=== PATIENT | female | born 1980 | race Caucasian/White ===

== ENCOUNTER 2016-12-02 13:29 | Emergency (ER) | payer OTHER ==
[2016-12-02 13:33] VITALS: BP 126/63; PULSE 96; TEMP 97.6; BMI 33.9
--- NOTE | 2016-12-02 13:58 | PDOC ---
History of Present Illness - General Chief Complaint: Injury Stated Complaint: FEVER, EYE PAIN, FOOT PAIN Time Seen by Provider: 12/02/16 13:47 History Source: Patient Exam Limitations: No Limitations - History of Present Illness Initial Comments: CHIEF COMPLAINT: 36 y/o afebrile, morbidly obese female with PMH seizures (on Topamax, sees Umberto) and migraines c/o left ankle pain and fever. HISTORY OF PRESENT ILLNESS: The patient states that 5 days ago she had a very slight seizure. Her mother states it always takes her a while to get back to "normal" after a seizure. For the past few days she's had a fever and yesterday she tripped, twisting her left ankle but hitting the left side of her head on a dresser when she fell. She is unsure of LOC. She states she is mainly here for her ankle but is concerned she has a cough and fever and wants to make sure she doesn't have pneumonia. She denies changes in vision/hearing, SNEED, neck pain, bleeding from ears/eyes, n/v/d, SOB, abd pain. She has been taking tylenol and motrin for fever with last motrin dose a few hours before coming to the ER. Vital signs on arrival are within normal limits. REVIEW OF SYSTEMS: GENERAL/CONSTITUTIONAL: +fever. No weakness. No weight change. HEAD, EYES, EARS, NOSE AND THROAT: No change in vision. No ear pain or discharge. No sore throat. CARDIOVASCULAR: No chest pain or shortness of breath. RESPIRATORY: +cough. No wheezing or hemoptysis. GASTROINTESTINAL: No abd pain, nausea, vomiting, diarrhea. GENITOURINARY: No dysuria, frequency, or change in urination. MUSCULOSKELETAL: +left ankle pain and swelling. No neck or back pain. SKIN: No rash or easy bruising. NEUROLOGIC: +seizure a few days ago. ?LOC. No headache, vertigo, or loss of sensation. PHYSICAL EXAM: GENERAL: The patient is awake, alert, and fully oriented, in no acute distress. She is ambulatory but with pain. No cough throughout exam. HEAD: Normal with no signs of trauma. No hematomas or areas of ecchymosis. No battles signs. ENT: Pupils equal, round and reactive to light, extraocular movements intact, sclera anicteric, conjunctiva clear. Neck supple. No hemotympanum b/l. No raccoon eyes. LUNGS: Clear to auscultation bilaterally. Normal excursion. No respiratory distress or use of accessory muscles. CV: RRR, S1/S2, no MRG. Cap refill < 2 sec. ABDOMEN: Soft, non-distended, non-tender even to deep palpation, no hepatomegaly or splenomegaly, no masses. EXTREMITIES: Minimal edema to left ankle over lateral malleolus. Full ROM of left ankle but with pain. TTP of medial and lateral malleolus. No erythema, obvious deformities or warmth. NEUROLOGICAL: Normal speech, normal gait. CN II-XII grossly intact. No slurred speech. No facial drooping. PSYCH: Normal mood, normal affect. SKIN: Warm, dry, normal turgor, no rashes or lesions noted. Past History - Past Medical History Allergies/Adverse Reactions: Allergies Allergy/AdvReac Type Severity Reaction Status Date / Time Penicillins Allergy Rash Verified 12/02/16 13:33 Sulfa (Sulfonamide Allergy Verified 12/02/16 13:33 Antibiotics) Home Medications: Ambulatory Orders Alprazolam [Xanax] 1 mg PO BID 01/05/16 Naproxen [EC-Naprosyn] 375 mg PO BID #30 tablet.ec 01/05/16 Azithromycin [Zithromax 250mg Tablets -] 250 mg PO UTDICT #6 tab 12/02/16 Anemia: No Asthma: No Cancer: No Cardiac Disorders: Yes (MVP) Diabetes: No GI Disorders: Yes (GERD) Disorders: No HTN: No Psychiatric Problems: Yes (ANXIETY, INSOMNIA) Suicide Attempt (Hx): No Seizures: Yes - Immunization History Immunization Up to Date: Yes - Psycho/Social/Smoking Cessation Hx Anxiety: Yes Suicidal Ideation: No Smoking Status: No Smoking History: Never smoked Have you smoked in the past 12 months: No Number of Cigarettes Smoked Daily: 0 Hx Alcohol Use: No Drug/Substance Use Hx: No Substance Use Type: None Hx Substance Use Treatment: Yes *Physical Exam - Vital Signs Last Vital Signs Temp Pulse Resp BP Pulse Ox 97.6 F 96 H 18 126/63 100 12/02/16 13:30 12/02/16 13:30 12/02/16 13:30 12/02/16 13:30 05/07/17 13:30 Medical Decision Making - Medical Decision Making A/P: 36 y/o female with left ankle injury and cough with fever. Plan is as follows: 1. hcg 2. CXR 3. Left ankle/foot xray Suggested head CT but the patient states she has seizures quite often and doesn' t have a head CT every time. She did say she is following up with Dr. Shipman this week and therefore refusing head CT. CXR IMPRESSION: Right middle lobe infiltrate Left foot xray IMPRESSION: No acute pathology. The patient now decided she would like a head CT Will give PO azithro for PNA Head CT IMPRESSION: Normal CT of the head Will d/c to home with rx for zpack for pneumonia. Suggested she continue taking motrin/tylenol for fever and drink plenty of fluids. Suggested she also drink plenty of fluids, get lots of rest, take her seizure meds as prescribed and f/u wtih Dr. Shipman this week. Pt instructed to return to the ER with any worsening or concerning symptoms. The patient verbalizes understanding of all instructions, has no further questions and is awaiting discharge. *DC/Admit/Observation/Transfer Diagnosis at time of Disposition: Community acquired pneumonia Sprain of ankle Qualifiers: Encounter type: initial encounter Involved ligament of ankle: unspecified ligament Laterality: left Qualified Code(s): S93.402A - Sprain of unspecified ligament of left ankle, initial encounter - Discharge Dispostion Disposition: HOME Condition at time of disposition: Good - Prescriptions Prescriptions: Azithromycin [Zithromax 250mg Tablets -] 250 mg PO UTDICT #6 tab - Referrals Referrals: Luis Guzmán MD [Primary Care Provider] - - Patient Instructions Printed Discharge Instructions: DI for Pneumonia -- Adult, DI for Ankle Sprain , How To Perform RICE (Rest, Ice, Compress, Elevate) Additional Instructions: Discharge Instructions: -Take antibiotics as prescribed; a prescription was sent to your pharmacy -Take your seizure meds as prescribed -Take Tylenol or motrin for fever and drink plenty of fluids -Follow RICE instructions for your ankle -Follow up with Dr. Shipman this week -Return to the ER with any worsening or concerning symptoms.
[2016-12-02] MEDS ORDERED: AZITHROMYCIN 250 MG TABLET PO ONE (15:27)
[2016-12-02] MEDS ORDERED: AZITHROMYCIN 250 MG TABLET ONE (15:30)
== END 2016-12-02 16:15 | disposition home or self-care (01) ==
LOC: JERFT 13:29
DX: J18.9 Pneumonia, unspecified organism (principal); F41.9 Anxiety disorder, unspecified; K21.9 Gastro-esophageal reflux disease without esophagitis; G47.00 Insomnia, unspecified
CPT/HCPCS: 70450-TC; 71020-TC; 73610-TC-LT; 73630-TC-LT; 84703; 99281-25

== ENCOUNTER 2017-12-13 14:03 | Inpatient (IN) | payer OTHER ==
[2017-12-13 15:21] VITALS: BMI 40.6
--- NOTE | 2017-12-13 19:52 | HP ---
CIWA Score - CIWA Score Nausea/Vomitin Muscle Tremors: 3 Anxiety: 6 Agitation: 3 Paroxysmal Sweats: 2 Orientation: 0-Oriented Tacttile Disturbances: 3-Moderate Itch/Numb/Burn Auditory Disturbances: 2-Mild Harshness/Frighten Visual Disturbances: 2-Mild Sensitivity Headache: 2-Mild CIWA-Ar Total Score: 26 Admission ROS BHS - HPI Chief Complaint: DEPENDENT ON PRESCRIBED XANAX ON 50 MGS. OF MMTP FROM [facility] - LAST DOSE TODAY Allergies/Adverse Reactions: Allergies Allergy/AdvReac Type Severity Reaction Status Date / Time Penicillins Allergy Rash Verified 12/13/17 19:07 Sulfa (Sulfonamide Allergy Verified 12/13/17 19:07 Antibiotics) History of Present Illness: THE PT. IS REQUESTING ADMISSION TO THE DETOX UNIT FOR DETOX OF XANAX Exam Limitations: No Limitations - Ebola screening Have you traveled outside of the country in the last 21 days: No (N) Have you had contact with anyone from an Ebola affected area: No Have you been sick,other than usual withdrawal symptoms: No Do you have a fever: No - Review of Systems Constitutional: See HPI EENT: reports: See HPI, Tearing, Nose Congestion Respiratory: reports: See HPI Cardiac: reports: See HPI GI: reports: See HPI, Nausea, Abdominal cramping : reports: See HPI Musculoskeletal: reports: See HPI, Muscle Pain, Muscle Weakness Integumentary: reports: See HPI, Sweating Neuro: reports: See HPI, Headache, Seizure, Tremors Endocrine: reports: See HPI Hematology: reports: See HPI Psychiatric: reports: Judgement Intact, Orientated x3, Anxious, Depressed Patient History - Patient Medical History Hx Anemia: No Hx Asthma: No Hx Chronic Obstructive Pulmonary Disease (COPD): No Hx Cancer: No Hx Cardiac Disorders: Yes (MVP) Hx Hypertension: No Hx Seizures: Yes (LAST SEIZURE WAS IN 2014) Hx Diabetes: No Hx Gastrointestinal Disorders: Yes (GERD) Hx Genitourinary Disorders: No Hx Sexually Transmitted Disorders: No Hx Renal Disease (ESRD): No Hx Thyroid Disease: Yes (HYPOTHYROIDISM) Hx Human Immunodeficiency Virus (HIV): No Hx Hepatitis C: No Hx Depression: Yes Hx Suicide Attempt: No Hx Schizophrenia: No Other Medical History: ANXIETY DISORDER; MIGRAINE - Patient Surgical History Past Surgical History: Yes Hx Neurologic Surgery: No Hx Cataract Extraction: No Hx Cardiac Surgery: No Hx Lung Surgery: No Hx Breast Surgery: No Hx Breast Biopsy: No Hx Abdominal Surgery: No Hx Appendectomy: No Hx Cholecystectomy: No Hx Genitourinary Surgery: No Hx Section: Yes (X 1 IN 2008) Hx Orthopedic Surgery: No Anesthesia Reaction: No - PPD History Previous Implant?: Yes Documented Results: Negative w/o proof - Reproductive History Patient is a Female of Child Bearing Age (11 -55 yrs old): Yes Last Menstrual Period: 12/06/17 Patient : No - Smoking Cessation Smoking history: Never smoked Have you smoked in the past 12 months: No Aproximately how many cigarettes per day: 0 Hx Chewing Tobacco Use: No Initiated information on smoking cessation: Yes 'Breaking Loose' booklet given: 12/13/17 - Substance & Tx. History Hx Alcohol Use: No Hx Substance Use: Yes Substance Use Type: Prescribed, Tranquilizers Hx Substance Use Treatment: No - Substances Abused Alprazolam (Xanax) Route: Oral Frequency: Daily Amount used: 3mg Age of first use: 13 Date of Last Use: 12/12/17 Family Disease History - Family Disease History Family Disease History: Diabetes: Mother (HTN) Admission Physical Exam BHS - Vital Signs Vital Signs: Vital Signs - 24 hr 12/13/17 15:17 Temperature 96.6 F L Pulse Rate 101 H Respiratory 18 Rate Blood Pressure 107/74 - Physical General Appearance: Yes: No Apparent Distress, Appropriately Dressed, Obese, Tremorous, Sweating, Anxious HEENTM: Yes: Normocephalic, Normal Voice, WENDY, Pharynx Normal, Nasal Congestion , Rhinorrhea Respiratory: Yes: Chest Non-Tender, Lungs Clear, Normal Breath Sounds, No Respiratory Distress, No Accessory Muscle Use Neck: Yes: No masses,lesions,Nodules, Supple, Trachea in good position Breast: Yes: Breast Exam Deferred, Axillae without masses, No masses Cardiology: Yes: Regular Rhythm, Regular Rate, S1, S2 Abdominal: Yes: Normal Bowel Sounds, Non Tender, Soft, Protuberent, Distended Back: Yes: Normal Inspection Musculoskeletal: Yes: full range of Motion, Gait Steady, Pelvis Stable, Muscle Pain, Muscle weakness Extremities: Yes: Normal Capillary Refill, Normal Range of Motion, Non-Tender, Tremors Neurological: Yes: 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 intact, Fully Oriented, Alert, Motor Strength 5/5, Normal Response, Depressed Affect Integumentary: Yes: Normal Color, Warm, Moist Lymphatic: Yes: Within Normal Limits - Diagnostic (1) Benzodiazepine dependence Current Visit: Yes Status: Chronic (2) Hypothyroid Current Visit: Yes Status: Chronic Qualifiers: Hypothyroidism type: unspecified Qualified Code(s): E03.9 - Hypothyroidism , unspecified (3) Obesity Current Visit: Yes Status: Chronic Qualifiers: Obesity type: unspecified obesity type (4) Seizure disorder Current Visit: Yes Status: Chronic (5) Migraine Current Visit: Yes Status: Chronic Qualifiers: Migraine type: unspecified (6) Migraine Current Visit: No Status: Chronic Cleared for Admission S - Detox or Rehab [facility] Level of Care: Medically Supervised Detox Regimen/Protocol: Valium Claeared for Rehab Admission: No S Breath Alcohol Content Breath Alcohol Content: 0 Urine Pregancy Test - Result Urine Test Results: Negative- NO Line Present Urine Drug Screen - Results Drug Screen Negative: No Urine Drug Screen Results: BZO-Benzodiazepines, MTD-Methadone
[2017-12-13] MEDS ORDERED: MAGNESIUM HYDROX 2400MG/30ML ORAL SUSPENSION 30 ML CUP PO PRN (20:07)
[2017-12-13] MEDS ORDERED: P-EPHED 60MG/TRIPROLIDI 2.5MG TABLET PO PRN (20:07)
[2017-12-13] MEDS ORDERED: hydrOXYzine PAMOATE 25 MG CAPSULE (FP) PO PRN (20:07)
[2017-12-13] MEDS ORDERED: MENTHOL/PHENOL 1 EACH UD MM PRN (20:07)
[2017-12-13] MEDS ORDERED: guaiFENesin/D-METHORPHAN HB 10 ML UNIT-DOSE CUPS PO PRN (20:07)
[2017-12-13] MEDS ORDERED: MAG HYDROX/AL HYDROX/SIMETH 30 ML UNIT-DOSE CUP PO PRN (20:07)
[2017-12-13] MEDS ORDERED: MAGNESIUM CITRATE 300 ML BOTTLE PO PRN (20:07)
[2017-12-13] MEDS ORDERED: LOPERAMIDE HCL 2 MG CAPSULE PO PRN (20:07)
[2017-12-13] MEDS ORDERED: IBUPROFEN 400 MG TABLET (FP) PO PRN (20:07)
[2017-12-13] MEDS ORDERED: diazePAM 5 MG TABLET PO ONE (20:07)
[2017-12-13] MEDS ORDERED: MELATONIN 5 MG TABLETS PO PRN (22:00)
[2017-12-13] MEDS: TOPIRAMATE 25 MG TABLET (FP) PO SCH (22:08)
[2017-12-13] MEDS: THIAMINE HCL 100 MG TABLET (FP) PO SCH (22:08)
[2017-12-13] MEDS: diazePAM 5 MG TABLET PO SCH (22:41)
[2017-12-14 02:05] LABS: URINE APPEARANCE SLCLOUDY; URINE BILIRUBIN NEGATIVE (<2.0 mg/dL); URINE COLOR DKYELLOW; URINE GLUCOSE (UA) NEGATIVE (NEGATIVE); URINE KETONE NEGATIVE (NEGATIVE); URINE LEUK ESTERASE TRACE (NEGATIVE); URINE NITRITE POSITIVE (NEGATIVE); URINE PROTEIN NEGATIVE (NEGATIVE); URINE UROBILINOGEN NEGATIVE mg/dL (0.2-1.0)
[2017-12-14 02:07] LABS: EPI CELLS MODERATE /HPF (FEW); URINE BACTERIA MANY /hpf (NONE SEEN); URINE MUCUS MANY
[2017-12-14] MEDS ORDERED: LEVOTHYROXINE NA 50 MCG TABLET (FP) PO SCH (07:00)
[2017-12-14] MEDS: diazePAM 5 MG TABLET PO SCH ×3 (07:43→22:46)
[2017-12-14] MEDS: diazePAM 5 MG TABLET PO PRN ×2 (10:11→17:40)
[2017-12-14] MEDS: PRENATAL VITAMINS W/ FOLIC ACID TABLET (FP) PO SCH (10:11)
[2017-12-14 10:45] LABS: HEMATOCRIT 37.9 % (32.4-45.2); HEMOGLOBIN 12.7 GM/dL (10.7-15.3); MCH 27.5 pg (25.7-33.7); MCHC 33.5 g/dl (32.0-36.0); MEAN CELL VOLUME 82.1 fl (80-96); MEAN PLT VOLUME 8.3 fl (7.5-11.1); PLATELET COUNT 244 K/MM3 (134-434); RBC 4.62 M/mm3 (3.60-5.2); RDW 15.1 % (11.6-15.6); WHITE BLOOD COUNT 6.7 K/mm3 (4.0-10.0)
[2017-12-14 10:53] LABS: CHLORIDE 109 mmol/L (98-107); SGPT/ALT 16 U/L (12-78); SODIUM 142 mmol/L (136-145)
[2017-12-14 11:00] LABS: ALBUMIN 3.4 g/dl (3.4-5.0); ALK PHOS 88 U/L (45-117); ANION GAP 7 (8-16); BILIRUBIN,TOTAL 0.4 mg/dL (0.2-1.0); BLOOD UREA NITROGEN 14 mg/dL (7-18); CALCIUM 8.2 mg/dL (8.5-10.1); CO2 26 mmol/L (21-32); CREATININE 0.9 mg/dL (0.55-1.02); GLUCOSE,RANDOM 76 mg/dL (74-106); TOT PROT 6.7 g/dl (6.4-8.2)
[2017-12-14 11:04] LABS: POTASSIUM 4.1 mmol/L (3.5-5.1)
[2017-12-14 11:05] LABS: SGOT/AST 16 U/L (15-37)
--- NOTE | 2017-12-14 11:36 | PN ---
S CIWA - CIWA Score Nausea/Vomitin Muscle Tremors: 3 Anxiety: 3 Agitation: 2 Paroxysmal Sweats: 3 Orientation: 0-Oriented Tacttile Disturbances: 0-None Auditory Disturbances: 0-None Visual Disturbances: 0-None Headache: 0-None Present CIWA-Ar Total Score: 14 BHS Progress Note (SOAP) Subjective: Shakes sweats sleep disturbance Objective: 12/14/17 11:28 A 7 O x 3 Ambulating steadily No acute distress Vital Signs Temperature 98.1 F 12/14/17 09:24 Pulse Rate 72 12/14/17 09:24 Respiratory Rate 16 12/14/17 09:24 Blood Pressure 109/63 12/14/17 09:24 O2 Sat by Pulse Oximetry (%) Laboratory Last Values WBC 6.7 K/mm3 (4.0-10.0) 12/14/17 07:50 RBC 4.62 M/mm3 (3.60-5.2) 12/14/17 07:50 Hgb 12.7 GM/dL (10.7-15.3) 12/14/17 07:50 Hct 37.9 % (32.4-45.2) 12/14/17 07:50 MCV 82.1 fl (80-96) 12/14/17 07:50 MCH 27.5 pg (25.7-33.7) 12/14/17 07:50 MCHC 33.5 g/dl (32.0-36.0) 12/14/17 07:50 RDW 15.1 % (11.6-15.6) D 12/14/17 07:50 Plt Count 244 K/MM3 (134-434) 12/14/17 07:50 MPV 8.3 fl (7.5-11.1) 12/14/17 07:50 Sodium 142 mmol/L (136-145) 12/14/17 07:50 Potassium 4.1 mmol/L (3.5-5.1) 12/14/17 07:50 Chloride 109 mmol/L (98-107) H 12/14/17 07:50 Carbon Dioxide 26 mmol/L (21-32) 12/14/17 07:50 Anion Gap 7 (8-16) L 12/14/17 07:50 BUN 14 mg/dL (7-18) 12/14/17 07:50 Creatinine 0.9 mg/dL (0.55-1.02) 12/14/17 07:50 Creat Clearance w eGFR > 60 (>60) 12/14/17 07:50 Random Glucose 76 mg/dL (74-106) 12/14/17 07:50 Calcium 8.2 mg/dL (8.5-10.1) L 12/14/17 07:50 Total Bilirubin 0.4 mg/dL (0.2-1.0) D 12/14/17 07:50 AST 16 U/L (15-37) 12/14/17 07:50 ALT 16 U/L (12-78) 12/14/17 07:50 Alkaline Phosphatase 88 U/L (45-117) 12/14/17 07:50 Total Protein 6.7 g/dl (6.4-8.2) 12/14/17 07:50 Albumin 3.4 g/dl (3.4-5.0) 12/14/17 07:50 Urine Color Dkyellow 12/13/17 22: Urine Appearance Slcloudy 12/13/17 22: Urine pH 5.0 (5.0-8.0) 12/13/17 22: Ur Specific [place] 1.018 (1.001-1.035) 12/13/17 22: Urine Protein Negative (NEGATIVE) 12/13/17 22: Urine Glucose (UA) Negative (NEGATIVE) 12/13/17 22: Urine Ketones Negative (NEGATIVE) 12/13/17 22: Urine Blood Negative (NEGATIVE) 12/13/17 22: Urine Nitrite Positive (NEGATIVE) 12/13/17 22: Urine Bilirubin Negative (<2.0 mg/dL) 12/13/17 22: Urine Urobilinogen Negative mg/dL (0.2-1.0) 12/13/17 22: Ur Leukocyte Esterase Trace (NEGATIVE) 12/13/17 22: Urine WBC (Auto) 2 /hpf (3-5) 12/13/17 22: Urine RBC (Auto) 3 /hpf (0-3) 12/13/17 22:19 Ur Epithelial Cells Moderate /HPF (FEW) 12/13/17 22:19 Urine Bacteria Many /hpf (NONE SEEN) 12/13/17 22:19 Urine Mucus Many 12/13/17 22:19 labs noted, UA indicative of UTI, pt denies any symptoms Assessment: 12/14/17 11:36 Withdrawal sx Plan: continue detox increase hydration Urine culture
[2017-12-14] MEDS ORDERED: METHADONE HCL 10 MG TABLET PO ONE (11:44)
[2017-12-14] MEDS: LEVOTHYROXINE NA 25 MCG TABLET (FP) PO SCH (11:47)
[2017-12-14] MEDS ORDERED: METHADONE 40 MG, METHADONE 10 MG PO ONE (12:00)
[2017-12-14] MEDS ORDERED: METHADONE HCL 10 MG TABLET ONE (12:02)
[2017-12-14] MEDS ORDERED: METHADONE HCL 40 MG DISPERSABLE TABLET ONE (12:02)
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
[2017-12-14] MEDS: QUEtiapine FUMARATE 100 MG TABLET (FP) PO SCH (22:45)
[2017-12-14] MEDS: THIAMINE HCL 100 MG TABLET (FP) PO SCH (22:45)
[2017-12-14] MEDS: TOPIRAMATE 25 MG TABLET (FP) PO SCH (22:46)
[2017-12-15] MEDS ORDERED: METHADONE HCL 40 MG DISPERSABLE TABLET ONE (04:21)
[2017-12-15] MEDS ORDERED: METHADONE HCL 10 MG TABLET ONE (04:22)
[2017-12-15] MEDS ORDERED: METHADONE HCL 10 MG TABLET PO SCH (06:00)
[2017-12-15] MEDS: LEVOTHYROXINE NA 25 MCG TABLET (FP) PO SCH (06:19)
[2017-12-15] MEDS: METHADONE 40 MG, METHADONE 10 MG PO SCH (06:21)
[2017-12-15] MEDS: diazePAM 5 MG TABLET PO PRN ×3 (06:22→17:39)
[2017-12-15] MEDS: PRENATAL VITAMINS W/ FOLIC ACID TABLET (FP) PO SCH (10:40)
[2017-12-15] MEDS: diazePAM 5 MG TABLET PO SCH ×2 (10:40→22:24)
--- NOTE | 2017-12-15 12:14 | PN ---
[facility] CIWA - CIWA Score Nausea/Vomitin-No Nausea/No Vomiting Muscle Tremors: 3 Anxiety: 3 Agitation: 3 Paroxysmal Sweats: 2 Orientation: 0-Oriented Tacttile Disturbances: 0-None Auditory Disturbances: 0-None Visual Disturbances: 0-None Headache: 0-None Present CIWA-Ar Total Score: 11 [facility] Progress Note (SOAP) Subjective: sweats anxiety body aches constipation Objective: 12/15/17 12:13 Vital Signs Temperature 97.7 F 12/15/17 10:24 Pulse Rate 71 12/15/17 10:24 Respiratory Rate 18 12/15/17 10:24 Blood Pressure 105/53 12/15/17 10:24 O2 Sat by Pulse Oximetry (%) Laboratory Tests 12/13/17 12/14/17 12/14/17 22:19 07:50 07:50 WBC 6.7 RBC 4.62 Hgb 12.7 Hct 37.9 MCV 82.1 MCH 27.5 MCHC 33.5 RDW 15.1 D Plt Count 244 MPV 8.3 Sodium 142 Potassium 4.1 Chloride 109 H Carbon Dioxide 26 Anion Gap 7 L BUN 14 Creatinine 0.9 Creat Clearance w eGFR > 60 Random Glucose 76 Calcium 8.2 L Total Bilirubin 0.4 D AST 16 ALT 16 Alkaline Phosphatase 88 Total Protein 6.7 Albumin 3.4 Urine Color Dkyellow Urine Appearance Slcloudy Urine pH 5.0 Ur Specific [place] 1.018 Urine Protein Negative Urine Glucose (UA) Negative Urine Ketones Negative Urine Blood Negative Urine Nitrite Positive Urine Bilirubin Negative Urine Urobilinogen Negative Ur Leukocyte Esterase Trace Urine WBC (Auto) 2 Urine RBC (Auto) 3 Ur Epithelial Cells Moderate Urine Bacteria Many Urine Mucus Many RPR Titer 12/14/17 07:50 WBC RBC Hgb Hct MCV MCH MCHC RDW Plt Count MPV Sodium Potassium Chloride Carbon Dioxide Anion Gap BUN Creatinine Creat Clearance w eGFR Random Glucose Calcium Total Bilirubin AST ALT Alkaline Phosphatase Total Protein Albumin Urine Color Urine Appearance Urine pH Ur Specific [place] Urine Protein Urine Glucose (UA) Urine Ketones Urine Blood Urine Nitrite Urine Bilirubin Urine Urobilinogen Ur Leukocyte Esterase Urine WBC (Auto) Urine RBC (Auto) Ur Epithelial Cells Urine Bacteria Urine Mucus RPR Titer Nonreactive aaox3 ambulating no acute distress pending repeated u/a Assessment: 12/15/17 12:14 withdrawal sx Plan: continue detox increase fluids colace tid encourage nestor
[2017-12-15] MEDS: DOCUSATE SODIUM 100 MG CAPSULE (FP) PO SCH ×2 (13:17→22:24)
[2017-12-15] MEDS: QUEtiapine FUMARATE 100 MG TABLET (FP) PO SCH (22:24)
[2017-12-15] MEDS: TOPIRAMATE 25 MG TABLET (FP) PO SCH (22:24)
[2017-12-15] MEDS: THIAMINE HCL 100 MG TABLET (FP) PO SCH (22:24)
[2017-12-16] MEDS: diazePAM 5 MG TABLET PO PRN ×3 (02:26→17:13)
[2017-12-16] MEDS ORDERED: METHADONE HCL 40 MG DISPERSABLE TABLET ONE (05:00)
[2017-12-16] MEDS ORDERED: METHADONE HCL 10 MG TABLET ONE (05:00)
[2017-12-16] MEDS: DOCUSATE SODIUM 100 MG CAPSULE (FP) PO SCH ×3 (05:41→22:54)
[2017-12-16] MEDS: METHADONE 40 MG, METHADONE 10 MG PO SCH (05:42)
[2017-12-16] MEDS: LEVOTHYROXINE NA 25 MCG TABLET (FP) PO SCH (06:23)
[2017-12-16] MEDS: ACETAMINOPHEN 325 MG TABLET (FP) PO PRN ×2 (10:32→17:13)
[2017-12-16] MEDS: PRENATAL VITAMINS W/ FOLIC ACID TABLET (FP) PO SCH (10:32)
[2017-12-16] MEDS: diazePAM 5 MG TABLET PO SCH ×2 (10:34→22:17)
--- NOTE | 2017-12-16 11:19 | PN ---
[facility] Progress Note (SOAP) Subjective: feeling better no tremor no sweat slept throughout the night social with peers in day room Objective: 12/16/17 11:18 Vital Signs Temperature 96.8 F L 12/16/17 09:41 Pulse Rate 84 12/16/17 09:41 Respiratory Rate 18 12/16/17 09:41 Blood Pressure 108/73 12/16/17 09:41 O2 Sat by Pulse Oximetry (%) Laboratory Last Values WBC 6.7 K/mm3 (4.0-10.0) 12/14/17 07:50 RBC 4.62 M/mm3 (3.60-5.2) 12/14/17 07:50 Hgb 12.7 GM/dL (10.7-15.3) 12/14/17 07:50 Hct 37.9 % (32.4-45.2) 12/14/17 07:50 MCV 82.1 fl (80-96) 12/14/17 07:50 MCH 27.5 pg (25.7-33.7) 12/14/17 07:50 MCHC 33.5 g/dl (32.0-36.0) 12/14/17 07:50 RDW 15.1 % (11.6-15.6) D 12/14/17 07:50 Plt Count 244 K/MM3 (134-434) 12/14/17 07:50 MPV 8.3 fl (7.5-11.1) 12/14/17 07:50 Sodium 142 mmol/L (136-145) 12/14/17 07:50 Potassium 4.1 mmol/L (3.5-5.1) 12/14/17 07:50 Chloride 109 mmol/L (98-107) H 12/14/17 07:50 Carbon Dioxide 26 mmol/L (21-32) 12/14/17 07:50 Anion Gap 7 (8-16) L 12/14/17 07:50 BUN 14 mg/dL (7-18) 12/14/17 07:50 Creatinine 0.9 mg/dL (0.55-1.02) 12/14/17 07:50 Creat Clearance w eGFR > 60 (>60) 12/14/17 07:50 Random Glucose 76 mg/dL (74-106) 12/14/17 07:50 Calcium 8.2 mg/dL (8.5-10.1) L 12/14/17 07:50 Total Bilirubin 0.4 mg/dL (0.2-1.0) D 12/14/17 07:50 AST 16 U/L (15-37) 12/14/17 07:50 ALT 16 U/L (12-78) 12/14/17 07:50 Alkaline Phosphatase 88 U/L (45-117) 12/14/17 07:50 Total Protein 6.7 g/dl (6.4-8.2) 12/14/17 07:50 Albumin 3.4 g/dl (3.4-5.0) 12/14/17 07:50 Urine Color Dkyellow 12/13/17 22:19 Urine Appearance Slcloudy 12/13/17 22:19 Urine pH 5.0 (5.0-8.0) 12/13/17 22:19 Ur Specific [place] 1.018 (1.001-1.035) 12/13/17 22:19 Urine Protein Negative (NEGATIVE) 12/13/17 22:19 Urine Glucose (UA) Negative (NEGATIVE) 12/13/17 22:19 Urine Ketones Negative (NEGATIVE) 12/13/17 22:19 Urine Blood Negative (NEGATIVE) 12/13/17 22: Urine Nitrite Positive (NEGATIVE) 12/13/17 22: Urine Bilirubin Negative (<2.0 mg/dL) 12/13/17 22:19 Urine Urobilinogen Negative mg/dL (0.2-1.0) 12/13/17 22:19 Ur Leukocyte Esterase Trace (NEGATIVE) 12/13/17 22:19 Urine WBC (Auto) 2 /hpf (3-5) 12/13/17 22:19 Urine RBC (Auto) 3 /hpf (0-3) 12/13/17 22:19 Ur Epithelial Cells Moderate /HPF (FEW) 12/13/17 22:19 Urine Bacteria Many /hpf (NONE SEEN) 12/13/17 22:19 Urine Mucus Many 12/13/17 22:19 RPR Titer Nonreactive (NONREACTIVE) 12/14/17 07:50 lab noted 12/16/17 11:20 asymptomatic uti Assessment: 12/16/17 11:20 mild withdrawal sx Plan: medically supervised detox increase oral fluid personal hygiene
[2017-12-16] MEDS: QUEtiapine FUMARATE 100 MG TABLET (FP) PO SCH (22:17)
[2017-12-16] MEDS: THIAMINE HCL 100 MG TABLET (FP) PO SCH (22:17)
[2017-12-16] MEDS: TOPIRAMATE 25 MG TABLET (FP) PO SCH (22:18)
--- NOTE | 2017-12-17 00:51 | EKG ---
Test Reason : Blood Pressure : / mmHG Vent. Rate : 084 BPM Atrial Rate : 084 BPM P-R Int : 142 ms QRS Dur : 096 ms QT Int : 390 ms P-R-T Axes : 049 -02 026 degrees QTc Int : 460 ms NORMAL SINUS RHYTHM NORMAL ECG WHEN COMPARED WITH ECG OF 28-JUL-2015 17:42, NO SIGNIFICANT CHANGE WAS FOUND Confirmed by HANH TURNER MD ([id number]) on 12/17/2017 12:51:30 AM Referred By: Confirmed By:HANH TURNER MD
[2017-12-17] MEDS ORDERED: METHADONE HCL 40 MG DISPERSABLE TABLET ONE (04:54)
[2017-12-17] MEDS ORDERED: METHADONE HCL 10 MG TABLET ONE (04:55)
[2017-12-17] MEDS: METHADONE 40 MG, METHADONE 10 MG PO SCH (05:56)
[2017-12-17] MEDS: LEVOTHYROXINE NA 25 MCG TABLET (FP) PO SCH (06:35)
[2017-12-17] MEDS: DOCUSATE SODIUM 100 MG CAPSULE (FP) PO SCH (07:12)
[2017-12-17 09:21] VITALS: BP 128/78; PULSE 95; TEMP 96.4
[2017-12-17] MEDS ORDERED: diazePAM 5 MG TABLET PO SCH (10:00)
--- NOTE | 2017-12-17 11:08 | DS ---
[facility] Detox Discharge Summary Admission Date: 12/13/17 Discharge Date: 12/17/17 - History Present History: Sedative Dependence Additional Comments: 37 years old female admitted to 12/13/17 for benzos withdrawal sx completed detox regimen tolerated well denies banzos withdrawal sx alert oriented x 3 wants to return home for fresh clothing and return to [facility] recommend community self management groups and self support meetings - Physical Exam Results Vital Signs: Vital Signs Temperature 96.4 F L 12/17/17 09:20 Pulse Rate 95 H 12/17/17 09:20 Respiratory Rate 20 12/17/17 09:20 Blood Pressure 128/78 12/17/17 09:20 O2 Sat by Pulse Oximetry (%) Pertinent Admission Physical Exam Findings: withdrawal sx Vital Signs Temperature 96.4 F L 12/17/17 09:20 Pulse Rate 95 H 12/17/17 09:20 Respiratory Rate 20 12/17/17 09:20 Blood Pressure 128/78 12/17/17 09:20 O2 Sat by Pulse Oximetry (%) Laboratory Last Values WBC 6.7 K/mm3 (4.0-10.0) 12/14/17 07:50 RBC 4.62 M/mm3 (3.60-5.2) 12/14/17 07:50 Hgb 12.7 GM/dL (10.7-15.3) 12/14/17 07:50 Hct 37.9 % (32.4-45.2) 12/14/17 07:50 MCV 82.1 fl (80-96) 12/14/17 07:50 MCH 27.5 pg (25.7-33.7) 12/14/17 07:50 MCHC 33.5 g/dl (32.0-36.0) 12/14/17 07:50 RDW 15.1 % (11.6-15.6) D 12/14/17 07:50 Plt Count 244 K/MM3 (134-434) 12/14/17 07:50 MPV 8.3 fl (7.5-11.1) 12/14/17 07:50 Sodium 142 mmol/L (136-145) 12/14/17 07:50 Potassium 4.1 mmol/L (3.5-5.1) 12/14/17 07:50 Chloride 109 mmol/L (98-107) H 12/14/17 07:50 Carbon Dioxide 26 mmol/L (21-32) 12/14/17 07:50 Anion Gap 7 (8-16) L 12/14/17 07:50 BUN 14 mg/dL (7-18) 12/14/17 07:50 Creatinine 0.9 mg/dL (0.55-1.02) 12/14/17 07:50 Creat Clearance w eGFR > 60 (>60) 12/14/17 07:50 Random Glucose 76 mg/dL (74-106) 12/14/17 07:50 beau Calcium 8.2 mg/dL (8.5-10.1) L 12/14/17 07:50 Total Bilirubin 0.4 mg/dL (0.2-1.0) D 12/14/17 07:50 AST 16 U/L (15-37) 12/14/17 07:50 ALT 16 U/L (12-78) 12/14/17 07:50 Alkaline Phosphatase 88 U/L (45-117) 12/14/17 07:50 Total Protein 6.7 g/dl (6.4-8.2) 12/14/17 07:50 Albumin 3.4 g/dl (3.4-5.0) 12/14/17 07:50 Urine Color Dkyellow 12/13/17 22:19 Urine Appearance Slcloudy 12/13/17 22:19 Urine pH 5.0 (5.0-8.0) 12/13/17 22:19 Ur Specific [place] 1.018 (1.001-1.035) 12/13/17 22:19 Urine Protein Negative (NEGATIVE) 12/13/17 22:19 Urine Glucose (UA) Negative (NEGATIVE) 12/13/17 22:19 Urine Ketones Negative (NEGATIVE) 12/13/17 22:19 Urine Blood Negative (NEGATIVE) 12/13/17 22: Urine Nitrite Positive (NEGATIVE) 12/13/17 22: Urine Bilirubin Negative (<2.0 mg/dL) 12/13/17 22: Urine Urobilinogen Negative mg/dL (0.2-1.0) 12/13/17 22:19 Ur Leukocyte Esterase Trace (NEGATIVE) 12/13/17 22:19 Urine WBC (Auto) 2 /hpf (3-5) 12/13/17 22:19 Urine RBC (Auto) 3 /hpf (0-3) 12/13/17 22:19 Ur Epithelial Cells Moderate /HPF (FEW) 12/13/17 22:19 Urine Bacteria Many /hpf (NONE SEEN) 12/13/17 22:19 Urine Mucus Many 12/13/17 22:19 RPR Titer Nonreactive (NONREACTIVE) 12/14/17 07:50 lab noted increase oral fluid asymptomatic - Treatment Hospital Course: Detox Protocol Followed, Detoxed Safely, Responded well, Discharged Condition Good, Rehab Referral Accepted Patient has Accepted a Re[facility] Referral to: [facility] - Medication Discharge Medications: Ambulatory Orders Alprazolam [Xanax] 1 mg PO BID 01/05/16 Naproxen [EC-Naprosyn 375 MG] 375 mg PO BID #30 tablet.ec 01/05/16 Topiramate [Topamax -] 50 mg PO BID 12/13/17 Levothyroxine [Synthroid -] 50 mcg PO DAILY #30 tablet 12/16/17 Methadone [Dolophine -] 50 mg PO DAILY 12/16/17 Quetiapine Fumarate [Seroquel] 100 mg PO HS #30 tablet 12/17/17 - Diagnosis (1) Benzodiazepine dependence Status: Acute (2) Opioid dependence on agonist therapy Status: Chronic (3) Hypothyroid Status: Chronic Qualifiers: Hypothyroidism type: unspecified Qualified Code(s): E03.9 - Hypothyroidism , unspecified - AMA Did Patient Leave Against Medical Advice: No
== END 2017-12-17 09:18 | disposition home or self-care (01) | DRG 773 ==
LOC: YASAS 14:03 → Y6N 20:02
PROVIDERS: ADMIT Surgery; ATTEND Surgery
PROC: HZ2ZZZZ Detoxification Services for Substance Abuse Treatment (ICD-10-PCS; principal; 2017-12-13)
DX: F11.20 Opioid dependence, uncomplicated (principal); F13.20 Sedative, hypnotic or anxiolytic dependence, uncomplicated; F31.9 Bipolar disorder, unspecified; F19.24 Other psychoactive substance dependence with psychoactive substance-induced mood disorder; F41.9 Anxiety disorder, unspecified; G43.909 Migraine, unspecified, not intractable, without status migrainosus; G47.00 Insomnia, unspecified; E66.9 Obesity, unspecified; Z68.41 Body mass index [BMI] 40.0-44.9, adult; Z86.69 Personal history of other diseases of the nervous system and sense organs; Z91.14 Patient's other noncompliance with medication regimen
CPT/HCPCS: 36415; 80053; 81003; 81015; 85027; 86593; 93005; 93010

== ENCOUNTER 2018-06-05 12:36 | Emergency (ER) | payer OTHER ==
[2018-06-05 12:41] VITALS: BP 103/57; PULSE 96; TEMP 98.2; BMI 35.5
[2018-06-05] MEDS ORDERED: ALBUTEROL SO4 2.5/IPRATROPIUM 0.5 INH SOL 3 ML VIAL.NEB. NEB ONE ×2 (13:03→13:32)
--- NOTE | 2018-06-05 13:06 | PDOC ---
History of Present Illness - General Chief Complaint: Cold Symptoms Stated Complaint: CONGESTED, SORE THROAT Time Seen by Provider: 06/05/18 12:47 History Source: Patient Exam Limitations: No Limitations - History of Present Illness Initial Comments: 06/05/18 13:03 38 yr female with c/o sore throat cough fever, urinary pain and urgency for 3 days. Pt denies vomiting or shortness of breath. Pt states she has wheezing at night. no back pain. Timing/Duration: reports: constant (3 days) Severity: reports: mild Past History - Past Medical History Allergies/Adverse Reactions: Allergies Allergy/AdvReac Type Severity Reaction Status Date / Time Penicillins Allergy Rash Verified 06/05/18 12:41 Sulfa (Sulfonamide Allergy Verified 06/05/18 12:41 Antibiotics) Home Medications: Ambulatory Orders Alprazolam [Xanax] 1 mg PO BID 01/05/16 Naproxen [EC-Naprosyn 375 MG] 375 mg PO BID #30 tablet.ec 01/05/16 Topiramate [Topamax -] 50 mg PO BID 12/13/17 Levothyroxine [Synthroid -] 50 mcg PO DAILY #30 tablet 12/16/17 Methadone [Dolophine -] 50 mg PO DAILY 12/16/17 Quetiapine Fumarate [Seroquel] 100 mg PO HS #30 tablet 12/17/17 Hydrocortisone Acetate [Hydrocortisone] 28 gm TP BID PRN #1 oint...g. 03/08/18 Naproxen [Naprosyn -] 500 mg PO TID #30 tablet 03/08/18 Albuterol Sulfate Inhaler - [Ventolin HFA Inhaler -] 1 - 2 inh PO QID #1 inhaler 06/05/18 Nitrofurantoin Macrocrystal [Macrodantin] 100 mg PO BID #14 capsule 06/05/18 Phenazopyridine HCl [Pyridium -] 200 mg PO PC #12 tablet 06/05/18 Anemia: No Asthma: No Cancer: No Cardiac Disorders: Yes (MVP) COPD: No Diabetes: No GI Disorders: Yes (GERD) Disorders: No HTN: No Kidney Stones: No Psychiatric Problems: Yes (ANXIETY, INSOMNIA) Seizures: Yes (LAST SEIZURE WAS IN 2014) Thyroid Disease: Yes (HYPOTHYROIDISM) Other medical history: leiden factor 5, obesity - Surgical History Abdominal Surgery: No Appendectomy: No Cardiac Surgery: No Cholecystectomy: No Lung Surgery: No Neurologic Surgery: No Orthopedic Surgery: No - Reproductive History PID: No - Immunization History Immunization Up to Date: Yes - Suicide/Smoking/Psychosocial Hx Smoking Status: No Smoking History: Never smoked Have you smoked in the past 12 months: No Number of Cigarettes Smoked Daily: 0 Information on smoking cessation initiated: No 'Breaking Loose' booklet given: 12/13/17 Hx Alcohol Use: No Drug/Substance Use Hx: No Substance Use Type: None, Prescribed, Tranquilizers Hx Substance Use Treatment: No Respiratory Specific PMHX - Complaint Specific PMHX Angina: No TB (Tuberculosis): No Review of Systems - Review of Systems Able to Perform ROS?: Yes Is the patient limited [place] proficient: No Constitutional: Yes: Symptoms Reported, Fever, Night Sweats HEENTM: Yes: Symptoms Reported, Throat Pain Respiratory: Yes: Cough, Wheezing Cardiac (ROS): No: Symptoms Reported ABD/GI: No: Symptoms Reported : Yes: Symptoms Reported *Physical Exam - Vital Signs Last Vital Signs Temp Pulse Resp BP Pulse Ox 98.2 F 96 H 19 103/57 L 95 06/05/18 12:38 06/05/18 12:38 06/05/18 12:38 06/05/18 12:38 06/05/18 12:38 - Physical Exam General Appearance: Yes: Nourished, Appropriately Dressed HEENT: positive: EOMI, WENDY, TMs Normal, Pharyngeal Erythema, Tonsillar Erythema. negative: Pharynx Normal, Tonsillar Exudate Neck: positive: Supple. negative: Lymphadenopathy (R), Lymphadenopathy (L) Respiratory/Chest: positive: Lungs Clear, Normal Breath Sounds Cardiovascular: positive: Regular Rhythm, Regular Rate Gastrointestinal/Abdominal: positive: Normal Bowel Sounds, Soft. negative: Tender Rectal Exam: positive: deferred Musculoskeletal: positive: Normal Inspection. negative: CVA Tenderness, CVA Tenderness (R), CVA Tenderness (L), Vertebral Tenderness Extremity: positive: Normal Capillary Refill, Normal Inspection, Normal Range of Motion Integumentary: positive: Normal Color, Dry, Warm, Rash (scatterd abdominal red papules ) Neurologic: positive: Fully Oriented, Alert, Normal Mood/Affect, Normal Response , Motor Strength 5/5 Medical Decision Making - Medical Decision Making 06/05/18 13:05 cc: sore throat , cough, dysuria will check strep, CXR , urine r/o UTI will give duoneb now 06/05/18 17:31 pt felt better after duoneb asking to go home wants to go home and rest pt drinking pleanty of fluids dc home with her mother. dc inst verbally given to the patient and the mother all questions asked and answered *DC/Admit/Observation/Transfer Diagnosis at time of Disposition: Bronchitis Urinary tract infection Qualifiers: Urinary tract infection type: acute cystitis Hematuria presence: with hematuria Qualified Code(s): N30.01 - Acute cystitis with hematuria - Discharge Dispostion Disposition: HOME Condition at time of disposition: Good - Prescriptions Prescriptions: Albuterol Sulfate Inhaler - [Ventolin HFA Inhaler -] 1 - 2 inh PO QID #1 inhaler Nitrofurantoin Macrocrystal [Macrodantin] 100 mg PO BID #14 capsule Phenazopyridine HCl [Pyridium -] 200 mg PO PC #12 tablet - Referrals Referrals: Ludy Aparicio [Primary Care Provider] - - Patient Instructions Additional Instructions: please drink pleanty of fluids to stay well hydrated use the inhaler at home as directed take ibuprofen 600mg every 8hrs for fever or pain take the anitbiotocs and pyridium for urinary pain as directe follow with your doctor on SATURDAY for follow up return if worse - Post Discharge Activity
[2018-06-05 13:30] LABS: HCG,QUALITATIVE URINE Negative
[2018-06-05 13:39] LABS: EPI CELLS MODERATE /HPF (FEW); URINE BACTERIA MANY /hpf (NONE SEEN); URINE MUCUS MANY
[2018-06-05 14:13] LABS: PH,URINE 7.5 (5.0-8.0); URINE APPEARANCE Clear; URINE BILIRUBIN Negative (<2.0 mg/dL); URINE COLOR Yellow; URINE GLUCOSE (UA) Negative (NEGATIVE); URINE KETONE Trace (NEGATIVE); URINE LEUK ESTERASE TRACE (NEGATIVE); URINE NITRITE Positive (NEGATIVE); URINE PROTEIN 1+ (NEGATIVE)
== END 2018-06-05 14:20 | disposition home or self-care (01) ==
LOC: JERFT 12:36
PROC: 3E0F7GC Introduction of Other Therapeutic Substance into Respiratory Tract, Via Natural or Artificial Opening (ICD-10-PCS; principal; 2018-06-05)
DX: J40 Bronchitis, not specified as acute or chronic (principal); N30.01 Acute cystitis with hematuria; F41.9 Anxiety disorder, unspecified; G47.00 Insomnia, unspecified; D68.51 Activated protein C resistance; Z86.69 Personal history of other diseases of the nervous system and sense organs
CPT/HCPCS: 71046-TC-FY; 81003; 81015; 84703; 87070; 87086; 87186; 87430; 99281-25

== ENCOUNTER 2018-06-09 14:43 | Inpatient (IN) | payer OTHER ==
[2018-06-09 14:58] VITALS: BMI 35.6
--- NOTE | 2018-06-09 15:18 | PDOC ---
History of Present Illness - General Chief Complaint: Shortness of Breath Stated Complaint: SOB,REVISIT History Source: Patient, Family Exam Limitations: No Limitations - History of Present Illness Initial Comments: 06/09/18 16:35 This is a 38 year old female with a history of anxiety, depression, seizure, on methadone, who presents with shortness of breath, cough, sputum production, sore throat, fever for the past five days. Patient also endorses rash on abdomen , wrist, back. Patient visited ER on 06/05 for same symptoms with associated urinary complaints, and was diagnosed with UTI, sent home on nitrofurantoin and given a breathing treatment. At that time, rapid strep and cxr were negative. Today; patient hypoxic, 88 on RA PMH: seizure, anxiety, depression, previous drug abuse, now on methadone PSH:c sec Social history; denies any tobacco use or alcohol use ; no current drug use but on methadone Allergies: penicillin, sulfa; rxn hives 06/09/18 17:46 Past History - Past Medical History Allergies/Adverse Reactions: Allergies Allergy/AdvReac Type Severity Reaction Status Date / Time Penicillins Allergy Rash Verified 06/09/18 14:53 Sulfa (Sulfonamide Allergy Verified 06/09/18 14:53 Antibiotics) Home Medications: Ambulatory Orders Alprazolam [Xanax] 1 mg PO BID 01/05/16 Naproxen [EC-Naprosyn 375 MG] 375 mg PO BID #30 tablet.ec 01/05/16 Topiramate [Topamax -] 50 mg PO BID 12/13/17 Levothyroxine [Synthroid -] 50 mcg PO DAILY #30 tablet 12/16/17 Methadone [Dolophine -] 50 mg PO DAILY 12/16/17 Quetiapine Fumarate [Seroquel] 100 mg PO HS #30 tablet 12/17/17 Hydrocortisone Acetate [Hydrocortisone] 28 gm TP BID PRN #1 oint...g. 03/08/18 Naproxen [Naprosyn -] 500 mg PO TID #30 tablet 03/08/18 Albuterol Sulfate Inhaler - [Ventolin HFA Inhaler -] 1 - 2 inh PO QID #1 inhaler 06/05/18 Nitrofurantoin Macrocrystal [Macrodantin] 100 mg PO BID #14 capsule 11/08/18 Phenazopyridine HCl [Pyridium -] 200 mg PO PC #12 tablet 06/05/18 Anemia: No Asthma: No Cancer: No Cardiac Disorders: Yes (MVP) COPD: No Diabetes: No GI Disorders: Yes (GERD) Disorders: No HTN: No Kidney Stones: No Psychiatric Problems: Yes (ANXIETY, INSOMNIA) Seizures: Yes (LAST SEIZURE WAS IN 2014) Thyroid Disease: Yes (HYPOTHYROIDISM) - Surgical History Abdominal Surgery: No Appendectomy: No Cardiac Surgery: No Cholecystectomy: No Lung Surgery: No Neurologic Surgery: No Orthopedic Surgery: No - Reproductive History PID: No - Immunization History Immunization Up to Date: Yes - Suicide/Smoking/Psychosocial Hx Smoking Status: No Smoking History: Unknown if ever smoked Have you smoked in the past 12 months: No Number of Cigarettes Smoked Daily: 0 Information on smoking cessation initiated: No 'Breaking Loose' booklet given: 12/13/17 Hx Alcohol Use: No Drug/Substance Use Hx: No Substance Use Type: None, Prescribed, Tranquilizers Hx Substance Use Treatment: No Review of Systems - Review of Systems Able to Perform ROS?: Yes Is the patient limited [place] proficient: No Constitutional: Yes: Fever HEENTM: Yes: Throat Pain. No: Blurred Vision, Double Vision, Ear Pain, Ear Discharge, Nose Congestion, Nose Bleeding, Difficulty Swallowing Respiratory: Yes: Cough, Shortness of Breath, SOB with Exertion, SOB at Rest, Wheezing, Productive cough. No: Hemoptysis Cardiac (ROS): No: Chest Pain, Edema, Irregular Heart Rate ABD/GI: No: Abdominal Distended, Nausea, Vomiting : Yes: Frequency. No: Burning, Dysuria, Flank Pain Musculoskeletal: No: Back Pain, Joint Pain Integumentary: Yes: Rash (puritic ; raised white dots on skin). No: Bruising, Change in Color Neurological: Yes: Seizure. No: Headache, Numbness, Paresthesia, Weakness *Physical Exam - Vital Signs Last Vital Signs Temp Pulse Resp BP Pulse Ox 99.8 F H 91 H 22 H 104/68 92 L 06/09/18 14:56 06/09/18 14:56 06/09/18 14:56 06/09/18 14:56 06/09/18 14:56 - Physical Exam General Appearance: Yes: Appropriately Dressed HEENT: positive: Normal ENT Inspection, Pharynx Normal, Nasal Congestion. negative: Scleral Icterus (R), Tonsillar Erythema Neck: negative: Stridor, Lymphadenopathy (R), Lymphadenopathy (L) ED Treatment Course - LABORATORY CBC & Chemistry Diagram: 06/09/18 16:00 06/09/18 16:00 Medical Decision Making - Medical Decision Making 06/09/18 17:47 This is a 38 year old female with a history of seizure disorder, anxiety, depression, who presents with worsening sob, cough, fever, chills at home for the past five days. r/o acute broncospasm, bronchitis, pneumonia, viral URI. NO reported history of asthma, copd or smoking history. Patient was her a few days ago diagnosed with UTI, urine culture grew ESBL. OF note patient took of oxygen to cough, desaturated to 86.; may not be documented on vitals #acute hypoxic respiratory failure secondary possible to acute lung process/ with sepsis source lung/ urine ? -sepsis work up -cbc, cmp, lactic acid,vbg, ua, uc, blood culture. -cxr -start nasal O2; now at 2L -bronchodilators -1x IV steroids 06/09/18 18:03 -wbc 10.6; -will admit to hospitalist under Dr. Peter for sepsis with acute hypoxic respiratory failure for further work up for source and treatment *DC/Admit/Observation/Transfer Diagnosis at time of Disposition: Acute respiratory failure with hypoxia, Bronchospasm with bronchitis, acute, UTI (urinary tract infection) - Discharge Dispostion Condition at time of disposition: Fair Decision to Admit order: Yes - Referrals Referrals: Ludy Aparicio [Primary Care Provider] - - Patient Instructions - Post Discharge Activity
[2018-06-09] MEDS ORDERED: ALBUTEROL SO4 2.5/IPRATROPIUM 0.5 INH SOL 3 ML VIAL.NEB. NEB ONE ×5 (15:39→18:18)
[2018-06-09 16:31] LABS: BASO % 0.6 % (0-2.0); EOS % 2.2 % (0-4.5); HEMATOCRIT 36.6 % (32.4-45.2); HEMOGLOBIN 12.2 GM/dL (10.7-15.3); LYMPH % 19.9 % (8-40); MCH 28.2 pg (25.7-33.7); MCHC 33.2 g/dl (32.0-36.0); MEAN CELL VOLUME 84.8 fl (80-96); MEAN PLT VOLUME 7.7 fl (7.5-11.1); MONO % 5.5 % (3.8-10.2); NEUT % 71.8 % (42.8-82.8); PLATELET COUNT 293 K/MM3 (134-434); RBC 4.32 M/mm3 (3.60-5.2); RDW 14.3 % (11.6-15.6); WHITE BLOOD COUNT 10.6 K/mm3 (4.0-10.0)
[2018-06-09] MEDS ORDERED: SODIUM CHLORIDE 0.9% 500 ML INFUS.BAG IV ONE (16:34)
[2018-06-09 16:39] LABS: VENOUS PC02 44.9 mmHg (38-52); VENOUS PH 7.46 (7.32-7.42); VENOUS PO2 42.2 mmHg (28-48)
[2018-06-09 16:43] LABS: URINE APPEARANCE CLEAR; URINE BILIRUBIN NEGATIVE (<2.0 mg/dL); URINE COLOR AMBER; URINE GLUCOSE (UA) NEGATIVE (NEGATIVE); URINE KETONE NEGATIVE (NEGATIVE); URINE LEUK ESTERASE NEGATIVE (NEGATIVE); URINE NITRITE POSITIVE (NEGATIVE); URINE PROTEIN 1+ (NEGATIVE); URINE UROBILINOGEN 4.0 E.U/dl mg/dL (0.2-1.0)
[2018-06-09] MEDS ORDERED: methylPREDNISolone NA SUCC 125 MG/2 ML VIAL IVPUSH ONE (16:44)
[2018-06-09 16:51] LABS: INR 1.13 (0.83-1.09); PROTHROMBIN TIME (PATIENT) 13.3 SEC (9.7-13.0)
[2018-06-09 16:53] LABS: ACTIVATED PTT 26.8 SECONDS (25.2-36.5)
[2018-06-09 17:02] LABS: ALBUMIN 3.3 g/dl (3.4-5.0); ALK PHOS 86 U/L (45-117); ANION GAP 7 MMOL/L (8-16); BILIRUBIN,TOTAL 0.3 mg/dL (0.2-1); BLOOD UREA NITROGEN 10 mg/dL (7-18); CALCIUM 8.5 mg/dL (8.5-10.1); CHLORIDE 102 mmol/L (98-107); CO2 29 mmol/L (21-32); CREATININE 0.8 mg/dL (0.55-1.3); GLUCOSE,RANDOM 89 mg/dL (74-106); SGOT/AST 14 U/L (15-37); SGPT/ALT 15 U/L (13-61); SODIUM 138 mmol/L (136-145); TOT PROT 6.9 g/dl (6.4-8.2)
--- NOTE | 2018-06-09 17:23 | PDOC ---
Attending Attestation - Resident Resident Name: Stephie Pichardo - ED Attending Attestation I have performed the following: I have examined & evaluated the patient, The case was reviewed & discussed with the resident, I agree w/resident's findings & plan, Exceptions are as noted - HPI HPI: 06/09/18 17:20 38 yo F with no pmhx here with c/o sore throat, cough wheezing sob. fever and chills. was seen in ed few days ago, started on abx for uti but denies prior urinary sxs. no travel no sick contacts. no h/o prior wheezing. no tobacco use. no n/v . no leg swelling. no h/o pe or dvt. - Physicial Exam PE: 06/09/18 17:21 on exam awake alert lungs with diffuse expiratory wheezing. 89% on RA, 97% on 2L NC, normal effort. heart reg tachycardia, no mrg. abd soft ntn d. ext wwp skin warm and dry. nuero alert oriented x 3. - Medical Decision Making 06/09/18 17:22 38 yo F with bronchitis viral syndrome, differential pna, effusion, strept, sepsis. plan labs ivf, ekg cxr duonebs. steroids. will likely need admission for duonebs, due to hypoxia.
[2018-06-09 18:09] LABS: EPI CELLS RARE /HPF (FEW); URINE MUCUS MODERATE
[2018-06-09] MEDS ORDERED: methylPREDNISolone NA SUCC 125 MG/2 ML VIAL ONE (18:18)
[2018-06-09] MEDS ORDERED: HYDROCORTISONE ACETATE 25 MG/SUPP.RECT RC PRN (18:44)
[2018-06-09] MEDS ORDERED: ALBUTEROL SO4 0.083% IH SOL 2.5 MG/3 ML VIAL.NEB. NEB PRN (18:45)
[2018-06-09] MEDS ORDERED: AZITHROMYCIN IVPB 500 MG/250 ML BAG IVPB ONE (19:15)
--- NOTE | 2018-06-09 19:28 | HP ---
CHIEF COMPLAINT: SOB, cough, congestion, fever, sore throat PCP: Dr. Aparicio HISTORY OF PRESENT ILLNESS: 38 year old female with a PMH significant for Seizure disorder (last 2014), Opiate dependence (on methadone), depression, hypothyroidism, and obesity presented to the ED with worsening congestion, cough, fever, sore throat, SOB. She presented to the [facility] ED 4 days prior with respiratory and urinary complaints and was diagnosed with a UTI. She was given a nebulizer treatment and prescribed nitrofurantin but was not admitted. Urinary symptoms have subsided, but her cough, congestion, weakness has increased. She believes she had a fever at home. Her eyes are pink and itchy and she thinks she has pink eye. Denies syncope, chest pain, palpitations, n/v/d, or difficulty swallowing. No recent sick contacts, received flu vaccine 05/27/18. Upon admission to ED low grade temp of 99.8, p, 91, r 22. Labs notable for elevated WBC of 10.6, lactic acid WNL. CXR negative for acute pathology. She was given Solu-Medrol, Duonebs and 1 L of NS. Recent Travel: No PAST MEDICAL HISTORY: Seizures (last in 2014, on topamax) Opiate abuse (On methadone) Depression/anxiety Hypothyroidism Factor V Leyden deficiency PAST SURGICAL HISTORY: Social History: Smoking: No Alcohol: None Drugs: past opiate use Family History: Mother: DM, HTN, Hep C Father: Colon Cancer Allergies Penicillins Allergy (Verified 06/09/18 14:53) Rash Sulfa (Sulfonamide Antibiotics) Allergy (Verified 06/09/18 14:53) HOME MEDICATIONS: Home Medications Medication Instructions Recorded Alprazolam [Xanax] 1 mg PO BID 01/05/16 Naproxen [EC-Naprosyn 375 MG] 375 mg PO BID #30 tablet.ec 01/05/16 Topiramate [Topamax -] 50 mg PO BID 12/13/17 Levothyroxine [Synthroid -] 50 mcg PO DAILY #30 tablet 12/16/17 Methadone [Dolophine -] 50 mg PO DAILY 12/16/17 Quetiapine Fumarate [Seroquel] 100 mg PO HS #30 tablet 12/17/17 Hydrocortisone Acetate 28 gm TP BID PRN #1 oint...g. 03/08/18 [Hydrocortisone] Naproxen [Naprosyn -] 500 mg PO TID #30 tablet 03/08/18 Albuterol Sulfate Inhaler - 1 - 2 inh PO QID #1 inhaler 06/05/18 [Ventolin HFA Inhaler -] Nitrofurantoin Macrocrystal 100 mg PO BID #14 capsule 06/05/18 [Macrodantin] Phenazopyridine HCl [Pyridium -] 200 mg PO PC #12 tablet 06/05/18 REVIEW OF SYSTEMS CONSTITUTIONAL: (+) fever, chills Absent: diaphoresis, generalized weakness, malaise, loss of appetite, weight change HEENT: (+) throat pain Absent: rhinorrhea, nasal congestion, , throat swelling, difficulty swallowing , mouth swelling, ear pain, eye pain, visual changes CARDIOVASCULAR: Absent: chest pain, syncope, palpitations, irregular heart rate, lightheadedness , peripheral edema RESPIRATORY: (+) cough, sob, NEGRETE, wheezing Absent: orthopnea, wheezing, stridor, hemoptysis GASTROINTESTINAL: Absent: abdominal pain, abdominal distension, nausea, vomiting, diarrhea, constipation, melena, hematochezia GENITOURINARY: Absent: dysuria, frequency, urgency, hesitancy, hematuria, flank pain, genital pain MUSCULOSKELETAL: Absent: myalgia, arthralgia, joint swelling, back pain, neck pain SKIN: (+) Rash, itching Absent: pallor HEMATOLOGIC/IMMUNOLOGIC: Absent: easy bleeding, easy bruising, lymphadenopathy, frequent infections ENDOCRINE: Absent: unexplained weight gain, unexplained weight loss, heat intolerance, cold intolerance NEUROLOGIC: (+) headache Absent: focal weakness or paresthesias, dizziness, unsteady gait, seizure, mental status changes, bladder or bowel incontinence PSYCHIATRIC: (+) anxiety, depression Absent: suicidal or homicidal ideation, hallucinations. PHYSICAL EXAMINATION Vital Signs - 24 hr 06/09/18 14:56 Temperature 99.8 F H Pulse Rate 91 H Respiratory 22 H Rate Blood Pressure 104/68 O2 Sat by Pulse 92 L Oximetry (%) GENERAL: Ill-appearing, obese, awake, alert, and fully oriented HEAD: Normal with no signs of trauma. EYES: injected conjunctiva, pupils equal, round and reactive to light, extraocular movements intact, sclera anicteric, no lid lag. EARS, NOSE, THROAT: +Nose ring to right nostril, +NC, nares patent, oropharynx clear without exudates. Moist mucous membranes. NECK: Normal range of motion, supple without lymphadenopathy, JVD, or masses. LUNGS: Very hoarse voice, ronchorous breath sounds, expiratory wheeze HEART: Regular rate and rhythm, normal S1 and S2 without murmur, rub or gallop. ABDOMEN: Obese, Soft, nontender, not distended, normoactive bowel sounds, no guarding, no rebound, no masses. No hepatomegaly or splenomegaly. MUSCULOSKELETAL: Normal range of motion at all joints. No bony deformities or tenderness. No CVA tenderness. UPPER EXTREMITIES: 2+ pulses, warm, well-perfused. No cyanosis. No clubbing. No peripheral edema. LOWER EXTREMITIES: 2+ pulses, warm, well-perfused. No calf tenderness. No peripheral edema. NEUROLOGICAL: No facial droop, normal speech, gait not observed PSYCHIATRIC: Cooperative. Good eye contact. Appropriate mood and affect. SKIN: Warm, dry, normal turgor, no rashes or lesions noted, normal capillary refill. Laboratory Results - last 24 hr 06/09/18 06/09/18 06/09/18 16:00 16:00 16:00 WBC 10.6 H RBC 4.32 Hgb 12.2 Hct 36.6 D MCV 84.8 MCH 28.2 MCHC 33.2 RDW 14.3 Plt Count 293 MPV 7.7 D Absolute Neuts (auto) 7.6 Neutrophils % 71.8 Lymphocytes % 19.9 Monocytes % 5.5 Eosinophils % 2.2 Basophils % 0.6 Nucleated RBC % 0 PT with INR 13.30 H INR 1.13 H PTT (Actin FS) 26.8 VBG pH 7.46 H POC VBG pCO2 44.9 POC VBG pO2 42.2 Mixed VBG HCO3 31.1 H Sodium Potassium Chloride Carbon Dioxide Anion Gap BUN Creatinine Creat Clearance w eGFR Random Glucose Lactic Acid Calcium Total Bilirubin AST ALT Alkaline Phosphatase Total Protein Albumin Serum , Qual Urine Color Urine Appearance Urine pH Ur Specific Purchase Urine Protein Urine Glucose (UA) Urine Ketones Urine Blood Urine Nitrite Urine Bilirubin Urine Urobilinogen Ur Leukocyte Esterase Urine WBC (Auto) Urine RBC (Auto) Ur Epithelial Cells Urine Mucus Urine HCG, Qual 06/09/18 06/09/18 06/09/18 16:00 16:00 16:25 WBC RBC Hgb Hct MCV MCH MCHC RDW Plt Count MPV Absolute Neuts (auto) Neutrophils % Lymphocytes % Monocytes % Eosinophils % Basophils % Nucleated RBC % PT with INR INR PTT (Actin FS) VBG pH POC VBG pCO2 POC VBG pO2 Mixed VBG HCO3 Sodium 138 Potassium 4.0 Chloride 102 Carbon Dioxide 29 Anion Gap 7 L BUN 10 Creatinine 0.8 Creat Clearance w eGFR > 60 Random Glucose 89 Lactic Acid 0.8 Calcium 8.5 Total Bilirubin 0.3 AST 14 L ALT 15 Alkaline Phosphatase 86 Total Protein 6.9 Albumin 3.3 L Serum , Qual Urine Color Sarah Urine Appearance Clear Urine pH 5.0 D Ur Specific Purchase 1.027 Urine Protein 1+ H Urine Glucose (UA) Negative Urine Ketones Negative Urine Blood Negative Urine Nitrite Positive Urine Bilirubin Negative Urine Urobilinogen 4.0 e.u/dl H Ur Leukocyte Esterase Negative Urine WBC (Auto) 4 Urine RBC (Auto) 2 Ur Epithelial Cells Rare Urine Mucus Moderate Urine HCG, Qual 06/09/18 06/09/18 16:25 17:59 WBC RBC Hgb Hct MCV MCH MCHC RDW Plt Count MPV Absolute Neuts (auto) Neutrophils % Lymphocytes % Monocytes % Eosinophils % Basophils % Nucleated RBC % PT with INR INR PTT (Actin FS) VBG pH POC VBG pCO2 POC VBG pO2 Mixed VBG HCO3 Sodium Potassium Chloride Carbon Dioxide Anion Gap BUN Creatinine Creat Clearance w eGFR Random Glucose Lactic Acid Calcium Total Bilirubin AST ALT Alkaline Phosphatase Total Protein Albumin Serum , Qual Negative Urine Color Urine Appearance Urine pH Ur Specific Purchase Urine Protein Urine Glucose (UA) Urine Ketones Urine Blood Urine Nitrite Urine Bilirubin Urine Urobilinogen Ur Leukocyte Esterase Urine WBC (Auto) Urine RBC (Auto) Ur Epithelial Cells Urine Mucus Urine HCG, Qual Cancelled CXR: 2 views of the chest reveal clear lungs, large heart, normal aorta and normal nabeel. The angles are sharp and the soft tissues are intact and there are degenerative changes with wedging. Since 2016, right base is better aerated. ASSESSMENT/PLAN: 38 year old female with a PMH significant for Seizure disorder (last 2014), Opiate dependence (on methadone), depression, hypothyroidism, and obesity presented to the ED with worsening congestion, cough, fever, SOB. She was admitted for sepsis treatment with antibiotics. Sepsis secondary to URI - SIRS criteria met: (HR 91, R 22, suspected respiratory source) - Levaquin 750 mg IV x 1 (Patient reports hive reaction to ceftriaxone) - ID consult ordered, appreciate input for continue antibiotic therapy - Nebs PRN - Monitor CBC - BC pending Conjunctivitis -Tobradex Gtts OU QID x 5 days Seizure disorder -Stable, last seizure 2014 -On Topamax 50 mg BID Opiate Dependence -Methadone 40 mg qday Depression - Seroquel 100 mg QHS Hypothyroidism - Synthroid 50 mcg qday Obesity - Dietary counselling - Seroquel could be contributing FEN - PO intake adequate - Electrolytes replete as indicated - Regular diet DVT Prophylaxis -OOB, ambulation Dispo: pt currently requires further inpatient care. FULL CODE Visit type - Emergency Visit Emergency Visit: Yes ED Registration Date: 06/09/18 Care time: The patient presented to the Emergency Department on the above date and was hospitalized for further evaluation of their emergent condition. - New Patient This patient is new to me today: Yes Date on this admission: 06/09/18 - Critical Care Critical Care patient: No
[2018-06-09] MEDS ORDERED: TOPIRAMATE 25 MG TABLET (FP) PO SCH (22:00)
[2018-06-09] MEDS ORDERED: ALPRAZolam 0.25 MG TABLET PO SCH (22:00)
[2018-06-09] MEDS ORDERED: QUEtiapine FUMARATE 100 MG TABLET (FP) PO SCH (22:00)
[2018-06-09 22:51] VITALS: BP 104/62; PULSE 78; TEMP 98.2
[2018-06-10] MEDS ORDERED: TOBRA 0.3%/DEXAMETH 0.1% OPHTHALMIC SUSP 2.5 ML BTL OU SCH
[2018-06-10] MEDS ORDERED: LEVOTHYROXINE NA 50 MCG TABLET (FP) PO SCH (07:00)
[2018-06-10] MEDS ORDERED: METHADONE HCL 40 MG DISPERSABLE TABLET PO SCH ×2 (10:00)
[2018-06-10] MEDS ORDERED: predniSONE 20 MG TABLET (UD) PO SCH (10:00)
--- NOTE | 2018-06-10 11:56 | PN ---
Progress Note (short form) - Note Progress Note: cannot find patient in ER
--- NOTE | 2018-06-10 16:32 | EKG ---
Test Reason : Blood Pressure : / mmHG Vent. Rate : 090 BPM Atrial Rate : 090 BPM P-R Int : 140 ms QRS Dur : 090 ms QT Int : 358 ms P-R-T Axes : 042 000 040 degrees QTc Int : 437 ms NORMAL SINUS RHYTHM NORMAL ECG WHEN COMPARED WITH ECG OF 13-DEC-2017 21:29, NO SIGNIFICANT CHANGE WAS FOUND Confirmed by MD Manning Edward ([id number]) on 06/10/2018 4:32:19 PM Referred By: Confirmed By:Maximilian Manning MD
== END 2018-06-09 20:14 | disposition left against medical advice (07) | DRG 113 ==
LOC: JER 14:43 → JERBED 18:07
PROVIDERS: ADMIT Family Medicine; ATTEND Family Medicine
DX: J06.9 Acute upper respiratory infection, unspecified (principal); J96.01 Acute respiratory failure with hypoxia; F32.9 Major depressive disorder, single episode, unspecified; K21.9 Gastro-esophageal reflux disease without esophagitis; E03.9 Hypothyroidism, unspecified; N39.0 Urinary tract infection, site not specified; E66.9 Obesity, unspecified; Z68.35 Body mass index [BMI] 35.0-35.9, adult; H10.9 Unspecified conjunctivitis; G40.909 Epilepsy, unspecified, not intractable, without status epilepticus; F11.20 Opioid dependence, uncomplicated; F41.8 Other specified anxiety disorders; G47.00 Insomnia, unspecified; D68.51 Activated protein C resistance; Z88.0 Allergy status to penicillin; Z79.891 Long term (current) use of opiate analgesic
CPT/HCPCS: 36415; 71046-TC-FY; 80053; 81003; 81015; 82803; 83605; 84703; 85025; 85610; 85730; 87070; 87086; 87430; 87804; 93005; 93010; 99281-25

== ENCOUNTER 2018-09-28 19:12 | Emergency (ER) | payer OTHER ==
[2018-09-28 19:18] VITALS: BP 133/84; PULSE 88; TEMP 98.5; BMI 35.5
[2018-09-28] MEDS ORDERED: DEXAMETHASONE LIQUID 0.5 MG/5 ML 240 ML BULK BOTTLE PO ONE (19:35)
--- NOTE | 2018-09-28 19:36 | PDOC ---
History of Present Illness - General Chief Complaint: Respiratory Stated Complaint: SOB Time Seen by Provider: 09/28/18 19:31 - History of Present Illness Initial Comments: 09/28/18 19:35 38-year-old female with a past medical history significant for anxiety and hypothyroidism as well as seizure disorder presents for evaluation of shortness of breath 5 days. She did have a fever at the beginning of her illness but that has resolved. Past History - Past Medical History Allergies/Adverse Reactions: Allergies Allergy/AdvReac Type Severity Reaction Status Date / Time Penicillins Allergy Rash Verified 09/28/18 19:18 Sulfa (Sulfonamide Allergy Verified 09/28/18 19:18 Antibiotics) Home Medications: Ambulatory Orders Alprazolam [Xanax] 1 mg PO BID 01/05/16 Topiramate [Topamax -] 50 mg PO BID 12/13/17 Levothyroxine [Synthroid -] 50 mcg PO DAILY #30 tablet 12/16/17 Methadone [Dolophine -] 50 mg PO DAILY 12/16/17 Quetiapine Fumarate [Seroquel] 100 mg PO HS #30 tablet 12/17/17 Hydrocortisone Acetate [Hydrocortisone] 28 gm TP BID PRN #1 oint...g. 03/08/18 Albuterol Sulfate Inhaler - [Ventolin HFA Inhaler -] 1 - 2 inh PO QID #1 inhaler 06/05/18 Azithromycin [Zithromax -] 250 mg PO UTDICT #6 tab 09/28/18 Anemia: No Asthma: No Cancer: No Cardiac Disorders: Yes (MVP) COPD: No Diabetes: No GI Disorders: Yes (GERD) Disorders: No HTN: No Kidney Stones: No Psychiatric Problems: Yes (ANXIETY, INSOMNIA) Seizures: Yes (LAST SEIZURE WAS IN 2014) Thyroid Disease: Yes (HYPOTHYROIDISM) - Surgical History Abdominal Surgery: No Appendectomy: No Cardiac Surgery: No Cholecystectomy: No Lung Surgery: No Neurologic Surgery: No Orthopedic Surgery: No - Reproductive History PID: No - Immunization History Immunization Up to Date: Yes - Suicide/Smoking/Psychosocial Hx Smoking Status: No Smoking History: Never smoked Have you smoked in the past 12 months: No Number of Cigarettes Smoked Daily: 0 'Breaking Loose' booklet given: 12/13/17 Hx Alcohol Use: No Drug/Substance Use Hx: No Substance Use Type: None, Prescribed, Tranquilizers Hx Substance Use Treatment: No Review of Systems - Review of Systems Constitutional: Yes: Fever Respiratory: Yes: Cough, Shortness of Breath *Physical Exam - Vital Signs Last Vital Signs Temp Pulse Resp BP Pulse Ox 98.5 F 88 18 133/84 96 09/28/18 19:14 09/28/18 19:14 09/28/18 19:14 09/28/18 19:14 09/28/18 19:14 - Physical Exam Comments: 09/28/18 19:35 HEAD: NC/AT EYES: Conjuntiva clear Ears: Canals and TM's normal NOSE: No d/c THROAT: Moist mucous membrances, oral pharanx clear, uvula midline NECK: Supple without adenopathy CARDIAC: S1 S2 LUNGS: Diffuse wheezing and rhonchi ABDOMEN: Soft NT ND MS: Full ROM in all joints without edema NEUROLOGIC: No gross sensory or motor deficits, NVID SKIN: Normal color and temperature no lesions or rashes Moderate Sedation - Procedure Monitoring Vital Signs: Procedure Monitoring Vital Signs Temperature 98.5 F 09/28/18 19:14 Pulse Rate 88 09/28/18 19:14 Respiratory Rate 18 09/28/18 19:14 Blood Pressure 133/84 09/28/18 19:14 O2 Sat by Pulse Oximetry (%) 96 09/28/18 19:14 ED Treatment Course - RADIOLOGY Radiology Studies Ordered: Category Date Time Status CHEST PA & LAT [RAD] Stat Radiology 09/28/18 19:34 Ordered Medical Decision Making - Medical Decision Making 09/28/18 20:17 No infiltrate on CXR, R LL hazieness and retrocardial hazieness will treat 09/28/18 20:20 clear after 2ns duoned and decadron *DC/Admit/Observation/Transfer Diagnosis at time of Disposition: Bronchitis - Discharge Dispostion Disposition: HOME Condition at time of disposition: Stable Decision to Admit order: No - Referrals Referrals: Cr Briscoe MD, MD [Staff Physician] - - Patient Instructions Printed Discharge Instructions: DI for Acute Bronchitis Additional Instructions: Your being treated for bronchitis. Please take the antibiotics as directed and albuterol. Follow-up with pulmonology in one to 2 days for further evaluation and treatment options and return to the emergency room should symptoms worsen - Post Discharge Activity
[2018-09-28] MEDS ORDERED: DEXAMETHASONE SOD PHOSPHATE 10 MG/1 ML VIAL ONE (19:40)
[2018-09-28] MEDS ORDERED: ALBUTEROL SO4 2.5/IPRATROPIUM 0.5 INH SOL 3 ML VIAL.NEB. NEB ONE (19:40)
[2018-09-28] MEDS: ALBUTEROL SO4 2.5/IPRATROPIUM 0.5 INH SOL 3 ML VIAL.NEB. NEB SCH ×4 (19:52→20:24)
[2018-09-28] MEDS ORDERED: AZITHROMYCIN 500 MG TABLET PO ONE (20:25)
[2018-09-28] MEDS ORDERED: AZITHROMYCIN 500 MG TABLET ONE (20:29)
== END 2018-09-28 20:37 | disposition home or self-care (01) ==
LOC: JERFT 19:12
PROC: 3E0F7GC Introduction of Other Therapeutic Substance into Respiratory Tract, Via Natural or Artificial Opening (ICD-10-PCS; principal; 2018-09-28)
DX: J20.9 Acute bronchitis, unspecified (principal); E03.9 Hypothyroidism, unspecified; F41.9 Anxiety disorder, unspecified; K21.9 Gastro-esophageal reflux disease without esophagitis; Z86.69 Personal history of other diseases of the nervous system and sense organs; Z88.0 Allergy status to penicillin; Z88.2 Allergy status to sulfonamides
CPT/HCPCS: 71046-TC-FY; 94640; 99281-25

== ENCOUNTER 2018-10-02 18:17 | Inpatient (IN) | payer OTHER ==
[2018-10-02] MEDS ORDERED: ALBUTEROL SO4 2.5/IPRATROPIUM 0.5 INH SOL 3 ML VIAL.NEB. NEB ONE (18:41)
[2018-10-02] MEDS ORDERED: methylPREDNISolone NA SUCC 125 MG/2 ML VIAL IVPB ONE (18:41)
[2018-10-02] MEDS ORDERED: SODIUM CHLORIDE 0.9% 1000 ML INFUS.BAG IV ONE ×3 (18:41→23:09)
[2018-10-02] MEDS ORDERED: MAGNESIUM SULF 50% (8.12 MEQ/2 ML-1 GM VIAL) IVPB ONE (18:43)
[2018-10-02] MEDS ORDERED: ALBUTEROL SO4 0.083% IH SOL 2.5 MG/3 ML VIAL.NEB. NEB ONE ×3 (18:44→20:21)
--- NOTE | 2018-10-02 18:47 | PDOC ---
History of Present Illness - General History Source: Patient Exam Limitations: No Limitations - History of Present Illness Initial Comments: 10/02/18 19:40 The patient is a 38 year old female with a significant PMH of opiate abuse (on methadone 40mg daily), depression/anxiety, hypothyroidism, seizures (on topamax) , and Factor V Leyden deficiency who presents to the emergency department with worsening shortness of breath. Patient is complaining of a productive cough and shortness of breath when walking down the hallway. Patient was recently diagnosed with bronchitis and given Azithromycin. Patient is hypoxic here to the 80s, even though she had 2 nebs prior to arrival. Patient is also having conversational dyspnea here in the ER. Patient desats to 92-93 when talking and is able to talk in 4-word sentences. She is also complaining of being unable to eat or drink anything for the past few days. Patient endorses nausea and 1 episode of loose stool. She reports having URIs in the past, but no history of COPD or asthma. Patient denies any fevers chills, V/D/C, or urinary symptoms. PSH:c section Social history: On methadone. Denies any cigarette or alcohol use. Allergies: penicillin, sulfa <Sakshi Eastman - Last Filed: 10/02/18 21:00> <Isabel Tom - Last Filed: 10/03/18 00:26> - General Chief Complaint: Shortness of Breath Stated Complaint: ASTHMA Time Seen by Provider: 10/02/18 18:40 Past History <Sakshi Eastman - Last Filed: 10/02/18 21:00> - Past Medical History Anemia: No Asthma: No Cancer: No Cardiac Disorders: Yes (MVP) COPD: No Diabetes: No GI Disorders: Yes (GERD) Disorders: No HTN: No Kidney Stones: No Psychiatric Problems: Yes (ANXIETY, INSOMNIA) Seizures: Yes (LAST SEIZURE WAS IN 2014) Thyroid Disease: Yes (HYPOTHYROIDISM) - Surgical History Abdominal Surgery: No Appendectomy: No Cardiac Surgery: No Cholecystectomy: No Lung Surgery: No Neurologic Surgery: No Orthopedic Surgery: No - Reproductive History PID: No - Immunization History Immunization Up to Date: Yes - Suicide/Smoking/Psychosocial Hx Smoking Status: No Smoking History: Never smoked Have you smoked in the past 12 months: No Number of Cigarettes Smoked Daily: 0 'Breaking Loose' booklet given: 12/13/17 Hx Alcohol Use: No Drug/Substance Use Hx: No Substance Use Type: None, Prescribed, Tranquilizers Hx Substance Use Treatment: No <Isabel Tom - Last Filed: 10/03/18 00:26> - Past Medical History Allergies/Adverse Reactions: Allergies Allergy/AdvReac Type Severity Reaction Status Date / Time Penicillins Allergy Rash Verified 10/02/18 18:25 Sulfa (Sulfonamide Allergy Verified 10/02/18 18:25 Antibiotics) Home Medications: Ambulatory Orders Alprazolam [Xanax] 1 mg PO BID 01/05/16 Topiramate [Topamax -] 50 mg PO BID 12/13/17 Levothyroxine [Synthroid -] 50 mcg PO DAILY #30 tablet 12/16/17 Methadone [Dolophine -] 50 mg PO DAILY 12/16/17 Quetiapine Fumarate [Seroquel] 100 mg PO HS #30 tablet 12/17/17 Hydrocortisone Acetate [Hydrocortisone] 28 gm TP BID PRN #1 oint...g. 03/08/18 Albuterol Sulfate Inhaler - [Ventolin HFA Inhaler -] 1 - 2 inh PO QID #1 inhaler 06/05/18 Azithromycin [Zithromax -] 250 mg PO UTDICT #6 tab 09/28/18 Review of Systems - Review of Systems Able to Perform ROS?: Yes Comments:: 10/02/18 19:41 GENERAL/CONSTITUTIONAL: No fever or chills. No weakness. HEAD, EYES, EARS, NOSE AND THROAT: No change in vision. No ear pain or discharge. No sore throat. GASTROINTESTINAL: No nausea, vomiting, diarrhea or constipation. GENITOURINARY: No dysuria, frequency, or change in urination. CARDIOVASCULAR: No chest pain or shortness of breath. RESPIRATORY: No hemoptysis. (+) shortness of breath. (+) coughing. MUSCULOSKELETAL: No joint or muscle swelling or pain. No neck or back pain. SKIN: No rash NEUROLOGIC: No headache, vertigo, loss of consciousness, or change in strength/ sensation. ENDOCRINE: No increased thirst. No abnormal weight change. HEMATOLOGIC/LYMPHATIC: No anemia, easy bleeding, or history of blood clots. ALLERGIC/IMMUNOLOGIC: No hives or skin allergy. <Raiza,Sakshi - Last Filed: 10/02/18 21:00> *Physical Exam - Vital Signs Last Vital Signs Temp Pulse Resp BP Pulse Ox 98.7 F 120 H 30 H 95/61 94 L 10/02/18 18:25 10/02/18 18:40 10/02/18 18:25 10/02/18 18:25 10/02/18 18:40 - Physical Exam Comments: 10/02/18 19:41 Constitutional: Awake, alert, oriented. No acute distress. Head: Normocephalic. Atraumatic Eyes: PERRL. EOMI. Conjunctivae are not pale. ENT: Mucous membranes are moist and intact. Posterior pharynx without exudates or erythema. Uvula midline. Neck: Supple. Full ROM. No lymphadenopathy. Cardiovascular: (+) Tachycardic. Regular rhythm. S1, S2 regular. Distal pulses are 2+ and symmetric. Pulmonary/Chest: (+) Conversational distress, speaking in 4-word sentences. (+) Wheezing diffusely. (+) Tachypneic. Abdominal: Soft and non-distended. There is no tenderness. No rebound, guarding or rigidity. Musculoskeletal: No edema. No cyanosis. No clubbing. Full range of motion in all extremities. No calf swelling or tenderness. Radial/pedal pulses are intact and 2+ bilaterally Skin: Skin is warm and dry. No petechiae. No purpura. Neurological: Alert and oriented to person, place, and time. Cranial nerves II -XII are grossly intact. Normal speech. Strength is grossly symmetric. No sensory deficits. Psychiatric: Good eye contact. Normal interaction, affect and behavior. <Sakshi Eastman - Last Filed: 10/02/18 21:00> - Vital Signs Last Vital Signs Temp Pulse Resp BP Pulse Ox 98.7 F 127 H 30 H 95/61 88 L 10/02/18 18:25 10/02/18 18:25 10/02/18 18:25 10/02/18 18:25 10/02/18 18:25 <Isabel Tom - Last Filed: 10/03/18 00:26> Moderate Sedation - Procedure Monitoring Vital Signs: Procedure Monitoring Vital Signs Temperature 98.7 F 10/02/18 18:25 Pulse Rate 120 H 10/02/18 18:40 Respiratory Rate 30 H 10/02/18 18:25 Blood Pressure 95/61 10/02/18 18:25 O2 Sat by Pulse Oximetry (%) 94 L 10/02/18 18:40 <Sakshi Eastman - Last Filed: 10/02/18 21:00> - Procedure Monitoring Vital Signs: Procedure Monitoring Vital Signs Temperature 98.7 F 10/02/18 18:25 Pulse Rate 127 H 10/02/18 18:25 Respiratory Rate 30 H 10/02/18 18:25 Blood Pressure 95/61 10/02/18 18:25 O2 Sat by Pulse Oximetry (%) 88 L 10/02/18 18:25 <Isabel Tom - Last Filed: 10/03/18 00:26> Heart Score/ECG Review - ECG Intrepretation Comment:: 10/02/18 19:38 sinus tach at 128, RBBB, LAFB, st depression laterally, abnl ekg 10/02/18 21:17 repeat ekg: sinus tach at 114, RBBB, L axis, abnl ekg <Isabel Tom - Last Filed: 10/03/18 00:26> ED Treatment Course - LABORATORY CBC & Chemistry Diagram: 10/02/18 19:00 10/02/18 18:40 - ADDITIONAL ORDERS Additional order review: Laboratory Results 10/02/18 19:00 Anticoagulation Therapy No Result Required. O2 Delivery Device No Result Required. Oxygen Flow Rate No Result Required. Vent Mode No Result Required. Vent Rate No Result Required. Mechanical Rate No Result Required. Pressure Support Vent No Result Required. - Medications Given in the ED: ED Medications Discontinued Medications Generic Name Dose Route Start Last Admin Trade Name Freq PRN Reason Stop Dose Admin Albuterol Sulfate 1 amp 10/02/18 18:44 10/02/18 19:14 Ventolin 0.083% Nebulizer Soln - NEB 10/02/18 18:45 1 amp ONCE ONE Administration Albuterol/Ipratropium 1 amp 10/02/18 18:41 10/02/18 18:52 Duoneb - NEB 10/02/18 18:42 1 amp ONCE ONE Administration Aztreonam 1 gm/ Dextrose 50 mls @ 100 mls/hr 10/02/18 18:48 10/02/18 19:14 IVPB 10/02/18 19:17 100 mls/hr ONCE ONE Administration Magnesium Sulfate 1 gm 10/02/18 18:43 10/02/18 19:13 Magnesium Sulfate IVPB 10/02/18 18:44 1 gm ONCE ONE Administration Methylprednisolone Sodium Succinate 125 mg 10/02/18 18:41 10/02/18 19:13 Solu-Medrol - IVPB 10/02/18 18:42 125 mg ONCE ONE Administration Sodium Chloride 1,000 ml 10/02/18 18:41 10/02/18 19:13 Normal Saline - IV 10/02/18 18:42 1,000 ml ONCE ONE Administration Sodium Chloride 1,000 ml 10/02/18 18:45 10/02/18 19:14 Normal Saline - IV 10/02/18 18:46 1,000 ml ONCE ONE Administration <Sakshi Eastman - Last Filed: 10/02/18 21:00> - LABORATORY CBC & Chemistry Diagram: 10/02/18 19:00 10/02/18 18:40 - RADIOLOGY Radiology Studies Ordered: Category Date Time Status CHEST X-RAY PORTABLE* [RAD] Stat Radiology 10/02/18 18:41 Ordered <Isabel Tom - Last Filed: 10/03/18 00:26> Medical Decision Making - Medical Decision Making 10/02/18 20:[address] Rawls, cardiology. 10/02/18 21:[address] Rawls, awaiting call back. <Sakshi Eastman - Last Filed: 10/02/18 21:00> - Critical Care Time Total Critical Care Time (minutes): 90 Critical Care Statement: The care of this patient involved high complexity decision making to prevent further life threatening deterioration of the patient 's condition and/or to evaluate & treat vital organ system(s) failure or risk of failure. 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 Rawls team 10/02/18 20:43 case discussed with the ICU resident for admission to ICU consult placed to Dr. Briscoe 10/02/18 21:18 cxr clear concern for PE given hx of factor V, tachy, hypoxic - will send for cta chest 10/02/18 21:[address] Rawls who agrees with plan for cta, look for rv strain will discuss with pulm pending cta for poss lytics 10/02/18 22:40 case discussed with SHUTTLE OPERATOR Feliciano who accepts pt to service under Dr. winter 10/03/18 00:11 bedside echo shows mcconnells sign, R heart strain R heart strain on ct case discussed with Dr. Middleton - change heparin to lovenox, hold tpa at this time given risk of bleeding icu admit IR eval in AM 10/03/18 00:12 vss have improved, with bipap on pt pulse ox 98%, HR 106, BP stable 10/03/18 00:25 both the icu resident and NIRU Wiggins updated on the plan <Isabel Tom - Last Filed: 10/03/18 00:26> *DC/Admit/Observation/Transfer - Attestations Scribe Attestion: 10/02/18 19:43 Documentation prepared by Sakshi Eastman, acting as medical anthropology director for Isabel Tom DO. <Sakshi Eastman - Last Filed: 10/02/18 21:00> - Discharge Dispostion Decision to Admit order: Yes - Attestations Physician Attestion: 10/02/18 20:33 I, Dr. Isabel Tom, DO, attest that this document has been prepared under my direction and personally reviewed by me in its entirety. I further attest, that it accurately reflects all work, treatment, procedures and medical decision -making performed by me. <Isabel Tom - Last Filed: 10/03/18 00:26> Diagnosis at time of Disposition: Acute respiratory failure with hypoxia, Elevated troponin, Pulmonary emboli - Discharge Dispostion Condition at time of disposition: Critical
[2018-10-02] MEDS ORDERED: AZTREONAM 1 GM in DEXTROSE 5%-WATER - 50 ML IVPB ONE (18:48)
[2018-10-02] MEDS ORDERED: VANCOMYCIN 1 GM in D5W (PRE-DOCKED) 1,000 MG/250 ML IVPB ONE (18:48)
[2018-10-02] MEDS ORDERED: methylPREDNISolone NA SUCC 125 MG/2 ML VIAL ONE (18:59)
[2018-10-02] MEDS ORDERED: MAGNESIUM 1GM/D5W - 1 GM/100 ML IVPB IVPB ONE (18:59)
[2018-10-02] MEDS ORDERED: ALPRAZolam 2 MG TABLET PO ONE (19:21)
[2018-10-02] MEDS ORDERED: ACETAMINOPHEN 1000 MG/100 ML VIAL (NON FORMULARY) IVPB ONE (19:21)
[2018-10-02 19:31] LABS: BASO % 0.8 % (0-2.0); EOS % 2.8 % (0-4.5); HEMATOCRIT 40.8 % (32.4-45.2); HEMOGLOBIN 13.6 GM/dL (10.7-15.3); LYMPH % 17.7 % (8-40); MCH 27.9 pg (25.7-33.7); MCHC 33.3 g/dl (32.0-36.0); MEAN CELL VOLUME 83.8 fl (80-96); MONO % 6.3 % (3.8-10.2); NEUT % 72.4 % (42.8-82.8); PLATELET COUNT 222 K/MM3 (134-434); RBC 4.88 M/mm3 (3.60-5.2); RDW 14.8 % (11.6-15.6); WHITE BLOOD COUNT 9.7 K/mm3 (4.0-10.0)
[2018-10-02 19:49] LABS: INR 1.05 (0.83-1.09); PROTHROMBIN TIME (PATIENT) 12.4 SEC (9.7-13.0)
[2018-10-02 19:59] LABS: VENOUS PC02 44.8 mmHg (38-52); VENOUS PH 7.34 (7.32-7.42); VENOUS PO2 30.7 mmHg (28-48)
[2018-10-02 20:14] LABS: ARTERIAL BLD GAS O2 SATURATION 92.1 % (90-98.9); ARTERIAL BLOOD GAS BASE EXCESS -2.8 meq/l (-2-2); ARTERIAL BLOOD GAS PCO2 37.5 mmHg (35-45); ARTERIAL BLOOD GAS PO2 65.7 mmHg (80-100); ARTERIAL BLOOD GAS pH 7.38 (7.35-7.45)
[2018-10-02 20:15] LABS: ALLENS TEST POSITIVE
[2018-10-02] MEDS ORDERED: VANCOMYCIN 1 GRAM (PRE-DOCKED) 1,000 MG/250 ML BAG IVPB ONE (20:20)
[2018-10-02] MEDS ORDERED: ALPRAZolam 0.25 MG TABLET ONE (20:20)
[2018-10-02] MEDS ORDERED: ACETAMINOPHEN INJECTION 100 ML IVPB ONE (20:20)
[2018-10-02 20:27] LABS: ALBUMIN 3.5 g/dl (3.4-5.0); ALK PHOS 84 U/L (45-117); ANION GAP 8 MMOL/L (8-16); BILIRUBIN,TOTAL 0.2 mg/dL (0.2-1); BLOOD UREA NITROGEN 12 mg/dL (7-18); CALCIUM 8.1 mg/dL (8.5-10.1); CHLORIDE 110 mmol/L (98-107); CO2 26 mmol/L (21-32); CREATININE 1.1 mg/dL (0.55-1.3); GLUCOSE,RANDOM 89 mg/dL (74-106); MAGNESIUM 2.2 mg/dL (1.8-2.4); N-TERMINAL BNP 1539.4 pg/ml (5-125); SGOT/AST 6 U/L (15-37); SGPT/ALT 17 U/L (13-61); SODIUM 143 mmol/L (136-145)
[2018-10-02] MEDS ORDERED: ASPIRIN 81 MG CHEWABLE TABLETS PO ONE (20:29)
[2018-10-02] MEDS ORDERED: ASPIRIN 81 MG CHEWABLE TABLETS ONE (20:40)
[2018-10-02] MEDS ORDERED: HEPARIN NA (PORCINE) 5,000 UNITS/ML 1ML VIAL IVPUSH PRN ×2 (21:03)
[2018-10-02] MEDS ORDERED: HEPARIN - 25,000 UNIT in SODIUM CHLORIDE 495 ML IV SCH (21:15)
[2018-10-02] MEDS ORDERED: HEPARIN INFUSION - 25,000 UNITS/500 ML INFUS.BAG IVPB ONE (21:27)
--- NOTE | 2018-10-02 22:08 | CONSULT ---
Consult Consult Specialty:: ICU Reason for Consultation:: Acute hypoxic respiratory failure. - History of Present Illness Chief Complaint: Shortness of breath. History of Present Illness: 38 yo F with a PMHx of opiate abuse (on methadone 40mg daily), depression/ anxiety, hypothyroidism, seizures (on topamax), and Factor V Leiden deficiency who presented to the ER with worsening shortness of breath. She states for the past week she has had progressive shortness of breath and dysnea on exertion. She endorses getting short of breath with minimal exertion. She was seen here in ER two days prior diagnosed with acute bronchitis and given Z-pack. She had two albuterol treatments at home with minimal response. She then called EMS and in ER she was found to be hypoxic in 80's placed on on non- rebreather and then NIPPV. Oxygenation improved with bilevel and 2 nebs. She also mentions chills at home and her mother who she lives with has URI. Patient is also having conversational dyspnea here in the ER. Patient desats to 92-93 when talking and is able to talk in 4-word sentences. She has decreased PO intake for past two days 2/2 nausea and 1 episode of loose stool. She reports having CAP in past but no history of COPD/ Asthma. Denies palpitations, abdominal pain or fevers. ER course: 1.)EKG shows new RBBB and elevated trops. - cardiology consulted 2.)CXR shows no acute pathology or interval change from 09/28/2018 - History Source History Provided By: Patient Limitations to Obtaining History: No Limitations - Past Medical History Cardio/Vascular: Yes: Other (MVP) Pulmonary: Yes: Pneumonia ...: No ...: 1 ...Para: 1 Heme/Onc: Yes: Hypercoaguable State (factor V leiden) Psych: Yes: Addictions (opiate- on methadone.), Anxiety, Bipolar Endocrine: Yes: Hypothyroidism - Past Surgical History Past Surgical History: Yes: (2008) - Alcohol/Substance Use Hx Alcohol Use: No - Smoking History Smoking history: Never smoked Have you smoked in the past 12 months: No Aproximately how many cigarettes per day: 0 - Social History Usual Living Arrangement: With Parent ADL: Independent 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 Place of : [facility] History of Recent Travel: No Home Medications - Allergies Allergies/Adverse Reactions: Allergies Allergy/AdvReac Type Severity Reaction Status Date / Time Penicillins Allergy Rash Verified 10/02/18 18:25 Sulfa (Sulfonamide Allergy Verified 10/02/18 18:25 Antibiotics) - Home Medications Home Medications: Ambulatory Orders Alprazolam [Xanax] 2 mg PO TID 01/05/16 Topiramate [Topamax -] 50 mg PO BID 12/13/17 Levothyroxine [Synthroid -] 50 mcg PO DAILY #30 tablet 12/16/17 Methadone [Dolophine -] 50 mg PO DAILY 12/16/17 Quetiapine Fumarate [Seroquel] 100 mg PO HS #30 tablet 12/17/17 Hydrocortisone Acetate [Hydrocortisone] 28 gm TP BID PRN #1 oint...g. 03/08/18 Albuterol Sulfate Inhaler - [Ventolin HFA Inhaler -] 1 - 2 inh PO QID #1 inhaler 06/05/18 Azithromycin [Zithromax -] 250 mg PO UTDICT #6 tab 09/28/18 Family Disease History - Family Disease History Family Disease History: Diabetes: Mother (factor v leiden), Heart Disease: Mother, CA: Father (colon ca. ), Other: Mother, Daughter (factor v leiden) Review of Systems - Review of Systems Constitutional: reports: Chills, Lethargy, Loss of Appetite, Weakness Eyes: reports: No Symptoms HENT: reports: No Symptoms Neck: reports: No Symptoms Cardiovascular: reports: Edema, Shortness of Breath Respiratory: reports: Cough, SOB on Exertion Gastrointestinal: reports: Nausea. denies: Vomiting Genitourinary: reports: No Symptoms Musculoskeletal: reports: No Symptoms Psychiatric: reports: Anxiety Physical Exam Vital Signs: Vital Signs Temperature 98.7 F 10/02/18 18:25 Pulse Rate 113 H 10/02/18 20:34 Respiratory Rate 16 10/02/18 20:34 Blood Pressure 103/69 10/02/18 20:34 O2 Sat by Pulse Oximetry (%) 96 10/02/18 20:34 Constitutional: Yes: Anxious, Mild Distress Eyes: Yes: Conjunctiva Clear, EOM Intact HENT: Yes: Atraumatic, Normocephalic Neck: Yes: Supple, Trachea Midline Cardiovascular: Yes: Tachycardia, S1, S2. No: JVD, Gallop, Rub Respiratory: Yes: Cough Gastrointestinal: Yes: Normal Bowel Sounds, Soft, Abdomen, Obese Breast(s): No: Dimpling, Discharge from Nipple, Nipple Inversion, Skin Changes Extremities: No: Calf Tenderness, Cold, Cyanosis, Deformity Edema: Yes Edema: LLE: Trace, RLE: Trace Peripheral Pulses WNL: Yes Neurological: Yes: Alert, Oriented, Cran Nerves II-XII Intact Psychiatric: Yes: Alert, Oriented Labs: CBC, BMP 10/02/18 19:00 10/02/18 18:40 Imaging - Results Chest X-ray: Report Reviewed, Image Reviewed (No acute pathology or interval change.) Ultrasound: Report Reviewed (DVT mid and distal right femoral vein and right popliteal vein.), Image Reviewed EKG: Report Reviewed, Image Reviewed (sinus tach rate 128, left axis dev., new RBBB, no st or t wave abnormalities.) Assessment/Plan A:38 yo F with a PMHx of opiate abuse (on methadone 40mg daily), depression/ anxiety, hypothyroidism, seizures (on topamax), and Factor V Leiden deficiency who presented to the ER with worsening shortness of breath admitted to ICU for acute hypoxic respiratory failure 2/2 submassive Pulmonary embolism. PLAN: NEURO: * Awake and alert. * H/O Epilepsy- continue Topimax. * continue Xanax 2mg PO for anxiety. * History of methodone use - cont. 40mg PO daily. * neuro checks Q4h to assess for AMS. * She has history of bipolar but not taking meds at home. PULM: * Acute hypoxic respiratory failure 2/2 sub-massive PE seen on CTA with R heart strain * Cont. NIPPV settings of 10/5 100% * started on Lovenox 1mg/kg * maintain SpO2 >90% * given Mg and 125 solumedrol in ER * BD TX PRN * repeat ABG in AM CV: * Sinus tach on monitor * EKG shows new RBBB and trops elevated(most likely demand 2/2 PE). * ASA in ER * BNP 1539.4 - no h/o CHF - echo pending. * Will start Lovenox 1mg/kg for PE. * Cardiology consulted. * maintain MAP >65 ID: * Infectious w/u pending. * recieved vanco and aztreonam in ER ( Pen and sulfra allergy) * ID consult. * CXR shows no acute pathology. * UA unremarkable. * blood and urine cultures pending * consider Urine PNA antigen * Influenza and RSV screening. ENDO: * Hypothyroid.- cont. Levothyroxin 50mcg daily * TSH wnl. GI: * regular diet. * Zofran for nausea * ranititdine for GERD. FEN: * NS @ 125ml/hr * e-lytes wnl will monitor and replete PRN * regular diet. DISPO: continue ICU level of care. FULL CODE>
[2018-10-02 22:58] LABS: CARBOXYHEMOGLOBIN 0.3 gm% (0.5-2.0)
--- NOTE | 2018-10-02 23:48 | HP ---
Admitting History and Physical - Primary Care Physician PCP: José Miguel Peter - Admission Chief Complaint: SOB History of Present Illness: This is a 38 y/o woman with a PMHx of Seizure Disorder, Opiate Dependence (on Methadone), Depression, Hypothyroidism, MVP, Factor V Leiden Deficiency, Severe Obesity. Who presents to the ED with cough and worsening SOB x 3 days. Patient was seen and treated in [facility] 4 days ago for Bronchitis given Azithromycin with no improvement. Patient reports nausea, vomiting and diarrhea x 1 episode. Patient denies fever, dizziness, SNEED, CP, AP, constipation, dysuria. Patient reports URIs in the past. Denies recent travel In the ED the patient was hypoxic- 80s, after receiving 2 nebs prior to arrival. Patient could only speak in four word sentences with, Spo2 92-93%. ER course was notable for: (1) CTA- extensive pulmonary emboli in main pulmonary artery (2) Troponin 1.28 (3) EKG- RBBB (4) BNP- 1539 History Source: Patient, Medical Record Limitations to Obtaining History: No Limitations - Past Medical History Cardiovascular: Yes: Other (MVP) Pulmonary: Yes: Pneumonia ...LMP: 12/06/17 ...: No ...: 1 ...Para: 1 Heme/Onc: Yes: Hypercoaguable State (factor V leiden) Psych: Yes: Addictions (opiate- on methadone.), Anxiety, Bipolar, Depression Endocrine: Yes: Hypothyroidism - Past Surgical History Past Surgical History: Yes: (2008) - Smoking History Smoking history: Never smoked Have you smoked in the past 12 months: No Aproximately how many cigarettes per day: 0 - Alcohol/Substance Use Hx Alcohol Use: No History of Substance Use: reports: Prescription (on Methadone) - Social History ADL: Independent 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 History of Recent Travel: No Home Medications - Allergies Allergies/Adverse Reactions: Allergies Allergy/AdvReac Type Severity Reaction Status Date / Time Penicillins Allergy Rash Verified 10/02/18 18:25 Sulfa (Sulfonamide Allergy Verified 10/02/18 18:25 Antibiotics) - Home Medications Home Medications: Ambulatory Orders Alprazolam [Xanax] 1 mg PO BID 01/05/16 Topiramate [Topamax -] 50 mg PO BID 12/13/17 Levothyroxine [Synthroid -] 50 mcg PO DAILY #30 tablet 12/16/17 Methadone [Dolophine -] 50 mg PO DAILY 12/16/17 Quetiapine Fumarate [Seroquel] 100 mg PO HS #30 tablet 12/17/17 Hydrocortisone Acetate [Hydrocortisone] 28 gm TP BID PRN #1 oint...g. 03/08/18 Albuterol Sulfate Inhaler - [Ventolin HFA Inhaler -] 1 - 2 inh PO QID #1 inhaler 06/05/18 Azithromycin [Zithromax -] 250 mg PO UTDICT #6 tab 09/28/18 Family Disease History - Family Disease History Family Disease History: Diabetes: Mother (factor v leiden), Heart Disease: Mother, CA: Father (colon ca. ), Other: Mother, Daughter (factor v leiden) Review of Systems - Review of Systems Constitutional: reports: Loss of Appetite Eyes: reports: No Symptoms HENT: reports: No Symptoms Neck: reports: No Symptoms Cardiovascular: reports: Shortness of Breath Respiratory: reports: Cough, SOB, SOB on Exertion, Wheezing Gastrointestinal: reports: Diarrhea, Nausea, Vomiting Genitourinary: reports: No Symptoms Breasts: reports: No Symptoms Reported Musculoskeletal: reports: No Symptoms Integumentary: reports: No Symptoms Neurological: reports: No Symptoms Endocrine: reports: No Symptoms Hematology/Lymphatic: reports: No Symptoms Psychiatric: reports: No Symptoms Physical Examination Vital Signs: Vital Signs Temperature 98.7 F 10/02/18 18:25 Pulse Rate 106 H 10/02/18 23:11 Respiratory Rate 22 H 10/02/18 23:11 Blood Pressure 100/65 10/02/18 23:11 O2 Sat by Pulse Oximetry (%) 98 10/02/18 23:11 Constitutional: Yes: No Distress, Calm, Obese Eyes: Yes: WNL, Conjunctiva Clear, EOM Intact, PERRL HENT: Yes: WNL, Atraumatic, Normocephalic Neck: Yes: WNL, Supple, Trachea Midline Cardiovascular: Yes: Tachycardia, S1, S2 Respiratory: Yes: Diminished (bases), On BiPap, SOB, SOB on Exertion Gastrointestinal: Yes: Normal Bowel Sounds, Soft, Abdomen, Obese ...Rectal Exam: Yes: Deferred Renal/: Yes: WNL Breast(s): Yes: WNL Musculoskeletal: Yes: WNL Extremities: Yes: WNL Edema: No Peripheral Pulses WNL: Yes Neurological: Yes: WNL, Alert, Oriented, Cran Nerves II-XII Intact ...Motor Strength: WNL Psychiatric: Yes: WNL, Alert, Oriented Labs: CBC, BMP 10/02/18 19:00 10/02/18 18:40 Laboratory Results - last 24 hr 10/02/18 10/02/18 10/02/18 18:40 18:40 18:41 WBC RBC Hgb Hct MCV MCH MCHC RDW Plt Count MPV Absolute Neuts (auto) Neutrophils % Lymphocytes % Monocytes % Eosinophils % Basophils % Nucleated RBC % PT with INR 12.40 INR 1.05 PTT (Actin FS) Anticoagulation Therapy Puncture Site ABG pH ABG pCO2 at Pt Temp ABG pO2 at Pt Temp ABG HCO3 ABG O2 Sat (Measured) ABG O2 Content ABG Base Excess Ld Test VBG pH POC VBG pCO2 POC VBG pO2 VBG HCO3 VBG O2 Sat (Trisha) VBG Base Excess Carboxyhemoglobin Methemoglobin O2 Delivery Device Oxygen Flow Rate Vent Mode Vent Rate Mechanical Rate Pressure Support Vent Sodium 143 Potassium 4.0 Chloride 110 H Carbon Dioxide 26 Anion Gap 8 BUN 12 Creatinine 1.1 Creat Clearance w eGFR 55.89 Random Glucose 89 Lactic Acid 1.4 Calcium 8.1 L Magnesium 2.2 Total Bilirubin 0.2 AST 6 L ALT 17 Alkaline Phosphatase 84 Creatine Kinase 89 Troponin I 1.28 H* B-Natriuretic Peptide 1539.4 H Total Protein 7.0 Albumin 3.5 TSH 1.15 Serum , Qual Urine Color Urine Appearance Urine pH Ur Specific [place] Urine Protein Urine Glucose (UA) Urine Ketones Urine Blood Urine Nitrite Urine Bilirubin Urine Urobilinogen Ur Leukocyte Esterase Urine WBC (Auto) Urine RBC (Auto) Ur Epithelial Cells Urine Mucus 10/02/18 10/02/18 10/02/18 18:41 19:00 19:00 WBC 9.7 RBC 4.88 Hgb 13.6 Hct 40.8 MCV 83.8 MCH 27.9 MCHC 33.3 RDW 14.8 Plt Count 222 D MPV 8.0 Absolute Neuts (auto) 7.0 Neutrophils % 72.4 Lymphocytes % 17.7 Monocytes % 6.3 Eosinophils % 2.8 Basophils % 0.8 Nucleated RBC % 0 PT with INR INR PTT (Actin FS) Anticoagulation Therapy No Result Required. Puncture Site Right radial ABG pH 7.38 ABG pCO2 at Pt Temp 37.5 D ABG pO2 at Pt Temp 65.7 L D ABG HCO3 21.4 L ABG O2 Sat (Measured) 92.1 ABG O2 Content 17.0 ABG Base Excess -2.8 L Ld Test Positive VBG pH POC VBG pCO2 POC VBG pO2 VBG HCO3 VBG O2 Sat (Trisha) VBG Base Excess Carboxyhemoglobin Methemoglobin O2 Delivery Device Nasal Oxygen Flow Rate 7l Vent Mode No Result Required. Vent Rate No Result Required. Mechanical Rate No Result Required. Pressure Support Vent No Result Required. Sodium Potassium Chloride Carbon Dioxide Anion Gap BUN Creatinine Creat Clearance w eGFR Random Glucose Lactic Acid Calcium Magnesium Total Bilirubin AST ALT Alkaline Phosphatase Creatine Kinase Troponin I B-Natriuretic Peptide Total Protein Albumin TSH Serum , Qual Negative Urine Color Urine Appearance Urine pH Ur Specific [place] Urine Protein Urine Glucose (UA) Urine Ketones Urine Blood Urine Nitrite Urine Bilirubin Urine Urobilinogen Ur Leukocyte Esterase Urine WBC (Auto) Urine RBC (Auto) Ur Epithelial Cells Urine Mucus 10/02/18 10/02/18 10/02/18 19:00 22:20 22:20 WBC RBC Hgb Hct MCV MCH MCHC RDW Plt Count MPV Absolute Neuts (auto) Neutrophils % Lymphocytes % Monocytes % Eosinophils % Basophils % Nucleated RBC % PT with INR INR PTT (Actin FS) 31.2 Anticoagulation Therapy Puncture Site ABG pH ABG pCO2 at Pt Temp ABG pO2 at Pt Temp ABG HCO3 ABG O2 Sat (Measured) ABG O2 Content ABG Base Excess Ld Test VBG pH 7.34 POC VBG pCO2 44.8 POC VBG pO2 30.7 D VBG HCO3 23.7 L* VBG O2 Sat (Trisha) 53.2 H* VBG Base Excess -1.7 Carboxyhemoglobin 0.3 L Methemoglobin 0.3 L O2 Delivery Device Oxygen Flow Rate Vent Mode Vent Rate Mechanical Rate Pressure Support Vent Sodium Potassium Chloride Carbon Dioxide Anion Gap BUN Creatinine Creat Clearance w eGFR Random Glucose Lactic Acid Calcium Magnesium Total Bilirubin AST ALT Alkaline Phosphatase Creatine Kinase Troponin I B-Natriuretic Peptide Total Protein Albumin TSH Serum , Qual Urine Color Urine Appearance Urine pH Ur Specific [place] Urine Protein Urine Glucose (UA) Urine Ketones Urine Blood Urine Nitrite Urine Bilirubin Urine Urobilinogen Ur Leukocyte Esterase Urine WBC (Auto) Urine RBC (Auto) Ur Epithelial Cells Urine Mucus 10/03/18 01:00 WBC RBC Hgb Hct MCV MCH MCHC RDW Plt Count MPV Absolute Neuts (auto) Neutrophils % Lymphocytes % Monocytes % Eosinophils % Basophils % Nucleated RBC % PT with INR INR PTT (Actin FS) Anticoagulation Therapy Puncture Site ABG pH ABG pCO2 at Pt Temp ABG pO2 at Pt Temp ABG HCO3 ABG O2 Sat (Measured) ABG O2 Content ABG Base Excess Ld Test VBG pH POC VBG pCO2 POC VBG pO2 VBG HCO3 VBG O2 Sat (Trisha) VBG Base Excess Carboxyhemoglobin Methemoglobin O2 Delivery Device Oxygen Flow Rate Vent Mode Vent Rate Mechanical Rate Pressure Support Vent Sodium Potassium Chloride Carbon Dioxide Anion Gap BUN Creatinine Creat Clearance w eGFR Random Glucose Lactic Acid Calcium Magnesium Total Bilirubin AST ALT Alkaline Phosphatase Creatine Kinase Troponin I B-Natriuretic Peptide Total Protein Albumin TSH Serum , Qual Urine Color Straw Urine Appearance Clear Urine pH 5.0 Ur Specific [place] 1.048 H Urine Protein Negative Urine Glucose (UA) Negative Urine Ketones Negative Urine Blood 1+ H Urine Nitrite Negative Urine Bilirubin Negative Urine Urobilinogen Negative Ur Leukocyte Esterase Negative Urine WBC (Auto) 1 Urine RBC (Auto) <1 Ur Epithelial Cells Rare Urine Mucus Rare Intake & Output 09/30/18 10/01/18 10/02/18 10/03/18 23:59 23:59 23:59 23:59 Intake Total 20 Balance 20 Weight 113.398 kg 123.695 kg Imaging - Results Chest X-ray: Report Reviewed, Image Reviewed Cat Scan: Report Reviewed, Image Reviewed Ultrasound: Pending EKG: Image Reviewed Assessment/Plan This is a 38 y/o woman with a PMHx of: Seizure Disorder, Opiate Dependence (on Methadone), MVP, Factor V Leiden Deficiency, Hypothyroidism, Depression, Severe Obesity. Admitted to ICU for PE, Acute Respiratory Failure, Hypoxia, Hypercapnia , Elevated Troponin for further evaluation of their emergent condition. Plan: Admit to ICU 1. Pulm: Acute Respiratory Failure, Hypoxia, Hypercapnia likely secondary to PE vs ?Atypical PNA vs Failed Outpatient Therapy Wells Score 4.5 PERC Rule 2 criteria Hypoxia- 80's on RA, 92-93% on Oxygen CTA read by salesperson [employer] radiology- extensive pulmonary emboli, main pulmonary artery proximal and distal branches bilaterally subsegmental consolidation/ atelectasis superior segment R>L lobe atelectatic changes vs infiltrates in AGUS , Right heart strain Heparin Gtt d/c, Lovenox given Chest Xray- no significant interval change or acute pulmonary disease Placed on BIPAP in ED AB.38/37.5/65.7/21.4 BNP 1539 Aztreonam and Vancomycin given in ED, will continue Appreciate Pulm Consult Appreciate ID Consult Monitor vitals Aspiration Precautions 2. Card: Elevated Troponin, Tachycardia, MVP Likely secondary to PE Continue cardiac monitoring Patient denies CP, palpitations Troponin 1.28 EKG- Serial Enzymes Appreciate Cardiology Consult- aware, notified by ED attending Heparin Gtt started in ED d/cd secondary to PE diagnosis Lovenox initiated per Cardiology recommendations per ED attending Echo CMP, Mg, Phos, Lipid Panel in am 3. Neuro: Seizure Disorder stable Continue Topamax Seizure Precautions Neuro checks 4. Endocrine: Hypothyroidism Continue Synthyroid TSH in am 5. Psych: Depression, Anxiety Continue Seroquel, Ativan Monitor EKG for Prolonged QT 6. Opiate Dependence: Continue Methadone FEN Replete lytes prn NPO DVT ppx OOB SCDs Continue Lovenox (PE) Code Status: Full Code Dispo: Requires Inpatient Care Visit type - Emergency Visit Emergency Visit: Yes ED Registration Date: 10/02/18 Care time: The patient presented to the Emergency Department on the above date and was hospitalized for further evaluation of their emergent condition. - New Patient This patient is new to me today: Yes Date on this admission: 10/03/18 - Critical Care Critical Care patient: Yes Total Critical Care Time (in minutes): 35 Critical Care Statement: The care of this patient involved high complexity decision making to prevent further life threatening deterioration of the patient 's condition and/or to evaluate & treat vital organ system(s) failure or risk of failure.
[2018-10-03] MEDS ORDERED: ENOXAPARIN NA (PORCINE) 100 MG/1 ML DISP.SYRIN SQ ONE (00:12)
[2018-10-03] MEDS ORDERED: ENOXAPARIN NA (PORCINE) 30 MG/0.3 ML DISP.SYRIN SQ ONE (00:14)
[2018-10-03] MEDS ORDERED: ENOXAPARIN NA (PORCINE) 120 MG/0.8 ML DISP.SYRIN SQ ONE (00:15)
[2018-10-03] MEDS ORDERED: ENOXAPARIN NA (PORCINE) 120 MG/0.8 ML DISP.SYRIN SQ SCH (00:15)
[2018-10-03] MEDS ORDERED: ALBUTEROL SO4 8 GM HFA INHALER IH PRN (01:08)
[2018-10-03] MEDS: ALPRAZolam 2 MG TABLET PO SCH ×2 (01:33→10:45)
[2018-10-03] MEDS: TOPIRAMATE 25 MG TABLET (FP) PO SCH ×2 (01:42→10:30)
[2018-10-03 01:53] LABS: URINE APPEARANCE CLEAR; URINE BILIRUBIN NEGATIVE (<2.0 mg/dL); URINE COLOR STRAW; URINE GLUCOSE (UA) NEGATIVE (NEGATIVE); URINE KETONE NEGATIVE (NEGATIVE); URINE LEUK ESTERASE NEGATIVE (NEGATIVE); URINE NITRITE NEGATIVE (NEGATIVE); URINE PROTEIN NEGATIVE (NEGATIVE); URINE UROBILINOGEN NEGATIVE mg/dL (0.2-1.0)
[2018-10-03 02:05] LABS: EPI CELLS RARE /HPF (FEW); URINE MUCUS RARE
[2018-10-03] MEDS: LEVOTHYROXINE NA 50 MCG TABLET (FP) PO SCH (06:39)
--- NOTE | 2018-10-03 07:58 | PN ---
Physical Exam: SUBJECTIVE: Patient seen and examined Patient seen and examined by me. Patient was on bipap and states she is mildly SOB. Denies fever, chills, chest pain, and hempotysis. will be sent to IR for thrombectomy. OBJECTIVE: Vital Signs Period Temp Pulse Resp BP Sys/Humphries Pulse Ox Last 24 Hr 97 F-98.7 F 80-127 14-30 95-118/60-78 88-99 GENERAL: The patient is awake, alert, and fully oriented, in no acute distress. HEAD: Normal with no signs of trauma. EYES: PERRL, extraocular movements intact, sclera anicteric, conjunctiva clear. No ptosis. ENT: Ears normal, nares patent, oropharynx clear without exudates, moist mucous membranes. NECK: Trachea midline, full range of motion, supple. LUNGS: Breath sounds equal, clear to auscultation bilaterally, no wheezes, no crackles, no accessory muscle use. HEART: Regular rate and rhythm, S1, S2 without murmur, rub or gallop. ABDOMEN: Soft, nontender, nondistended, normoactive bowel sounds, no guarding, no rebound, no hepatosplenomegaly, no masses. EXTREMITIES: 2+ pulses, warm, well-perfused, edema R>L. NEUROLOGICAL: Cranial nerves II through XII grossly intact. Normal speech, gait not observed. PSYCH: Normal mood, normal affect. SKIN: Warm, dry, normal turgor, no rashes or lesions noted Laboratory Results - last 24 hr 10/02/18 10/02/18 10/02/18 18:40 18:40 18:41 WBC RBC Hgb Hct MCV MCH MCHC RDW Plt Count MPV Absolute Neuts (auto) Neutrophils % Lymphocytes % Monocytes % Eosinophils % Basophils % Nucleated RBC % PT with INR 12.40 INR 1.05 PTT (Actin FS) Anticoagulation Therapy Puncture Site ABG pH ABG pCO2 at Pt Temp ABG pO2 at Pt Temp ABG HCO3 ABG O2 Sat (Measured) ABG O2 Content ABG Base Excess Ld Test VBG pH POC VBG pCO2 POC VBG pO2 VBG HCO3 VBG O2 Sat (Trisha) VBG Base Excess Carboxyhemoglobin Methemoglobin O2 Delivery Device Oxygen Flow Rate Vent Mode Vent Rate Mechanical Rate Pressure Support Vent Sodium 143 Potassium 4.0 Chloride 110 H Carbon Dioxide 26 Anion Gap 8 BUN 12 Creatinine 1.1 Creat Clearance w eGFR 55.89 Random Glucose 89 Lactic Acid 1.4 Calcium 8.1 L Magnesium 2.2 Total Bilirubin 0.2 AST 6 L ALT 17 Alkaline Phosphatase 84 Creatine Kinase 89 Troponin I 1.28 H* B-Natriuretic Peptide 1539.4 H Total Protein 7.0 Albumin 3.5 TSH 1.15 Serum , Qual Urine Color Urine Appearance Urine pH Ur Specific [place] Urine Protein Urine Glucose (UA) Urine Ketones Urine Blood Urine Nitrite Urine Bilirubin Urine Urobilinogen Ur Leukocyte Esterase Urine WBC (Auto) Urine RBC (Auto) Ur Epithelial Cells Urine Mucus 10/02/18 10/02/18 10/02/18 18:41 19:00 19:00 WBC 9.7 RBC 4.88 Hgb 13.6 Hct 40.8 MCV 83.8 MCH 27.9 MCHC 33.3 RDW 14.8 Plt Count 222 D MPV 8.0 Absolute Neuts (auto) 7.0 Neutrophils % 72.4 Lymphocytes % 17.7 Monocytes % 6.3 Eosinophils % 2.8 Basophils % 0.8 Nucleated RBC % 0 PT with INR INR PTT (Actin FS) Anticoagulation Therapy No Result Required. Puncture Site Right radial ABG pH 7.38 ABG pCO2 at Pt Temp 37.5 D ABG pO2 at Pt Temp 65.7 L D ABG HCO3 21.4 L ABG O2 Sat (Measured) 92.1 ABG O2 Content 17.0 ABG Base Excess -2.8 L Ld Test Positive VBG pH POC VBG pCO2 POC VBG pO2 VBG HCO3 VBG O2 Sat (Trisha) VBG Base Excess Carboxyhemoglobin Methemoglobin O2 Delivery Device Nasal Oxygen Flow Rate 7l Vent Mode No Result Required. Vent Rate No Result Required. Mechanical Rate No Result Required. Pressure Support Vent No Result Required. Sodium Potassium Chloride Carbon Dioxide Anion Gap BUN Creatinine Creat Clearance w eGFR Random Glucose Lactic Acid Calcium Magnesium Total Bilirubin AST ALT Alkaline Phosphatase Creatine Kinase Troponin I B-Natriuretic Peptide Total Protein Albumin TSH Serum , Qual Negative Urine Color Urine Appearance Urine pH Ur Specific [place] Urine Protein Urine Glucose (UA) Urine Ketones Urine Blood Urine Nitrite Urine Bilirubin Urine Urobilinogen Ur Leukocyte Esterase Urine WBC (Auto) Urine RBC (Auto) Ur Epithelial Cells Urine Mucus 10/02/18 10/02/18 10/02/18 19:00 22:20 22:20 WBC RBC Hgb Hct MCV MCH MCHC RDW Plt Count MPV Absolute Neuts (auto) Neutrophils % Lymphocytes % Monocytes % Eosinophils % Basophils % Nucleated RBC % PT with INR INR PTT (Actin FS) 31.2 Anticoagulation Therapy Puncture Site ABG pH ABG pCO2 at Pt Temp ABG pO2 at Pt Temp ABG HCO3 ABG O2 Sat (Measured) ABG O2 Content ABG Base Excess Ld Test VBG pH 7.34 POC VBG pCO2 44.8 POC VBG pO2 30.7 D VBG HCO3 23.7 L* VBG O2 Sat (Trisha) 53.2 H* VBG Base Excess -1.7 Carboxyhemoglobin 0.3 L Methemoglobin 0.3 L O2 Delivery Device Oxygen Flow Rate Vent Mode Vent Rate Mechanical Rate Pressure Support Vent Sodium Potassium Chloride Carbon Dioxide Anion Gap BUN Creatinine Creat Clearance w eGFR Random Glucose Lactic Acid Calcium Magnesium Total Bilirubin AST ALT Alkaline Phosphatase Creatine Kinase Troponin I B-Natriuretic Peptide Total Protein Albumin TSH Serum , Qual Urine Color Urine Appearance Urine pH Ur Specific [place] Urine Protein Urine Glucose (UA) Urine Ketones Urine Blood Urine Nitrite Urine Bilirubin Urine Urobilinogen Ur Leukocyte Esterase Urine WBC (Auto) Urine RBC (Auto) Ur Epithelial Cells Urine Mucus 10/03/18 01:00 WBC RBC Hgb Hct MCV MCH MCHC RDW Plt Count MPV Absolute Neuts (auto) Neutrophils % Lymphocytes % Monocytes % Eosinophils % Basophils % Nucleated RBC % PT with INR INR PTT (Actin FS) Anticoagulation Therapy Puncture Site ABG pH ABG pCO2 at Pt Temp ABG pO2 at Pt Temp ABG HCO3 ABG O2 Sat (Measured) ABG O2 Content ABG Base Excess Ld Test VBG pH POC VBG pCO2 POC VBG pO2 VBG HCO3 VBG O2 Sat (Trisha) VBG Base Excess Carboxyhemoglobin Methemoglobin O2 Delivery Device Oxygen Flow Rate Vent Mode Vent Rate Mechanical Rate Pressure Support Vent Sodium Potassium Chloride Carbon Dioxide Anion Gap BUN Creatinine Creat Clearance w eGFR Random Glucose Lactic Acid Calcium Magnesium Total Bilirubin AST ALT Alkaline Phosphatase Creatine Kinase Troponin I B-Natriuretic Peptide Total Protein Albumin TSH Serum , Qual Urine Color Straw Urine Appearance Clear Urine pH 5.0 Ur Specific [place] 1.048 H Urine Protein Negative Urine Glucose (UA) Negative Urine Ketones Negative Urine Blood 1+ H Urine Nitrite Negative Urine Bilirubin Negative Urine Urobilinogen Negative Ur Leukocyte Esterase Negative Urine WBC (Auto) 1 Urine RBC (Auto) <1 Ur Epithelial Cells Rare Urine Mucus Rare Active Medications Generic Name Dose Route Start Last Admin Trade Name Freq PRN Reason Stop Dose Admin Albuterol Sulfate 2 puff 10/03/18 01:08 Ventolin Hfa Inhaler - IH Q6H PRN SHORT OF BREATH/WHEEZING Alprazolam 1 mg 10/03/18 01:15 10/03/18 01:33 Xanax - PO 1 mg BID SUSIE Administration Chlorhexidine Gluconate 1 applic 10/03/18 22:00 Hibiclens For Decolonization - TP HS SUSIE Enoxaparin Sodium 120 mg 10/03/18 12:00 Lovenox - SQ BID SUSIE Levothyroxine Sodium 50 mcg 10/03/18 07:00 10/03/18 06:39 Synthroid - PO 50 mcg DAILY@0700 SUSIE Administration Methadone HCl 40 mg 10/03/18 10:00 Dolophine - PO DAILY SUSIE Mupirocin 1 applic 10/03/18 10:00 Bactroban Ointment (For Decolonization) - NS 10/08/18 09:59 BID SUSIE Topiramate 50 mg 10/03/18 01:15 10/03/18 01:42 Topamax - PO 50 mg BID SUSIE Administration ASSESSMENT/PLAN: 38 yo F with a PMHx of opiate abuse (on methadone 40mg daily), depression/ anxiety, hypothyroidism, seizures (on topamax), and Factor V Leiden deficiency who presented to the ER with worsening shortness of breath after being seen in the emergency department on 09/28/2018 and susbequently given an antibiotic course for suspected bronchitis was found to have bilateral pulmonary embolism in the main pulmonary arteries bilaterally without saddle embolus with new RBBB new from her previous EKG and elevated troponins admitted to the ICU for further management of acute PE PLAN: Pulm: Acute hypoxic respiratory failure 2/2 acute PE in the main pulmonary artery, proximal, and distal branches bilaterally without saddle embolus without hemodynamic instability with Holly sign seen on US. ABG initially was 7.38 pH, 37.5 CO2, 65.7 O2 on NC 7 L. Will repeat ABG today IR aware of the case; arrangements made for mechanical thrombectomy and catheter directed tPA. Risks and benefit was discussed with the patient. Currently on bipap; 10/ 100% FiO2 with 97% SpO2 Hx of Factor V Leiden; first dx 2008 due to ; not on AC -Currently on Lovenox 1 mg/kg -BD TX PRN -Repeat ABG -ECHO shows right heart strain; will go to IR for thrombectomy -On nasal canula 4l CV: On presentation, new onset of RBBB with elevated troponin of 1.28 Cardiology consulted and following Aspirin given in the ED BNP 1539 with Holly sign; likely not secondary to CHF with pending stat echo this morning. Delay to 8am due to staffing issues with cardiology US this AM -Continue cardiac monitoring -Continue maintaining MAP -Echo shows right heart strain NEURO: Currently awake and alert. Oriented x3. Hx of epilepsy on topimax; continue topimax Hx of depression and anxiety; continue xanax 2 mg PO for anxiety Hx of polysubstance abuse; currently on methadone 40 mg PO daily -Neuro checks q4hr to assess for AMS ID: Infectious w/u pending Received vancomycin and aztrenoam in the ED CTA of chest shows subsegmental consolidation/atelectasis in superior segment of right and less extent superior segment of the left lower lobe. Blood and urine cx pending Strep pneumonia antigen done - pending. ENDO: Hypothyroidism -Continue levothyroxin GI: Regular diet Zofran for nausea Ranitidine for GERD FEN: NS at 125 mL/hr electrolytes wnl, replete PRN DISPO: continue ICU level of care. FULL CODE> Visit type - Emergency Visit Emergency Visit: Yes ED Registration Date: 10/02/18 Care time: The patient presented to the Emergency Department on the above date and was hospitalized for further evaluation of their emergent condition. - New Patient This patient is new to me today: No - Critical Care Critical Care patient: Yes Total Critical Care Time (in minutes): 36 Critical Care Statement: The care of this patient involved high complexity decision making to prevent further life threatening deterioration of the patient 's condition and/or to evaluate & treat vital organ system(s) failure or risk of failure. - Discharge Referral Referred to [facility] No
[2018-10-03 09:55] LABS: ARTERIAL BLD GAS O2 SATURATION 99.5 % (90-98.9); ARTERIAL BLOOD GAS BASE EXCESS -4.2 meq/l (-2-2); ARTERIAL BLOOD GAS PCO2 35.5 mmHg (35-45); ARTERIAL BLOOD GAS pH 7.37 (7.35-7.45)
[2018-10-03 09:57] LABS: ALLENS TEST POSITIVE
[2018-10-03] MEDS ORDERED: ALBUTEROL SO4 8 GM HFA INHALER IH SCH (10:00)
--- NOTE | 2018-10-03 10:12 | ECHO ---
Name: WENDY PLASCENCIA Exam:Adult Echocardiogram Study Date: 10/03/2018 08:25 AM Age: 38 yrs Reason For Study: Pericardial Effusion Height: 66 in Weight: 272 lb BSA: 2.3 m2 MMode/2D Measurements & Calculations IVSd: 0.92 cm Ao root diam: 2.5 cm LVIDd: 4.2 cm LA dimension: 3.0 cm LVIDs: 2.9 cm LVPWd: 1.0 cm LVPWs: 1.2 cm EDV(Teich): 76.7 ml ESV(Teich): 33.5 ml LVOT diam: 2.1 cm TAPSE: 1.4 cm RV S Rodo: 8.8 cm/sec Doppler Measurements & Calculations MV E max rodo: 61.6 cm/sec Ao V2 max: 91.0 cm/sec MV A max rodo: 62.1 cm/sec Ao max P.3 mmHg MV E/A: 0.99 Ao V2 mean: 64.8 cm/sec MV dec time: 0.13 sec Ao mean P.9 mmHg Ao V2 VTI: 20.3 cm ANUJ(I,D): 3.5 cm2 ANUJ(V,D): 3.7 cm2 LV V1 max P.4 mmHg SV(LVOT): 71.3 ml LV V1 mean P.7 mmHg LV V1 max: 92.6 cm/sec LV V1 mean: 60.7 cm/sec LV V1 VTI: 19.6 cm TR max rodo: 263.4 cm/sec PA V2 max: 74.4 cm/sec TR max P.8 mmHg PA max P.2 mmHg Med Peak E' Rodo: 6.6 cm/sec Med E/e': 9.3 Lat Peak E' Rodo: 9.5 cm/sec Lat E/e': 6.5 Procedure The study was technically difficult with many images being suboptimal in quality. Left Ventricle Left ventricular systolic function is grossly normal. Ejection Fraction = 50-55%. Regional wall motio n abnormalities cannot be excluded due to limited visualization. Right Ventricle The right ventricle is mild to moderately dilated. The right ventricular systolic function is mild to moderately reduced. Atria Normal left and right atrial size and function. Mitral Valve The mitral valve is grossly normal. There is no mitral valve stenosis. There is mild mitral regurgita tion. Tricuspid Valve The tricuspid valve is normal in structure and function. There is mild tricuspid regurgitation. Right ventricular systolic pressure is normal. Aortic Valve No hemodynamically significant valvular aortic stenosis. No aortic regurgitation is present. Pulmonic Valve The pulmonic valve is not well seen, but is grossly normal. There is no pulmonic valvular stenosis. M ild pulmonic valvular regurgitation. Great Vessels The aortic root is normal size. Pericardium/Pleura Trivial pericardial effusion not hemodynamically significant. Interpretation Summary The study was technically difficult with many images being suboptimal in quality. Regional wall motion abnormalities cannot be excluded due to limited visualization. Left ventricular systolic function is grossly normal. Ejection Fraction = 50-55%. The right ventricle is mild to moderately dilated. The right ventricular systolic function is mild to moderately reduced. There is mild mitral regurgitation. There is mild tricuspid regurgitation. Right ventricular systolic pressure is normal. Trivial pericardial effusion not hemodynamically significant MD Meeks *[place] 10/03/2018 10:12 AM
--- NOTE | 2018-10-03 10:15 | PN ---
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
--- NOTE | 2018-10-03 10:22 | CON.CARD ---
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 Past 3 days felt sob. Mild central cp with deep breaths. No palps dizzy loc pnd orthopnea le edema. Prior to few days ago had been feeling fine. Found here to have large bl pe's. pmh: per hpi psh: c section social: no tob fam: no premature cad, scd ros: per hpi; no nvd, fever, gib hematuira dysuria muscle pain rivers vision changes meds: Home Medications Medication Instructions Recorded Alprazolam [Xanax] 1 mg PO BID 01/05/16 Topiramate [Topamax -] 50 mg PO BID 12/13/17 Levothyroxine [Synthroid -] 50 mcg PO DAILY #30 tablet 12/16/17 Methadone [Dolophine -] 50 mg PO DAILY 12/16/17 Quetiapine Fumarate [Seroquel] 100 mg PO HS #30 tablet 12/17/17 Hydrocortisone Acetate 28 gm TP BID PRN #1 oint...g. 03/08/18 [Hydrocortisone] Albuterol Sulfate Inhaler - 1 - 2 inh PO QID #1 inhaler 06/05/18 [Ventolin HFA Inhaler -] Azithromycin [Zithromax -] 250 mg PO UTDICT #6 tab 09/28/18 pe: Vital Signs Temp 97.5 F L 10/03/18 07:00 Pulse 79 10/03/18 08:13 Resp 15 10/03/18 07:00 BP 116/78 10/03/18 07:00 Pulse Ox 94 L 10/03/18 08:13 Intake & Output 10/02/18 10/02/18 10/03/18 11:59 23:59 11:59 Intake Total 20 Balance 20 Weight 250 lb 272 lb 11.2 oz Intake: Oral 20 Other: Voiding Method Diaper # Unmeasured Voids Void 1 Bowel Movement No Height 5 ft 6 in Body Mass Index (BMI) 40.3 Weight Measurement Method Built in [facility] nad no jvd rrr s1s2 no mrg cta bl nl eff aaox3 no jaundice diaphoresis pos dp pt no carotid bruits abd nt nd ps bs no le e/c/c Laboratory Last Values WBC 9.7 K/mm3 (4.0-10.0) 10/02/18 19:00 RBC 4.88 M/mm3 (3.60-5.2) 10/02/18 19:00 Hgb 13.6 GM/dL (10.7-15.3) 10/02/18 19:00 Hct 40.8 % (32.4-45.2) 10/02/18 19:00 MCV 83.8 fl (80-96) 10/02/18 19:00 MCH 27.9 pg (25.7-33.7) 10/02/18 19:00 MCHC 33.3 g/dl (32.0-36.0) 10/02/18 19:00 RDW 14.8 % (11.6-15.6) 10/02/18 19:00 Plt Count 222 K/MM3 (134-434) D 10/02/18 19:00 MPV 8.0 fl (7.5-11.1) 10/02/18 19:00 Absolute Neuts (auto) 7.0 K/mm3 (1.5-8.0) 10/02/18 19:00 Neutrophils % 72.4 % (42.8-82.8) 10/02/18 19:00 Lymphocytes % 17.7 % (8-40) 10/02/18 19:00 Monocytes % 6.3 % (3.8-10.2) 10/02/18 19:00 Eosinophils % 2.8 % (0-4.5) 10/02/18 19:00 Basophils % 0.8 % (0-2.0) 10/02/18 19:00 Nucleated RBC % 0 % (0-0) 10/02/18 19:00 PT with INR 12.40 SEC (9.7-13.0) 10/02/18 18:41 INR 1.05 (0.83-1.09) 10/02/18 18:41 PTT (Actin FS) 31.2 SECONDS (25.2-36.5) 10/02/18 22:20 Anticoagulation Therapy No Result Required. 10/03/18 09:30 Puncture Site Right radial 10/03/18 09:30 ABG pH 7.37 (7.35-7.45) 10/03/18 09:30 ABG pCO2 at Pt Temp 35.5 mmHg (35-45) 10/03/18 09:30 ABG pO2 at Pt Temp 263.0 mmHg (80-100) H* 10/03/18 09:30 ABG HCO3 20.0 meq/L (22-26) L 10/03/18 09:30 ABG O2 Sat (Measured) 99.5 % (90-98.9) H 10/03/18 09:30 ABG O2 Content 18.2 % vol (15-22) 10/03/18 09:30 ABG Base Excess -4.2 meq/l (-2-2) L 10/03/18 09:30 Ld Test Positive 10/03/18 09:30 VBG pH 7.34 (7.32-7.42) 10/02/18 19:00 POC VBG pCO2 44.8 mmHg (38-52) 10/02/18 19:00 POC VBG pO2 30.7 mmHg (28-48) D 10/02/18 19:00 VBG HCO3 23.7 % (90-98.9) L* 10/02/18 19:00 VBG O2 Sat (Trisha) 53.2 meq/L (19-25) H* 10/02/18 19:00 VBG Base Excess -1.7 meq/l (-2-2) 10/02/18 19:00 Carboxyhemoglobin 0.3 gm% (0.5-2.0) L 10/02/18 22:20 Methemoglobin 0.3 % (0.4-1.5) L 10/02/18 22:20 O2 Delivery Device No Result Required. 10/03/18 09:30 Oxygen Flow Rate Yes 10/03/18 09:30 Vent Mode No Result Required. 10/03/18 09:30 Vent Rate No Result Required. 10/03/18 09:30 Mechanical Rate No Result Required. 10/03/18 09:30 Pressure Support Vent No Result Required. 10/03/18 09:30 Sodium 143 mmol/L (136-145) 10/02/18 18:40 Potassium 4.0 mmol/L (3.5-5.1) 10/02/18 18:40 Chloride 110 mmol/L (98-107) H 10/02/18 18:40 Carbon Dioxide 26 mmol/L (21-32) 10/02/18 18:40 Anion Gap 8 MMOL/L (8-16) 10/02/18 18:40 BUN 12 mg/dL (7-18) 10/02/18 18:40 Creatinine 1.1 mg/dL (0.55-1.3) 10/02/18 18:40 Creat Clearance w eGFR 55.89 (>60) 10/02/18 18:40 Random Glucose 89 mg/dL (74-106) 10/02/18 18:40 Lactic Acid 1.4 mmol/L (0.4-2.0) 10/02/18 18:40 Calcium 8.1 mg/dL (8.5-10.1) L 10/02/18 18:40 Magnesium 2.2 mg/dL (1.8-2.4) 10/02/18 18:40 Total Bilirubin 0.2 mg/dL (0.2-1) 10/02/18 18:40 AST 6 U/L (15-37) L 10/02/18 18:40 ALT 17 U/L (13-61) 10/02/18 18:40 Alkaline Phosphatase 84 U/L (45-117) 10/02/18 18:40 Creatine Kinase 89 U/L (26-192) 10/02/18 18:40 Troponin I 1.28 ng/ml (0.00-0.05) H* 10/02/18 18:40 B-Natriuretic Peptide 1539.4 pg/ml (5-125) H 10/02/18 18:40 Total Protein 7.0 g/dl (6.4-8.2) 10/02/18 18:40 Albumin 3.5 g/dl (3.4-5.0) 10/02/18 18:40 TSH 1.15 uIU/ml (0.358-3.74) 10/02/18 18:40 Serum , Qual Negative 10/02/18 18:41 Urine Color Straw 10/03/18 01:00 Urine Appearance Clear 10/03/18 01:00 Urine pH 5.0 (5.0-8.0) 10/03/18 01:00 Ur Specific [place] 1.048 (1.010-1.035) H 10/03/18 01:00 Urine Protein Negative (NEGATIVE) 10/03/18 01:00 Urine Glucose (UA) Negative (NEGATIVE) 10/03/18 01:00 Urine Ketones Negative (NEGATIVE) 10/03/18 01:00 Urine Blood 1+ (NEGATIVE) H 10/03/18 01:00 Urine Nitrite Negative (NEGATIVE) 10/03/18 01:00 Urine Bilirubin Negative (<2.0 mg/dL) 10/03/18 01:00 Urine Urobilinogen Negative mg/dL (0.2-1.0) 10/03/18 01:00 Ur Leukocyte Esterase Negative (NEGATIVE) 10/03/18 01:00 Urine WBC (Auto) 1 /hpf (3-5) 10/03/18 01:00 Urine RBC (Auto) <1 /hpf (0-3) 10/03/18 01:00 Ur Epithelial Cells Rare /HPF (FEW) 10/03/18 01:00 Urine Mucus Rare 10/03/18 01:00 tele: sr cta chest: bl pe's, no chf le duplex: r dvt ecg: sinus tachy, new rbbb est cct 35 mins a/p: 38 f hx factor v leiden, seizures, hypothyroid, 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 sob, PE, dvt, factor v leiden: -pt with large bl pe's. she has evidence of right heart strain with +trops, new RBBB on ecg, and enlarged and hypokinetic RV on echo (i reviewed echo this AM, otherwise was unremarkable). She is currently getting AC with plans for ivc filter and catheter directed thrombolysis. Cont icu/tele monitoring. -heme eval pos trops: -no signs acs -mild elevation of trop secondary to large PE's with right heart strain. -cont to trend trops -PE treatment as above hypothyroid: -tsh wnl
[2018-10-03 10:32] LABS: HEMATOCRIT 38.7 % (32.4-45.2); MCH 28.4 pg (25.7-33.7); MCHC 33.7 g/dl (32.0-36.0); MEAN CELL VOLUME 84.1 fl (80-96); MEAN PLT VOLUME 8.2 fl (7.5-11.1); PLATELET COUNT 187 K/MM3 (134-434); RBC 4.59 M/mm3 (3.60-5.2); RDW 14.8 % (11.6-15.6); WHITE BLOOD COUNT 8.9 K/mm3 (4.0-10.0)
[2018-10-03 10:43] LABS: ALBUMIN 3.3 g/dl (3.4-5.0); ALK PHOS 81 U/L (45-117); ANION GAP 6 MMOL/L (8-16); BILIRUBIN,TOTAL 0.3 mg/dL (0.2-1); BLOOD UREA NITROGEN 11 mg/dL (7-18); CALCIUM 7.7 mg/dL (8.5-10.1); CHLORIDE 111 mmol/L (98-107); CO2 22 mmol/L (21-32); CREATININE 0.8 mg/dL (0.55-1.3); GLUCOSE,RANDOM 125 mg/dL (74-106); POTASSIUM 4.2 mmol/L (3.5-5.1); SGOT/AST 11 U/L (15-37); SGPT/ALT 19 U/L (13-61); SODIUM 140 mmol/L (136-145)
[2018-10-03] MEDS: MUPIROCIN 2% TOPICAL OINTMENT FOR DECOLONIZATION NS SCH ×2 (11:25→22:50)
[2018-10-03] MEDS: METHADONE HCL 40 MG DISPERSABLE TABLET PO SCH (11:25)
[2018-10-03] MEDS ORDERED: PT OWN MED DRAWER 7, Y5N ONE ×2 (11:58→21:35)
[2018-10-03] MEDS: ENOXAPARIN NA (PORCINE) 120 MG/0.8 ML DISP.SYRIN SQ SCH ×2 (12:16→22:51)
--- NOTE | 2018-10-03 12:55 | PN ---
Teaching Attending Note Name of Resident: Sam Boyer ATTENDING PHYSICIAN STATEMENT I saw and evaluated the patient. I reviewed the resident's note and discussed the case with the resident. I agree with the resident's findings and plan as documented. SUBJECTIVE: Patient seen and examined in the ICU. Awake and alert on NIPPV, 100% FiO2. Saturation is 100%. Hemodynamics have remained stable. Reports breathing is better on NIPPV. No CP. D/W Cardiology. Acute RV dysfunction and hypokinesis on ECHO this AM. D/W IR. Will benefit from mechanical thrombectomy and catheter directed thrombolysis. OBJECTIVE: Intake & Output 09/30/18 10/01/18 10/02/18 10/03/18 23:59 23:59 23:59 23:59 Intake Total 20 Balance 20 Weight 250 lb 272 lb 11.2 oz Last Vital Signs Temp Pulse Resp BP Pulse Ox 97.5 F L 79 15 116/78 94 L 10/03/18 07:00 10/03/18 08:13 10/03/18 07:00 10/03/18 07:00 10/03/18 08:13 Active Medications Albuterol Sulfate (Ventolin Hfa Inhaler -) 2 puff IH Q6H PRN PRN Reason: SHORT OF BREATH/WHEEZING Alprazolam (Xanax -) 1 mg PO BID [facility] Last Admin: 10/03/18 10:45 Dose: 1 mg Chlorhexidine Gluconate (Hibiclens For Decolonization -) 1 applic TP HS [facility] Enoxaparin Sodium (Lovenox -) 120 mg SQ BID [facility] Last Admin: 10/03/18 12:16 Dose: Not Given Alteplase, Recombinant 25 mg/ (Sodium Chloride) 250 mls @ 10 mls/hr IVPB ONCE ONE Stop: 10/04/18 13:59 Levothyroxine Sodium (Synthroid -) 50 mcg PO DAILY@0700 [facility] Last Admin: 10/03/18 06:39 Dose: 50 mcg Methadone HCl (Dolophine -) 40 mg PO DAILY [facility] Last Admin: 10/03/18 11:25 Dose: 40 mg Mupirocin (Bactroban Ointment (For Decolonization) -) 1 applic NS BID [facility] Stop: 10/08/18 09:59 Last Admin: 10/03/18 11:25 Dose: Not Given Topiramate (Topamax -) 50 mg PO BID [facility] Last Admin: 10/03/18 01:42 Dose: 50 mg GENERAL: The patient is awake, alert, and fully oriented, in no acute distress on NIPPV. HEAD: Normal with no signs of trauma. EYES: PERRL, extraocular movements intact, sclera anicteric, conjunctiva clear. No ptosis. ENT: Ears normal, nares patent, oropharynx clear without exudates, moist mucous membranes. NECK: Trachea midline, full range of motion, supple. LUNGS: Breath sounds equal, on NIPPV. HEART: Regular rate and rhythm, S1, S2 without murmur, rub or gallop. ABDOMEN: Soft, nontender, nondistended, normoactive bowel sounds, no guarding, no rebound, no hepatosplenomegaly, no masses. EXTREMITIES: 2+ pulses, warm, well-perfused, no edema. NEUROLOGICAL: Non-focal PSYCH: Normal mood, normal affect. SKIN: Warm, dry, normal turgor, no rashes or lesions noted Laboratory Results - last 24 hr 10/02/18 10/02/18 10/02/18 18:40 18:40 18:41 WBC RBC Hgb Hct MCV MCH MCHC RDW Plt Count MPV Absolute Neuts (auto) Neutrophils % Lymphocytes % Monocytes % Eosinophils % Basophils % Nucleated RBC % PT with INR 12.40 INR 1.05 PTT (Actin FS) Anticoagulation Therapy Puncture Site ABG pH ABG pCO2 at Pt Temp ABG pO2 at Pt Temp ABG HCO3 ABG O2 Sat (Measured) ABG O2 Content ABG Base Excess Ld Test VBG pH POC VBG pCO2 POC VBG pO2 VBG HCO3 VBG O2 Sat (Trisha) VBG Base Excess Carboxyhemoglobin Methemoglobin O2 Delivery Device Oxygen Flow Rate Vent Mode Vent Rate Mechanical Rate Pressure Support Vent Sodium 143 Potassium 4.0 Chloride 110 H Carbon Dioxide 26 Anion Gap 8 BUN 12 Creatinine 1.1 Creat Clearance w eGFR 55.89 Random Glucose 89 Lactic Acid 1.4 Calcium 8.1 L Magnesium 2.2 Total Bilirubin 0.2 AST 6 L ALT 17 Alkaline Phosphatase 84 Creatine Kinase 89 Troponin I 1.28 H* B-Natriuretic Peptide 1539.4 H Total Protein 7.0 Albumin 3.5 TSH 1.15 Serum , Qual Urine Color Urine Appearance Urine pH Ur Specific [place] Urine Protein Urine Glucose (UA) Urine Ketones Urine Blood Urine Nitrite Urine Bilirubin Urine Urobilinogen Ur Leukocyte Esterase Urine WBC (Auto) Urine RBC (Auto) Ur Epithelial Cells Urine Mucus 10/02/18 10/02/18 10/02/18 18:41 19:00 19:00 WBC 9.7 RBC 4.88 Hgb 13.6 Hct 40.8 MCV 83.8 MCH 27.9 MCHC 33.3 RDW 14.8 Plt Count 222 D MPV 8.0 Absolute Neuts (auto) 7.0 Neutrophils % 72.4 Lymphocytes % 17.7 Monocytes % 6.3 Eosinophils % 2.8 Basophils % 0.8 Nucleated RBC % 0 PT with INR INR PTT (Actin FS) Anticoagulation Therapy No Result Required. Puncture Site Right radial ABG pH 7.38 ABG pCO2 at Pt Temp 37.5 D ABG pO2 at Pt Temp 65.7 L D ABG HCO3 21.4 L ABG O2 Sat (Measured) 92.1 ABG O2 Content 17.0 ABG Base Excess -2.8 L Ld Test Positive VBG pH POC VBG pCO2 POC VBG pO2 VBG HCO3 VBG O2 Sat (Trisha) VBG Base Excess Carboxyhemoglobin Methemoglobin O2 Delivery Device Nasal Oxygen Flow Rate 7l Vent Mode No Result Required. Vent Rate No Result Required. Mechanical Rate No Result Required. Pressure Support Vent No Result Required. Sodium Potassium Chloride Carbon Dioxide Anion Gap BUN Creatinine Creat Clearance w eGFR Random Glucose Lactic Acid Calcium Magnesium Total Bilirubin AST ALT Alkaline Phosphatase Creatine Kinase Troponin I B-Natriuretic Peptide Total Protein Albumin TSH Serum , Qual Negative Urine Color Urine Appearance Urine pH Ur Specific [place] Urine Protein Urine Glucose (UA) Urine Ketones Urine Blood Urine Nitrite Urine Bilirubin Urine Urobilinogen Ur Leukocyte Esterase Urine WBC (Auto) Urine RBC (Auto) Ur Epithelial Cells Urine Mucus 10/02/18 10/02/18 10/02/18 19:00 22:20 22:20 WBC RBC Hgb Hct MCV MCH MCHC RDW Plt Count MPV Absolute Neuts (auto) Neutrophils % Lymphocytes % Monocytes % Eosinophils % Basophils % Nucleated RBC % PT with INR INR PTT (Actin FS) 31.2 Anticoagulation Therapy Puncture Site ABG pH ABG pCO2 at Pt Temp ABG pO2 at Pt Temp ABG HCO3 ABG O2 Sat (Measured) ABG O2 Content ABG Base Excess Ld Test VBG pH 7.34 POC VBG pCO2 44.8 POC VBG pO2 30.7 D VBG HCO3 23.7 L* VBG O2 Sat (Trisha) 53.2 H* VBG Base Excess -1.7 Carboxyhemoglobin 0.3 L Methemoglobin 0.3 L O2 Delivery Device Oxygen Flow Rate Vent Mode Vent Rate Mechanical Rate Pressure Support Vent Sodium Potassium Chloride Carbon Dioxide Anion Gap BUN Creatinine Creat Clearance w eGFR Random Glucose Lactic Acid Calcium Magnesium Total Bilirubin AST ALT Alkaline Phosphatase Creatine Kinase Troponin I B-Natriuretic Peptide Total Protein Albumin TSH Serum , Qual Urine Color Urine Appearance Urine pH Ur Specific [place] Urine Protein Urine Glucose (UA) Urine Ketones Urine Blood Urine Nitrite Urine Bilirubin Urine Urobilinogen Ur Leukocyte Esterase Urine WBC (Auto) Urine RBC (Auto) Ur Epithelial Cells Urine Mucus 10/03/18 10/03/18 10/03/18 01:00 09:30 09:40 WBC RBC Hgb Hct MCV MCH MCHC RDW Plt Count MPV Absolute Neuts (auto) Neutrophils % Lymphocytes % Monocytes % Eosinophils % Basophils % Nucleated RBC % PT with INR INR PTT (Actin FS) Anticoagulation Therapy No Result Required. Puncture Site Right radial ABG pH 7.37 ABG pCO2 at Pt Temp 35.5 ABG pO2 at Pt Temp 263.0 H* ABG HCO3 20.0 L ABG O2 Sat (Measured) 99.5 H ABG O2 Content 18.2 ABG Base Excess -4.2 L Ld Test Positive VBG pH POC VBG pCO2 POC VBG pO2 VBG HCO3 VBG O2 Sat (Trisha) VBG Base Excess Carboxyhemoglobin Methemoglobin O2 Delivery Device No Result Required. Oxygen Flow Rate Yes Vent Mode No Result Required. Vent Rate No Result Required. Mechanical Rate No Result Required. Pressure Support Vent No Result Required. Sodium 140 Potassium 4.2 Chloride 111 H Carbon Dioxide 22 Anion Gap 6 L BUN 11 Creatinine 0.8 Creat Clearance w eGFR > 60 Random Glucose 125 H Lactic Acid Calcium 7.7 L Magnesium Total Bilirubin 0.3 AST 11 L ALT 19 Alkaline Phosphatase 81 Creatine Kinase Troponin I 0.34 H B-Natriuretic Peptide Total Protein 7.0 Albumin 3.3 L TSH Serum , Qual Urine Color Straw Urine Appearance Clear Urine pH 5.0 Ur Specific [place] 1.048 H Urine Protein Negative Urine Glucose (UA) Negative Urine Ketones Negative Urine Blood 1+ H Urine Nitrite Negative Urine Bilirubin Negative Urine Urobilinogen Negative Ur Leukocyte Esterase Negative Urine WBC (Auto) 1 Urine RBC (Auto) <1 Ur Epithelial Cells Rare Urine Mucus Rare 10/03/18 09:40 WBC 8.9 RBC 4.59 Hgb 13.0 Hct 38.7 MCV 84.1 MCH 28.4 MCHC 33.7 RDW 14.8 Plt Count 187 MPV 8.2 Absolute Neuts (auto) Neutrophils % Lymphocytes % Monocytes % Eosinophils % Basophils % Nucleated RBC % PT with INR INR PTT (Actin FS) Anticoagulation Therapy Puncture Site ABG pH ABG pCO2 at Pt Temp ABG pO2 at Pt Temp ABG HCO3 ABG O2 Sat (Measured) ABG O2 Content ABG Base Excess Ld Test VBG pH POC VBG pCO2 POC VBG pO2 VBG HCO3 VBG O2 Sat (Trisha) VBG Base Excess Carboxyhemoglobin Methemoglobin O2 Delivery Device Oxygen Flow Rate Vent Mode Vent Rate Mechanical Rate Pressure Support Vent Sodium Potassium Chloride Carbon Dioxide Anion Gap BUN Creatinine Creat Clearance w eGFR Random Glucose Lactic Acid Calcium Magnesium Total Bilirubin AST ALT Alkaline Phosphatase Creatine Kinase Troponin I B-Natriuretic Peptide Total Protein Albumin TSH Serum , Qual Urine Color Urine Appearance Urine pH Ur Specific [place] Urine Protein Urine Glucose (UA) Urine Ketones Urine Blood Urine Nitrite Urine Bilirubin Urine Urobilinogen Ur Leukocyte Esterase Urine WBC (Auto) Urine RBC (Auto) Ur Epithelial Cells Urine Mucus ASSESSMENT/PLAN: Submassive Bilateral Pulmonary Embolism Acute hypoxic respiratory failure New RBBB Right mid superficial femoral and popliteal DVT History of Factor 5 Leiden deficiency Methadone maintenance Depression Anxiety Hypothyroidism Seizure D/O D/W IR: arrangements being made for mechanical thrombectomy and catheter directed tPA. Risks and benefit discussed at length with the patient NIPPV as needed IVF Aspiration precautions Hematology evaluation Cardiology evaluation No clear indication for IVC Filter BD TX PRN Requires ICU monitoring Dr Middleton Critical care time spent in reviewing chart, evaluating patient and formulating plan - 36 minutes.
[2018-10-03] MEDS ORDERED: SODIUM CHLORIDE IVPB ONE ×2 (13:00)
[2018-10-03] MEDS ORDERED: ALTEPLASE IVPB ONE ×2 (13:00)
[2018-10-03] MEDS ORDERED: ALTEPLASE (CATHFLO) 25 MG in SODIUM CHLORIDE 250 ML IVPB ONE (13:00)
--- NOTE | 2018-10-03 14:20 | EKG ---
Test Reason : Blood Pressure : / mmHG Vent. Rate : 114 BPM Atrial Rate : 114 BPM P-R Int : 130 ms QRS Dur : 130 ms QT Int : 372 ms P-R-T Axes : 044 -35 -03 degrees QTc Int : 512 ms SINUS TACHYCARDIA LEFT AXIS DEVIATION RIGHT BUNDLE BRANCH BLOCK ABNORMAL ECG WHEN COMPARED WITH ECG OF 02-OCT-2018 18:49, NO SIGNIFICANT CHANGE WAS FOUND Confirmed by TEZ JEAN BAPTISTE MD ([id number]) on 10/03/2018 2:20:27 PM Referred By: Confirmed By:TEZ JEAN BAPTISTE MD
--- NOTE | 2018-10-03 14:24 | EKG ---
Test Reason : Blood Pressure : / mmHG Vent. Rate : 128 BPM Atrial Rate : 128 BPM P-R Int : 132 ms QRS Dur : 130 ms QT Int : 416 ms P-R-T Axes : 048 -45 002 degrees QTc Int : 607 ms SINUS TACHYCARDIA RIGHT BUNDLE BRANCH BLOCK LEFT ANTERIOR FASCICULAR BLOCK BIFASCICULAR BLOCK POSSIBLE LATERAL INFARCT , AGE UNDETERMINED NONSPECIFIC ST ABNORMALITY ABNORMAL ECG Confirmed by TEZ JEAN BAPTISTE MD ([id number]) on 10/03/2018 2:24:40 PM Referred By: Confirmed By:TEZ JEAN BAPTISTE MD
--- NOTE | 2018-10-03 16:23 | PN ---
Progress Note, Physician Chief Complaint: patient is back from pulmonary thrombectomy now has RIJ with alteplase infusion awake alert on venti mask - Current Medication List Current Medications: Active Medications Albuterol Sulfate (Ventolin Hfa Inhaler -) 2 puff IH Q6H PRN PRN Reason: SHORT OF BREATH/WHEEZING Alprazolam (Xanax -) 1 mg PO BID [facility] Last Admin: 10/03/18 10:45 Dose: 1 mg Chlorhexidine Gluconate (Hibiclens For Decolonization -) 1 applic TP HS [facility] Enoxaparin Sodium (Lovenox -) 120 mg SQ BID [facility] Last Admin: 10/03/18 12:16 Dose: Not Given Alteplase, Recombinant 25 mg/ (Sodium Chloride) 250 mls @ 10 mls/hr IVPB ONCE ONE Stop: 10/04/18 13:59 Last Admin: 10/03/18 15:48 Dose: 10 mls/hr Levothyroxine Sodium (Synthroid -) 50 mcg PO DAILY@0700 [facility] Last Admin: 10/03/18 06:39 Dose: 50 mcg Methadone HCl (Dolophine -) 40 mg PO DAILY [facility] Last Admin: 10/03/18 11:25 Dose: 40 mg Mupirocin (Bactroban Ointment (For Decolonization) -) 1 applic NS BID [facility] Stop: 10/08/18 09:59 Last Admin: 10/03/18 11:25 Dose: Not Given Topiramate (Topamax -) 50 mg PO BID [facility] Last Admin: 10/03/18 10:30 Dose: 50 mg - Objective Vital Signs: Vital Signs Temperature 97.5 F L 10/03/18 07:00 Pulse Rate 91 H 10/03/18 15:00 Respiratory Rate 20 10/03/18 15:00 Blood Pressure 131/65 10/03/18 15:00 O2 Sat by Pulse Oximetry (%) 87 L 10/03/18 14:35 Constitutional: Yes: Calm Cardiovascular: Yes: Regular Rate and Rhythm, S1, S2 Respiratory: Yes: On Venti-Mask, Rhonchi Gastrointestinal: Yes: Normal Bowel Sounds, Soft Edema: Yes Neurological: Yes: Alert, Oriented Labs: CBC, BMP 10/03/18 09:40 10/03/18 09:40 INR, PTT INR 1.05 (0.83-1.09) 10/02/18 18:41 Problem List - Problems (1) Pulmonary emboli Assessment/Plan: s/p pulmonary thrombectomy icu monitiring venti mask lovenox appreicate ID eval no further abx troponin trending down Code(s): I26.99 - OTHER PULMONARY EMBOLISM WITHOUT ACUTE COR PULMONALE (2) Hypothyroid Assessment/Plan: synthroid Code(s): E03.9 - HYPOTHYROIDISM, UNSPECIFIED
[2018-10-03] MEDS: CHLORHEXIDINE GLUCONATE 4% CLEANSER FOR DECOLONIZATION TP SCH (22:03)
--- NOTE | 2018-10-03 22:40 | CONS ---
DATE OF CONSULTATION: DATE OF DICTATION: 10/03/2018 REQUESTING PHYSICIAN: José Miguel Peter MD HISTORY: This is a 38-year-old woman who presented to the emergency room on the 3rd evening with complaints of severe shortness of breath and cough. For the past week, she has had progressive shortness of breath and dyspnea on exertion. She was seen in the ER 2 days earlier and given a Z-Harjinder without any improvement. She also notes that yesterday she had some pain in her left thigh. In the ER, she was noted to be hypoxic in the 80s. She was placed on a nonrebreather and then BiPAP. Oxygenation improved. She had a CAT scan of her chest and was found to have bilateral PEs. She had a new right bundle branch on EKG as well. She was admitted to the ICU for further care. Question of pneumonia was raised, and we were asked to see her. She received vancomycin and aztreonam in the ER. She had a PENICILLIN and SULFA allergy. She has not had any fever, and her labs were normal in the emergency room. PAST MEDICAL HISTORY: Notable for history of mitral valve prolapse, pneumonia. She has factor 5 Leiden deficiency. She has a history of opiate addiction and is on methadone maintenance, anxiety with bipolar disorder, and she is hypothyroid. PAST SURGICAL HISTORY: Notable for a section in 2008. 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 She has a 10-year-old daughter who lives at home with her. She has not had any sick contacts. There is no history of any cigarette use. She does not use marijuana or other substances. She is on methadone. She reports she is HIV negative and hepatitis C negative. ALLERGIES: PENICILLIN and SULFA DRUGS. MEDICATIONS: As an outpatient include alprazolam, Topamax, Synthroid, Seroquel, methadone, and the recent Zithromax. FAMILY HISTORY: Notable for factor 5 Leiden in her mother, diabetes, heart disease, father with colon cancer. REVIEW OF SYSTEMS: Notable for the fact that she has this cough and short of breath. PHYSICAL EXAMINATION: General: She is awake and alert. Vital Signs: Temperature 97.5, pulse 80, blood pressure 116/78, respiratory rate 15. She is on BiPAP. She is alert, and she wants to take it off. HEENT: She is normocephalic. Her eyes are anicteric. Neck: Supple. Lungs: Diminished breath sounds at the bases. Heart: Regular rate and rhythm. Abdomen: Soft and nontender. I cannot appreciate any organomegaly as she weighs 123 kg. Extremities: Without edema. She did report earlier right thigh pain. DIAGNOSTIC DATA: Her labs are notable for a normal white count of 9.7, hemoglobin 13.6, platelets 222, BUN 12, creatinine 1.1. Troponin 1.28 with a BNP 1539. Serum test is negative. Urinalysis is negative. She had a Legionella and pneumococcal antigen that is negative. Her chest CTA was reviewed with the nursing center tutor and agreed that there is no acute infiltrate. She does have evidence of what appears to maybe a small pulmonary infarct and bilateral PEs. She is being evaluated for further treatment of her PEs per Pulmonary. At this time, her CT imaging is more consistent with infarct. I doubt pneumonia. She has no fever or leukocytosis. Would defer her management for her bilateral PEs to Pulmonary and Cardiology at this time. An echocardiogram has just been done. Results are pending. RONI ADAM M.D. [id number]
[2018-10-04] MEDS: ALPRAZolam 2 MG TABLET PO PRN ×3 (02:20→17:55)
[2018-10-04] MEDS: TOPIRAMATE 25 MG TABLET (FP) PO SCH ×3 (02:53→21:24)
[2018-10-04 06:01] LABS: BASO % 0.2 % (0-2.0); EOS % 0.1 % (0-4.5); HEMATOCRIT 36.2 % (32.4-45.2); LYMPH % 17.9 % (8-40); MCH 27.7 pg (25.7-33.7); MCHC 33.1 g/dl (32.0-36.0); MEAN CELL VOLUME 83.7 fl (80-96); MEAN PLT VOLUME 8.1 fl (7.5-11.1); MONO % 5.1 % (3.8-10.2); NEUT % 76.7 % (42.8-82.8); PLATELET COUNT 178 K/MM3 (134-434); RBC 4.33 M/mm3 (3.60-5.2); RDW 14.9 % (11.6-15.6); WHITE BLOOD COUNT 9.8 K/mm3 (4.0-10.0)
[2018-10-04] MEDS: LEVOTHYROXINE NA 50 MCG TABLET (FP) PO SCH (06:12)
[2018-10-04 06:44] LABS: MAGNESIUM 2.6 mg/dL (1.8-2.4)
[2018-10-04] MEDS ORDERED: PT OWN MED DRAWER 7, Y5N ONE ×4 (09:49→21:21)
--- NOTE | 2018-10-04 09:53 | PN ---
Progress Note (short form) - Note Progress Note: Pulm/CCM SUBJECTIVE: Patient seen and examined in the ICU. -to IR yesterday for directed tPA, infusion to stop this afternoon -resp status improved, spo2 98 on RA, no distress or tachypnea, HR improved. OBJECTIVE: Vital Signs Temp 98.0 F 10/04/18 08:00 Pulse 74 10/04/18 08:22 Resp 13 10/04/18 08:00 BP 104/73 10/04/18 08:00 Pulse Ox 95 10/04/18 08:22 Intake & Output 10/03/18 10/03/18 10/04/18 11:59 23:59 11:59 Intake Total 20 140 270 Balance 20 140 270 Weight 123.695 kg 126.189 kg Intake: IV 40 70 none 40 70 Oral 20 100 200 Other: Voiding Method Diaper Diaper Diaper # Unmeasured Voids Void 1 1 1 Bowel Movement No No No Weight Measurement Method [facility] Active Medications Albuterol Sulfate (Ventolin Hfa Inhaler -) 2 puff IH Q6H PRN PRN Reason: SHORT OF BREATH/WHEEZING Alprazolam (Xanax -) 1 mg PO Q8H PRN PRN Reason: ANXIETY Last Admin: 10/04/18 02:20 Dose: 1 mg Chlorhexidine Gluconate (Hibiclens For Decolonization -) 1 applic TP HS [facility] Last Admin: 10/03/18 22:03 Dose: 1 applic Enoxaparin Sodium (Lovenox -) 120 mg SQ BID [facility] Last Admin: 10/03/18 22:51 Dose: 120 mg Alteplase, Recombinant 25 mg/ (Sodium Chloride) 250 mls @ 10 mls/hr IVPB ONCE ONE Stop: 10/04/18 13:59 Last Admin: 10/03/18 15:48 Dose: 10 mls/hr Levothyroxine Sodium (Synthroid -) 50 mcg PO DAILY@0700 [facility] Last Admin: 10/04/18 06:12 Dose: 50 mcg Methadone HCl (Dolophine -) 40 mg PO DAILY [facility] Last Admin: 10/03/18 11:25 Dose: 40 mg Mupirocin (Bactroban Ointment (For Decolonization) -) 1 applic NS BID [facility] Stop: 10/08/18 09:59 Last Admin: 10/03/18 22:50 Dose: 1 applic Topiramate (Topamax -) 50 mg PO BID [facility] Last Admin: 10/04/18 02:53 Dose: 50 mg GENERAL: awake no distress HEAD: Normal with no signs of trauma. EYES: PERRL, extraocular movements intact, sclera anicteric, conjunctiva clear. No ptosis. NECK: Trachea midline, full range of motion, supple, RIJ introducer CDI, tPA infusing LUNGS: Breath sounds equal,off o2, no distress HEART: Regular rate and rhythm, S1, S2 without murmur, rub or gallop. ABDOMEN: obese, soft EXTREMITIES: 2+ pulses, warm, well-perfused, no edema. NEUROLOGICAL: Non-focal exam PSYCH: Normal mood, normal affect. SKIN: w/d, no rash Laboratory Last Values WBC 9.8 K/mm3 (4.0-10.0) 10/04/18 05:30 RBC 4.33 M/mm3 (3.60-5.2) 10/04/18 05:30 Hgb 12.0 GM/dL (10.7-15.3) 10/04/18 05:30 Hct 36.2 % (32.4-45.2) 10/04/18 05:30 MCV 83.7 fl (80-96) 10/04/18 05:30 MCH 27.7 pg (25.7-33.7) 10/04/18 05:30 MCHC 33.1 g/dl (32.0-36.0) 10/04/18 05:30 RDW 14.9 % (11.6-15.6) 10/04/18 05:30 Plt Count 178 K/MM3 (134-434) 10/04/18 05:30 MPV 8.1 fl (7.5-11.1) 10/04/18 05:30 Absolute Neuts (auto) 7.6 K/mm3 (1.5-8.0) 10/04/18 05:30 Neutrophils % 76.7 % (42.8-82.8) 10/04/18 05:30 Lymphocytes % 17.9 % (8-40) 10/04/18 05:30 Monocytes % 5.1 % (3.8-10.2) 10/04/18 05:30 Eosinophils % 0.1 % (0-4.5) D 10/04/18 05:30 Basophils % 0.2 % (0-2.0) 10/04/18 05:30 Nucleated RBC % 0 % (0-0) 10/04/18 05:30 PT with INR 12.40 SEC (9.7-13.0) 10/02/18 18:41 INR 1.05 (0.83-1.09) 10/02/18 18:41 PTT (Actin FS) 30.1 SECONDS (25.2-36.5) 10/04/18 05:30 Anticoagulation Therapy No Result Required. 10/03/18 09:30 Puncture Site Right radial 10/03/18 09:30 ABG pH 7.37 (7.35-7.45) 10/03/18 09:30 ABG pCO2 at Pt Temp 35.5 mmHg (35-45) 10/03/18 09:30 ABG pO2 at Pt Temp 263.0 mmHg (80-100) H* 10/03/18 09:30 ABG HCO3 20.0 meq/L (22-26) L 10/03/18 09:30 ABG O2 Sat (Measured) 99.5 % (90-98.9) H 10/03/18 09:30 ABG O2 Content 18.2 % vol (15-22) 10/03/18 09:30 ABG Base Excess -4.2 meq/l (-2-2) L 10/03/18 09:30 Ld Test Positive 10/03/18 09:30 VBG pH 7.34 (7.32-7.42) 10/02/18 19:00 POC VBG pCO2 44.8 mmHg (38-52) 10/02/18 19:00 POC VBG pO2 30.7 mmHg (28-48) D 10/02/18 19:00 VBG HCO3 23.7 % (90-98.9) L* 10/02/18 19:00 VBG O2 Sat (Trisha) 53.2 meq/L (19-25) H* 10/02/18 19:00 VBG Base Excess -1.7 meq/l (-2-2) 10/02/18 19:00 Carboxyhemoglobin 0.3 gm% (0.5-2.0) L 10/02/18 22:20 Methemoglobin 0.3 % (0.4-1.5) L 10/02/18 22:20 O2 Delivery Device No Result Required. 10/03/18 09:30 Oxygen Flow Rate Yes 10/03/18 09:30 Vent Mode No Result Required. 10/03/18 09:30 Vent Rate No Result Required. 10/03/18 09:30 Mechanical Rate No Result Required. 10/03/18 09:30 Pressure Support Vent No Result Required. 10/03/18 09:30 Sodium 140 mmol/L (136-145) 10/03/18 09:40 Potassium 4.2 mmol/L (3.5-5.1) 10/03/18 09:40 Chloride 111 mmol/L (98-107) H 10/03/18 09:40 Carbon Dioxide 22 mmol/L (21-32) 10/03/18 09:40 Anion Gap 6 MMOL/L (8-16) L 10/03/18 09:40 BUN 11 mg/dL (7-18) 10/03/18 09:40 Creatinine 0.8 mg/dL (0.55-1.3) 10/03/18 09:40 Creat Clearance w eGFR > 60 (>60) 10/03/18 09:40 Random Glucose 125 mg/dL (74-106) H 10/03/18 09:40 Lactic Acid 1.4 mmol/L (0.4-2.0) 10/02/18 18:40 Calcium 7.7 mg/dL (8.5-10.1) L 10/03/18 09:40 Magnesium 2.6 mg/dL (1.8-2.4) H 10/04/18 05:30 Total Bilirubin 0.3 mg/dL (0.2-1) 10/03/18 09:40 AST 11 U/L (15-37) L 10/03/18 09:40 ALT 19 U/L (13-61) 10/03/18 09:40 Alkaline Phosphatase 81 U/L (45-117) 10/03/18 09:40 Creatine Kinase 66 U/L (26-192) 10/04/18 05:30 Troponin I 0.65 ng/ml (0.00-0.05) H* 10/04/18 05:30 B-Natriuretic Peptide 1539.4 pg/ml (5-125) H 10/02/18 18:40 Total Protein 7.0 g/dl (6.4-8.2) 10/03/18 09:40 Albumin 3.3 g/dl (3.4-5.0) L 10/03/18 09:40 TSH 1.15 uIU/ml (0.358-3.74) 10/02/18 18:40 Serum , Qual Negative 10/02/18 18:41 Urine Color Straw 10/03/18 01:00 Urine Appearance Clear 10/03/18 01:00 Urine pH 5.0 (5.0-8.0) 10/03/18 01:00 Ur Specific [place] 1.048 (1.010-1.035) H 10/03/18 01:00 Urine Protein Negative (NEGATIVE) 10/03/18 01:00 Urine Glucose (UA) Negative (NEGATIVE) 10/03/18 01:00 Urine Ketones Negative (NEGATIVE) 10/03/18 01:00 Urine Blood 1+ (NEGATIVE) H 10/03/18 01:00 Urine Nitrite Negative (NEGATIVE) 10/03/18 01:00 Urine Bilirubin Negative (<2.0 mg/dL) 10/03/18 01:00 Urine Urobilinogen Negative mg/dL (0.2-1.0) 10/03/18 01:00 Ur Leukocyte Esterase Negative (NEGATIVE) 10/03/18 01:00 Urine WBC (Auto) 1 /hpf (3-5) 10/03/18 01:00 Urine RBC (Auto) <1 /hpf (0-3) 10/03/18 01:00 Ur Epithelial Cells Rare /HPF (FEW) 10/03/18 01:00 Urine Mucus Rare 10/03/18 01:00 ASSESSMENT/PLAN: Submassive Bilateral Pulmonary Embolism Acute hypoxic respiratory failure New RBBB Right mid superficial femoral and popliteal DVT History of Factor 5 Leiden deficiency Methadone maintenance Depression Anxiety Hypothyroidism Seizure D/O S/p mechanical thrombectomy and catheter directed tPA. fio2 as need IVF Aspiration precautions Hematology evaluation , lovenox to start post tPA Cardiology evaluation No clear indication for IVC Filter , has not failed A/C BD TX PRN Requires ICU monitoring Lyle ACNP [id number]
[2018-10-04] MEDS: ENOXAPARIN NA (PORCINE) 120 MG/0.8 ML DISP.SYRIN SQ SCH ×2 (09:55→22:45)
[2018-10-04] MEDS: METHADONE HCL 40 MG DISPERSABLE TABLET PO SCH (09:55)
--- NOTE | 2018-10-04 09:56 | PN ---
Progress Note, Physician - Current Medication List Current Medications: Active Medications Albuterol Sulfate (Ventolin Hfa Inhaler -) 2 puff IH Q6H PRN PRN Reason: SHORT OF BREATH/WHEEZING Alprazolam (Xanax -) 1 mg PO Q8H PRN PRN Reason: ANXIETY Last Admin: 10/04/18 02:20 Dose: 1 mg Chlorhexidine Gluconate (Hibiclens For Decolonization -) 1 applic TP HS [facility] Last Admin: 10/03/18 22:03 Dose: 1 applic Enoxaparin Sodium (Lovenox -) 120 mg SQ BID [facility] Last Admin: 10/03/18 22:51 Dose: 120 mg Alteplase, Recombinant 25 mg/ (Sodium Chloride) 250 mls @ 10 mls/hr IVPB ONCE ONE Stop: 10/04/18 13:59 Last Admin: 10/03/18 15:48 Dose: 10 mls/hr Levothyroxine Sodium (Synthroid -) 50 mcg PO DAILY@0700 [facility] Last Admin: 10/04/18 06:12 Dose: 50 mcg Methadone HCl (Dolophine -) 40 mg PO DAILY [facility] Last Admin: 10/03/18 11:25 Dose: 40 mg Mupirocin (Bactroban Ointment (For Decolonization) -) 1 applic NS BID [facility] Stop: 10/08/18 09:59 Last Admin: 10/03/18 22:50 Dose: 1 applic Topiramate (Topamax -) 50 mg PO BID [facility] Last Admin: 10/04/18 02:53 Dose: 50 mg - Objective Vital Signs: Vital Signs Temperature 98.0 F 10/04/18 08:00 Pulse Rate 74 10/04/18 08:22 Respiratory Rate 13 10/04/18 08:00 Blood Pressure 104/73 10/04/18 08:00 O2 Sat by Pulse Oximetry (%) 95 10/04/18 08:22 Cardiovascular: Yes: S1, S2 Respiratory: Yes: Regular, CTA Bilaterally Gastrointestinal: Yes: Normal Bowel Sounds, Soft Labs: CBC, BMP 10/04/18 05:30 10/03/18 09:40 INR, PTT INR 1.05 (0.83-1.09) 10/02/18 18:41 Problem List - Problems (1) Pulmonary emboli Assessment/Plan: s/p pulmonary thrombectomy icu monitiring venti mask lovenox appreicate ID eval no further abx on tpa Code(s): I26.99 - OTHER PULMONARY EMBOLISM WITHOUT ACUTE COR PULMONALE (2) Opioid dependence on agonist therapy Code(s): F11.20 - OPIOID DEPENDENCE, UNCOMPLICATED (3) Elevated troponin Assessment/Plan: monitor ekg Code(s): R74.8 - ABNORMAL LEVELS OF OTHER SERUM ENZYMES
[2018-10-04] MEDS: MUPIROCIN 2% TOPICAL OINTMENT FOR DECOLONIZATION NS SCH ×2 (10:06→22:35)
--- NOTE | 2018-10-04 10:36 | PN ---
Progress Note, Physician History of Present Illness: AWAKE, ALERT NO C/O CHEST PAIN/ DYSPNEA + DRY COUGH NO F/C WBC WNL C/S NO GROWTH - Current Medication List Current Medications: Active Medications Albuterol Sulfate (Ventolin Hfa Inhaler -) 2 puff IH Q6H PRN PRN Reason: SHORT OF BREATH/WHEEZING Alprazolam (Xanax -) 1 mg PO Q8H PRN PRN Reason: ANXIETY Last Admin: 10/04/18 09:52 Dose: 1 mg Chlorhexidine Gluconate (Hibiclens For Decolonization -) 1 applic TP HS [facility] Last Admin: 10/03/18 22:03 Dose: 1 applic Enoxaparin Sodium (Lovenox -) 120 mg SQ BID [facility] Last Admin: 10/04/18 09:55 Dose: Not Given Alteplase, Recombinant 25 mg/ (Sodium Chloride) 250 mls @ 10 mls/hr IVPB ONCE ONE Stop: 10/04/18 13:59 Last Admin: 10/03/18 15:48 Dose: 10 mls/hr Levothyroxine Sodium (Synthroid -) 50 mcg PO DAILY@0700 [facility] Last Admin: 10/04/18 06:12 Dose: 50 mcg Methadone HCl (Dolophine -) 40 mg PO DAILY [facility] Last Admin: 10/04/18 09:55 Dose: 40 mg Mupirocin (Bactroban Ointment (For Decolonization) -) 1 applic NS BID [facility] Stop: 10/08/18 09:59 Last Admin: 10/04/18 10:06 Dose: 1 applic Topiramate (Topamax -) 50 mg PO BID [facility] Last Admin: 10/04/18 09:53 Dose: Not Given - Objective Vital Signs: Vital Signs Temperature 98.0 F 10/04/18 08:00 Pulse Rate 74 10/04/18 08:22 Respiratory Rate 13 10/04/18 08:00 Blood Pressure 104/73 10/04/18 08:00 O2 Sat by Pulse Oximetry (%) 95 10/04/18 08:22 Constitutional: Yes: Obese Cardiovascular: Yes: Regular Rate and Rhythm, S1, S2 Respiratory: Yes: Rhonchi, Wheezes Gastrointestinal: Yes: Normal Bowel Sounds, Soft, Abdomen, Obese. No: Tenderness Edema: Yes Labs: CBC, BMP 10/04/18 05:30 10/03/18 09:40 INR, PTT INR 1.05 (0.83-1.09) 10/02/18 18:41 Assessment/Plan PE DOUBT PNEUMONIA OBSERVE OFF ANTIBIOTICS
--- NOTE | 2018-10-04 12:06 | PN ---
Progress Note (short form) - Note Progress Note: s: no cp palps dizzy; sob better o: Vital Signs Temp 97.8 F 10/04/18 10:00 Pulse 80 10/04/18 10:00 Resp 13 10/04/18 10:00 BP 111/67 10/04/18 10:00 Pulse Ox 96 10/04/18 10:37 Intake & Output 10/03/18 10/04/18 10/04/18 23:59 11:59 23:59 Intake Total 140 270 Balance 140 270 Weight 278 lb 3.2 oz Intake: IV 40 70 none 40 70 Oral 100 200 Other: Voiding Method Diaper Diaper # Unmeasured Voids Void 1 1 Bowel Movement No No Weight Measurement Method Built in [facility] nad no jvd rrr s1s2 no mrg cta bl nl eff aaox3 no jaundice diaphoresis pos dp pt no carotid bruits abd nt nd ps bs no le e/c/c Laboratory Last Values WBC 9.8 K/mm3 (4.0-10.0) 10/04/18 05:30 RBC 4.33 M/mm3 (3.60-5.2) 10/04/18 05:30 Hgb 12.0 GM/dL (10.7-15.3) 10/04/18 05:30 Hct 36.2 % (32.4-45.2) 10/04/18 05:30 MCV 83.7 fl (80-96) 10/04/18 05:30 MCH 27.7 pg (25.7-33.7) 10/04/18 05:30 MCHC 33.1 g/dl (32.0-36.0) 10/04/18 05:30 RDW 14.9 % (11.6-15.6) 10/04/18 05:30 Plt Count 178 K/MM3 (134-434) 10/04/18 05:30 MPV 8.1 fl (7.5-11.1) 10/04/18 05:30 Absolute Neuts (auto) 7.6 K/mm3 (1.5-8.0) 10/04/18 05:30 Neutrophils % 76.7 % (42.8-82.8) 10/04/18 05:30 Lymphocytes % 17.9 % (8-40) 10/04/18 05:30 Monocytes % 5.1 % (3.8-10.2) 10/04/18 05:30 Eosinophils % 0.1 % (0-4.5) D 10/04/18 05:30 Basophils % 0.2 % (0-2.0) 10/04/18 05:30 Nucleated RBC % 0 % (0-0) 10/04/18 05:30 PT with INR 12.40 SEC (9.7-13.0) 10/02/18 18:41 INR 1.05 (0.83-1.09) 10/02/18 18:41 PTT (Actin FS) 30.1 SECONDS (25.2-36.5) 10/04/18 05:30 Anticoagulation Therapy No Result Required. 10/03/18 09:30 Puncture Site Right radial 10/03/18 09:30 ABG pH 7.37 (7.35-7.45) 10/03/18 09:30 ABG pCO2 at Pt Temp 35.5 mmHg (35-45) 10/03/18 09:30 ABG pO2 at Pt Temp 263.0 mmHg (80-100) H* 10/03/18 09:30 ABG HCO3 20.0 meq/L (22-26) L 10/03/18 09:30 ABG O2 Sat (Measured) 99.5 % (90-98.9) H 10/03/18 09:30 ABG O2 Content 18.2 % vol (15-22) 10/03/18 09:30 ABG Base Excess -4.2 meq/l (-2-2) L 10/03/18 09:30 Ld Test Positive 10/03/18 09:30 VBG pH 7.34 (7.32-7.42) 10/02/18 19:00 POC VBG pCO2 44.8 mmHg (38-52) 10/02/18 19:00 POC VBG pO2 30.7 mmHg (28-48) D 10/02/18 19:00 VBG HCO3 23.7 % (90-98.9) L* 10/02/18 19:00 VBG O2 Sat (Trisha) 53.2 meq/L (19-25) H* 10/02/18 19:00 VBG Base Excess -1.7 meq/l (-2-2) 10/02/18 19:00 Carboxyhemoglobin 0.3 gm% (0.5-2.0) L 10/02/18 22:20 Methemoglobin 0.3 % (0.4-1.5) L 10/02/18 22:20 O2 Delivery Device No Result Required. 10/03/18 09:30 Oxygen Flow Rate Yes 10/03/18 09:30 Vent Mode No Result Required. 10/03/18 09:30 Vent Rate No Result Required. 10/03/18 09:30 Mechanical Rate No Result Required. 10/03/18 09:30 Pressure Support Vent No Result Required. 10/03/18 09:30 Sodium 140 mmol/L (136-145) 10/03/18 09:40 Potassium 4.2 mmol/L (3.5-5.1) 10/03/18 09:40 Chloride 111 mmol/L (98-107) H 10/03/18 09:40 Carbon Dioxide 22 mmol/L (21-32) 10/03/18 09:40 Anion Gap 6 MMOL/L (8-16) L 10/03/18 09:40 BUN 11 mg/dL (7-18) 10/03/18 09:40 Creatinine 0.8 mg/dL (0.55-1.3) 10/03/18 09:40 Creat Clearance w eGFR > 60 (>60) 10/03/18 09:40 Random Glucose 125 mg/dL (74-106) H 10/03/18 09:40 Lactic Acid 1.4 mmol/L (0.4-2.0) 10/02/18 18:40 Calcium 7.7 mg/dL (8.5-10.1) L 10/03/18 09:40 Magnesium 2.6 mg/dL (1.8-2.4) H 10/04/18 05:30 Total Bilirubin 0.3 mg/dL (0.2-1) 10/03/18 09:40 AST 11 U/L (15-37) L 10/03/18 09:40 ALT 19 U/L (13-61) 10/03/18 09:40 Alkaline Phosphatase 81 U/L (45-117) 10/03/18 09:40 Creatine Kinase 66 U/L (26-192) 10/04/18 05:30 Troponin I 0.65 ng/ml (0.00-0.05) H* 10/04/18 05:30 B-Natriuretic Peptide 1539.4 pg/ml (5-125) H 10/02/18 18:40 Total Protein 7.0 g/dl (6.4-8.2) 10/03/18 09:40 Albumin 3.3 g/dl (3.4-5.0) L 10/03/18 09:40 TSH 1.15 uIU/ml (0.358-3.74) 10/02/18 18:40 Serum , Qual Negative 10/02/18 18:41 Urine Color Straw 10/03/18 01:00 Urine Appearance Clear 10/03/18 01:00 Urine pH 5.0 (5.0-8.0) 10/03/18 01:00 Ur Specific [place] 1.048 (1.010-1.035) H 10/03/18 01:00 Urine Protein Negative (NEGATIVE) 10/03/18 01:00 Urine Glucose (UA) Negative (NEGATIVE) 10/03/18 01:00 Urine Ketones Negative (NEGATIVE) 10/03/18 01:00 Urine Blood 1+ (NEGATIVE) H 10/03/18 01:00 Urine Nitrite Negative (NEGATIVE) 10/03/18 01:00 Urine Bilirubin Negative (<2.0 mg/dL) 10/03/18 01:00 Urine Urobilinogen Negative mg/dL (0.2-1.0) 10/03/18 01:00 Ur Leukocyte Esterase Negative (NEGATIVE) 10/03/18 01:00 Urine WBC (Auto) 1 /hpf (3-5) 10/03/18 01:00 Urine RBC (Auto) <1 /hpf (0-3) 10/03/18 01:00 Ur Epithelial Cells Rare /HPF (FEW) 10/03/18 01:00 Urine Mucus Rare 10/03/18 01:00 tele: sr cta chest: bl pe's, no chf le duplex: r dvt ecg: sinus tachy, new rbbb echo 09/2018: nl lv, mild-mod rve, mild-mod dec rv fcn, mild mr, mild tr, nl rvsp est cct 35 mins a/p: 38 f hx factor v leiden, seizures, hypothyroid, 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 sob, PE, dvt, factor v leiden: -pt with large bl pe's. she has evidence of right heart strain with +trops, new RBBB on ecg, and enlarged and hypokinetic RV on echo-->underwent catheter directed thrombolysis. Cont icu/tele monitoring. -heme eval -will need outpt cardio f/u to monitor RV fcn pos trops: -no signs acs -mild elevation of trop secondary to large PE's with right heart strain. -cont to trend trops -PE treatment as above hypothyroid: -tsh wnl
[2018-10-04 15:00] VITALS: BMI 44.9
[2018-10-04] MEDS: ACETAMINOPHEN 325 MG TABLET (FP) PO PRN (15:43)
[2018-10-04] MEDS: CHLORHEXIDINE GLUCONATE 4% CLEANSER FOR DECOLONIZATION TP SCH (22:45)
[2018-10-05] MEDS: ALPRAZolam 2 MG TABLET PO PRN ×3 (01:12→18:15)
[2018-10-05 06:11] LABS: HEMOGLOBIN 11.7 GM/dL (10.7-15.3); MCH 27.9 pg (25.7-33.7); MCHC 33.4 g/dl (32.0-36.0); MEAN CELL VOLUME 83.7 fl (80-96); PLATELET COUNT 161 K/MM3 (134-434); RBC 4.18 M/mm3 (3.60-5.2); RDW 14.8 % (11.6-15.6); WHITE BLOOD COUNT 6.9 K/mm3 (4.0-10.0)
[2018-10-05] MEDS: LEVOTHYROXINE NA 50 MCG TABLET (FP) PO SCH (06:18)
[2018-10-05] MEDS: METHADONE HCL 40 MG DISPERSABLE TABLET PO SCH (09:48)
[2018-10-05] MEDS: MUPIROCIN 2% TOPICAL OINTMENT FOR DECOLONIZATION NS SCH ×2 (09:48→21:14)
[2018-10-05] MEDS: TOPIRAMATE 25 MG TABLET (FP) PO SCH ×2 (09:49→21:14)
[2018-10-05] MEDS: ENOXAPARIN NA (PORCINE) 120 MG/0.8 ML DISP.SYRIN SQ SCH ×2 (09:49→21:13)
--- NOTE | 2018-10-05 09:55 | PN ---
Progress Note (short form) - Note Progress Note: Pulm/CCM SUBJECTIVE: Patient seen and examined in the ICU. -s/p directed tPA -on lovenox without obvious bleediing -improved resp status -OOB OBJECTIVE: Vital Signs Temp 98.2 F 10/05/18 08:00 Pulse 68 10/05/18 08:00 Resp 18 10/05/18 08:00 BP 103/73 10/05/18 08:00 Pulse Ox 94 L 10/05/18 08:33 Intake & Output 10/04/18 10/04/18 10/05/18 11:59 23:59 12:59 Intake Total 270 500 400 Balance 270 500 400 Weight 126.189 kg 126.099 kg 124.284 kg Intake: IV 70 80 TPA 80 none 70 Oral 200 420 400 Other: Voiding Method Diaper Toilet Toilet # Unmeasured Voids Void 1 2 1 Bowel Movement No No No # Bowel Movements 1 Height 5 ft 6 in Body Mass Index (BMI) 44.9 Weight Measurement Method Built in Bedscale Built in Bedscale Active Medications Acetaminophen (Tylenol -) 650 mg PO Q4H PRN PRN Reason: MILD PAIN Last Admin: 10/04/18 15:43 Dose: 650 mg Albuterol Sulfate (Ventolin Hfa Inhaler -) 2 puff IH Q6H PRN PRN Reason: SHORT OF BREATH/WHEEZING Alprazolam (Xanax -) 1 mg PO Q8H PRN PRN Reason: ANXIETY Last Admin: 10/05/18 01:12 Dose: 1 mg Chlorhexidine Gluconate (Hibiclens For Decolonization -) 1 applic TP HS [facility] Last Admin: 10/04/18 22:45 Dose: 1 applic Enoxaparin Sodium (Lovenox -) 120 mg SQ BID [facility] Last Admin: 10/05/18 09:49 Dose: 120 mg Levothyroxine Sodium (Synthroid -) 50 mcg PO DAILY@0700 [facility] Last Admin: 10/05/18 06:18 Dose: 50 mcg Methadone HCl (Dolophine -) 40 mg PO DAILY [facility] Last Admin: 10/05/18 09:48 Dose: 40 mg Mupirocin (Bactroban Ointment (For Decolonization) -) 1 applic NS BID [facility] Stop: 10/08/18 09:59 Last Admin: 10/05/18 09:48 Dose: 1 applic Topiramate (Topamax -) 50 mg PO BID [facility] Last Admin: 10/05/18 09:49 Dose: Not Given GENERAL: awake no distress HEAD: Normal with no signs of trauma. EYES: PERRL, extraocular movements intact, sclera anicteric, conjunctiva clear. No ptosis. NECK: Trachea midline, full range of motion, supple, introducer removed, no significant hematoma LUNGS: Breath sounds equal,off o2, no distress HEART: Regular rate and rhythm, S1, S2 without murmur, rub or gallop. ABDOMEN: obese, soft EXTREMITIES: 2+ pulses, warm, well-perfused, no edema. NEUROLOGICAL: Non-focal exam PSYCH: Normal mood, normal affect. SKIN: w/d, no rash CBC, BMP 10/05/18 05:30 10/03/18 09:40 ASSESSMENT/PLAN: Submassive Bilateral Pulmonary Embolism Acute hypoxic respiratory failure New RBBB Right mid superficial femoral and popliteal DVT History of Factor 5 Leiden deficiency Methadone maintenance Depression Anxiety Hypothyroidism Seizure D/O S/p mechanical thrombectomy and catheter directed tPA. fio2 as need IVF Aspiration precautions , regular diet Hematology evaluation , lovenox to start post tPA Cardiology evaluation, recs appreciated, repeat TTE and F/u as outpt to monitor for RV function/CTEPH No clear indication for IVC Filter , has not failed A/C BD TX PRN Ok for tele vs floor Loree ACNP [id number]
--- NOTE | 2018-10-05 11:41 | PN ---
Progress Note (short form) - Note Progress Note: s: no cp palps dizzy; sob better o: Vital Signs Period Temp Pulse Resp BP Sys/Humphries Pulse Ox Last 24 Hr 97.9 F-98.4 F 65-88 12-18 99-131/53-95 94-95 nad no jvd rrr s1s2 no mrg cta bl nl eff aaox3 no jaundice diaphoresis pos dp pt no carotid bruits abd nt nd ps bs no le e/c/c Laboratory Last Values WBC 6.9 K/mm3 (4.0-10.0) 10/05/18 05:30 RBC 4.18 M/mm3 (3.60-5.2) 10/05/18 05:30 Hgb 11.7 GM/dL (10.7-15.3) 10/05/18 05:30 Hct 35.0 % (32.4-45.2) 10/05/18 05:30 MCV 83.7 fl (80-96) 10/05/18 05:30 MCH 27.9 pg (25.7-33.7) 10/05/18 05:30 MCHC 33.4 g/dl (32.0-36.0) 10/05/18 05:30 RDW 14.8 % (11.6-15.6) 10/05/18 05:30 Plt Count 161 K/MM3 (134-434) 10/05/18 05:30 MPV 8.0 fl (7.5-11.1) 10/05/18 05:30 Absolute Neuts (auto) 7.6 K/mm3 (1.5-8.0) 10/04/18 05:30 Neutrophils % 76.7 % (42.8-82.8) 10/04/18 05:30 Lymphocytes % 17.9 % (8-40) 10/04/18 05:30 Monocytes % 5.1 % (3.8-10.2) 10/04/18 05:30 Eosinophils % 0.1 % (0-4.5) D 10/04/18 05:30 Basophils % 0.2 % (0-2.0) 10/04/18 05:30 Nucleated RBC % 0 % (0-0) 10/04/18 05:30 PT with INR 12.40 SEC (9.7-13.0) 10/02/18 18:41 INR 1.05 (0.83-1.09) 10/02/18 18:41 PTT (Actin FS) 36.5 SECONDS (25.2-36.5) 10/05/18 05:30 Anticoagulation Therapy No Result Required. 10/03/18 09:30 Puncture Site Right radial 10/03/18 09:30 ABG pH 7.37 (7.35-7.45) 10/03/18 09:30 ABG pCO2 at Pt Temp 35.5 mmHg (35-45) 10/03/18 09:30 ABG pO2 at Pt Temp 263.0 mmHg (80-100) H* 10/03/18 09:30 ABG HCO3 20.0 meq/L (22-26) L 10/03/18 09:30 ABG O2 Sat (Measured) 99.5 % (90-98.9) H 10/03/18 09:30 ABG O2 Content 18.2 % vol (15-22) 10/03/18 09:30 ABG Base Excess -4.2 meq/l (-2-2) L 10/03/18 09:30 Ld Test Positive 10/03/18 09:30 VBG pH 7.34 (7.32-7.42) 10/02/18 19:00 POC VBG pCO2 44.8 mmHg (38-52) 10/02/18 19:00 POC VBG pO2 30.7 mmHg (28-48) D 10/02/18 19:00 VBG HCO3 23.7 % (90-98.9) L* 10/02/18 19:00 VBG O2 Sat (Trisha) 53.2 meq/L (19-25) H* 10/02/18 19:00 VBG Base Excess -1.7 meq/l (-2-2) 10/02/18 19:00 Carboxyhemoglobin 0.3 gm% (0.5-2.0) L 10/02/18 22:20 Methemoglobin 0.3 % (0.4-1.5) L 10/02/18 22:20 O2 Delivery Device No Result Required. 10/03/18 09:30 Oxygen Flow Rate Yes 10/03/18 09:30 Vent Mode No Result Required. 10/03/18 09:30 Vent Rate No Result Required. 10/03/18 09:30 Mechanical Rate No Result Required. 10/03/18 09:30 Pressure Support Vent No Result Required. 10/03/18 09:30 Sodium 140 mmol/L (136-145) 10/03/18 09:40 Potassium 4.2 mmol/L (3.5-5.1) 10/03/18 09:40 Chloride 111 mmol/L (98-107) H 10/03/18 09:40 Carbon Dioxide 22 mmol/L (21-32) 10/03/18 09:40 Anion Gap 6 MMOL/L (8-16) L 10/03/18 09:40 BUN 11 mg/dL (7-18) 10/03/18 09:40 Creatinine 0.8 mg/dL (0.55-1.3) 10/03/18 09:40 Creat Clearance w eGFR > 60 (>60) 10/03/18 09:40 Random Glucose 125 mg/dL (74-106) H 10/03/18 09:40 Lactic Acid 1.4 mmol/L (0.4-2.0) 10/02/18 18:40 Calcium 7.7 mg/dL (8.5-10.1) L 10/03/18 09:40 Magnesium 2.6 mg/dL (1.8-2.4) H 10/04/18 05:30 Total Bilirubin 0.3 mg/dL (0.2-1) 10/03/18 09:40 AST 11 U/L (15-37) L 10/03/18 09:40 ALT 19 U/L (13-61) 10/03/18 09:40 Alkaline Phosphatase 81 U/L (45-117) 10/03/18 09:40 Creatine Kinase 32 U/L (26-192) 10/05/18 05:30 Troponin I 0.27 ng/ml (0.00-0.05) H 10/05/18 05:30 B-Natriuretic Peptide 1539.4 pg/ml (5-125) H 10/02/18 18:40 Total Protein 7.0 g/dl (6.4-8.2) 10/03/18 09:40 Albumin 3.3 g/dl (3.4-5.0) L 10/03/18 09:40 TSH 1.15 uIU/ml (0.358-3.74) 10/02/18 18:40 Serum , Qual Negative 10/02/18 18:41 Urine Color Straw 10/03/18 01:00 Urine Appearance Clear 10/03/18 01:00 Urine pH 5.0 (5.0-8.0) 10/03/18 01:00 Ur Specific [facility] 1.048 (1.010-1.035) H 10/03/18 01:00 Urine Protein Negative (NEGATIVE) 10/03/18 01:00 Urine Glucose (UA) Negative (NEGATIVE) 10/03/18 01:00 Urine Ketones Negative (NEGATIVE) 10/03/18 01:00 Urine Blood 1+ (NEGATIVE) H 10/03/18 01:00 Urine Nitrite Negative (NEGATIVE) 10/03/18 01:00 Urine Bilirubin Negative (<2.0 mg/dL) 10/03/18 01:00 Urine Urobilinogen Negative mg/dL (0.2-1.0) 10/03/18 01:00 Ur Leukocyte Esterase Negative (NEGATIVE) 10/03/18 01:00 Urine WBC (Auto) 1 /hpf (3-5) 10/03/18 01:00 Urine RBC (Auto) <1 /hpf (0-3) 10/03/18 01:00 Ur Epithelial Cells Rare /HPF (FEW) 10/03/18 01:00 Urine Mucus Rare 10/03/18 01:00 Stool Occult Blood Negative (NEGATIVE) 10/04/18 16:15 tele: sr cta chest: bl pe's, no chf le duplex: r dvt ecg: sinus tachy, new rbbb echo 09/2018: nl lv, mild-mod rve, mild-mod dec rv fcn, mild mr, mild tr, nl rvsp a/p: 38 f hx factor v leiden, seizures, hypothyroid, 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 sob, PE, dvt, factor v leiden: -pt with large bl pe's. she has evidence of right heart strain with +trops, new RBBB on ecg, and enlarged and hypokinetic RV on echo-->underwent catheter directed thrombolysis, now on AC -heme eval -will need outpt cardio f/u to monitor RV fcn pos trops: -no signs acs -mild elevation of trop secondary to large PE's with right heart strain. -PE treatment as above hypothyroid: -tsh wnl
--- NOTE | 2018-10-05 11:54 | EKG ---
Test Reason : Blood Pressure : / mmHG Vent. Rate : 076 BPM Atrial Rate : 076 BPM P-R Int : 138 ms QRS Dur : 102 ms QT Int : 456 ms P-R-T Axes : 052 006 -05 degrees QTc Int : 513 ms NORMAL SINUS RHYTHM PROLONGED QT ABNORMAL ECG WHEN COMPARED WITH ECG OF 02-OCT-2018 20:44, VENT. RATE HAS DECREASED BY 38 BPM RIGHT BUNDLE BRANCH BLOCK IS NO LONGER PRESENT Confirmed by MANOHAR MOSQUEDA, HUNG ([id number]) on 10/05/2018 11:54:13 AM Referred By: Confirmed By:HUNG VILLELA MD
--- NOTE | 2018-10-05 15:47 | PN ---
Progress Note, Physician - Current Medication List Current Medications: Active Medications Acetaminophen (Tylenol -) 650 mg PO Q4H PRN PRN Reason: MILD PAIN Last Admin: 10/04/18 15:43 Dose: 650 mg Albuterol Sulfate (Ventolin Hfa Inhaler -) 2 puff IH Q6H PRN PRN Reason: SHORT OF BREATH/WHEEZING Alprazolam (Xanax -) 1 mg PO Q8H PRN PRN Reason: ANXIETY Last Admin: 10/05/18 09:58 Dose: 1 mg Chlorhexidine Gluconate (Hibiclens For Decolonization -) 1 applic TP HS [facility] Last Admin: 10/04/18 22:45 Dose: 1 applic Enoxaparin Sodium (Lovenox -) 120 mg SQ BID [facility] Last Admin: 10/05/18 09:49 Dose: 120 mg Levothyroxine Sodium (Synthroid -) 50 mcg PO DAILY@0700 [facility] Last Admin: 10/05/18 06:18 Dose: 50 mcg Methadone HCl (Dolophine -) 40 mg PO DAILY [facility] Last Admin: 10/05/18 09:48 Dose: 40 mg Mupirocin (Bactroban Ointment (For Decolonization) -) 1 applic NS BID [facility] Stop: 10/08/18 09:59 Last Admin: 10/05/18 09:48 Dose: 1 applic Topiramate (Topamax -) 50 mg PO BID [facility] Last Admin: 10/05/18 09:49 Dose: Not Given - Objective Vital Signs: Vital Signs Temperature 97.9 F 10/05/18 14:00 Pulse Rate 78 10/05/18 14:00 Respiratory Rate 16 10/05/18 14:00 Blood Pressure 116/71 10/05/18 14:00 O2 Sat by Pulse Oximetry (%) 94 L 10/05/18 08:33 Cardiovascular: Yes: S1, S2 Respiratory: Yes: Regular, CTA Bilaterally Gastrointestinal: Yes: Normal Bowel Sounds, Soft Labs: CBC, BMP 10/05/18 05:30 10/03/18 09:40 INR, PTT INR 1.05 (0.83-1.09) 10/02/18 18:41 Problem List - Problems (1) Pulmonary emboli Assessment/Plan: s/p pulmonary thrombectomy icu monitiring venti mask lovenox appreicate ID eval no further abx on tpa Code(s): I26.99 - OTHER PULMONARY EMBOLISM WITHOUT ACUTE COR PULMONALE (2) Opioid dependence on agonist therapy Code(s): F11.20 - OPIOID DEPENDENCE, UNCOMPLICATED (3) Elevated troponin Assessment/Plan: monitor ekg Code(s): R74.8 - ABNORMAL LEVELS OF OTHER SERUM ENZYMES
[2018-10-05] MEDS ORDERED: PT OWN MED DRAWER 7, Y5N ONE (21:00)
[2018-10-05] MEDS: CHLORHEXIDINE GLUCONATE 4% CLEANSER FOR DECOLONIZATION TP SCH (21:14)
[2018-10-06] MEDS ORDERED: NOREPINEPHRINE BITARTRATE 4 MG/4 ML ML IV ONE (00:17)
[2018-10-06] MEDS: ALPRAZolam 2 MG TABLET PO PRN ×3 (03:05→20:03)
[2018-10-06] MEDS: LEVOTHYROXINE NA 50 MCG TABLET (FP) PO SCH (06:01)
[2018-10-06 06:10] LABS: HEMATOCRIT 38.2 % (32.4-45.2); HEMOGLOBIN 12.7 GM/dL (10.7-15.3); MCH 27.7 pg (25.7-33.7); MCHC 33.4 g/dl (32.0-36.0); MEAN CELL VOLUME 83.1 fl (80-96); MEAN PLT VOLUME 7.6 fl (7.5-11.1); PLATELET COUNT 187 K/MM3 (134-434); RDW 14.9 % (11.6-15.6); WHITE BLOOD COUNT 7.9 K/mm3 (4.0-10.0)
--- NOTE | 2018-10-06 07:44 | PN ---
Physical Exam: SUBJECTIVE: Patient seen and examined this AM. She states she is feeling much better than on admission. States her respiratory status is much better and that she is able to ambulate to the bathroom but is taking it easy. States she is having some soreness where the Right IJ line was placed. OBJECTIVE: Vital Signs Period Temp Pulse Resp BP Sys/Humphries Pulse Ox Last 24 Hr 97.8 F-98.2 F 67-80 12-20 102-125/67-81 94-95 GENERAL: A&O, no acute distress EYES: PERRL, no scleral icterus EARS, NOSE, THROAT: oropharynx clear without exudates. Moist mucous membranes. NECK: supple without lymphadenopathy LUNGS: some mild wheezes noted on the left HEART: Regular rate and rhythm, normal S1 and S2 without murmur ABDOMEN: Soft, nontender to palpation, normoactive bowel sounds. EXTREMITIES: 2+ pulses, warm, well-perfused. No peripheral edema. NEUROLOGICAL: Cranial nerves II-XII grossly intact. Normal speech. Laboratory Results - last 24 hr 10/06/18 10/06/18 05:30 05:30 WBC 7.9 RBC 4.60 Hgb 12.7 Hct 38.2 MCV 83.1 MCH 27.7 MCHC 33.4 RDW 14.9 Plt Count 187 MPV 7.6 PTT (Actin FS) 36.2 Active Medications Generic Name Dose Route Start Last Admin Trade Name Freq PRN Reason Stop Dose Admin Acetaminophen 650 mg 10/04/18 15:35 10/04/18 15:43 Tylenol - PO 650 mg Q4H PRN Administration MILD PAIN Albuterol Sulfate 2 puff 10/03/18 01:08 Ventolin Hfa Inhaler - IH Q6H PRN SHORT OF BREATH/WHEEZING Alprazolam 1 mg 10/03/18 17:53 10/06/18 03:05 Xanax - PO 1 mg Q8H PRN Administration ANXIETY Chlorhexidine Gluconate 1 applic 10/03/18 22:00 10/05/18 21:14 Hibiclens For Decolonization - TP 1 applic HS SUSIE Administration Enoxaparin Sodium 120 mg 10/03/18 12:00 10/05/18 21:13 Lovenox - SQ 120 mg BID SUSIE Administration Levothyroxine Sodium 50 mcg 10/03/18 07:00 10/06/18 06:01 Synthroid - PO 50 mcg DAILY@0700 SUSIE Administration Methadone HCl 40 mg 10/03/18 11:00 10/05/18 09:48 Dolophine - PO 40 mg DAILY SUSIE Administration Mupirocin 1 applic 10/03/18 10:00 10/05/18 21:14 Bactroban Ointment (For Decolonization) - NS 10/08/18 09:59 1 applic BID SUSIE Administration Topiramate 50 mg 10/03/18 01:15 10/05/18 21:14 Topamax - PO 50 mg BID SUSIE Administration ASSESSMENT/PLAN: 38 yo F with a PMHx of opiate abuse (on methadone 40mg daily), depression/ anxiety, hypothyroidism, seizures (on topamax), and Factor V Leiden deficiency NEURO -no neurological deficits at this time CARDIO -Troponin downtrended, likely due to heart strain secondary to PE -Cardiology consult appreciated RESPIRATORY -s/p Thrombectomy and catheter directed tPA -Saturating well on RA -Ambulating well without O2 HEMATOLOGY -Factor V Leiden, pt will need AC with PE hx -Hematology consulted ENDOCRINE -Hypothyroid - continue Synthroid 50 mcg PO Daily PROPHYLAXIS -Lovenox 120 mg SQ BID -Will discuss with primary about conversion to oral AC FEN -None -none -Regular Diet LINES/CATHETERS -none DISPOSITION Stable for transfer to Med/Surg Visit type - Emergency Visit Emergency Visit: Yes ED Registration Date: 10/02/18 Care time: The patient presented to the Emergency Department on the above date and was hospitalized for further evaluation of their emergent condition. - New Patient This patient is new to me today: Yes Date on this admission: 10/06/18 - Critical Care Critical Care patient: No
[2018-10-06] MEDS: ACETAMINOPHEN 325 MG TABLET (FP) PO PRN ×2 (09:00→13:55)
[2018-10-06] MEDS: MUPIROCIN 2% TOPICAL OINTMENT FOR DECOLONIZATION NS SCH (09:25)
[2018-10-06] MEDS: METHADONE HCL 40 MG DISPERSABLE TABLET PO SCH (09:26)
[2018-10-06] MEDS: ENOXAPARIN NA (PORCINE) 120 MG/0.8 ML DISP.SYRIN SQ SCH ×2 (09:27→21:14)
[2018-10-06] MEDS: TOPIRAMATE 25 MG TABLET (FP) PO SCH ×2 (09:28→21:14)
--- NOTE | 2018-10-06 10:29 | PN ---
Progress Note, Physician Chief Complaint: sob History of Present Illness: remains much improved sx-gupta, but still a bit breathless sometimes, with activity especially. no cp, palpit, syncope no cigs - Current Medication List Current Medications: Active Medications Acetaminophen (Tylenol -) 650 mg PO Q4H PRN PRN Reason: MILD PAIN Last Admin: 10/06/18 09:00 Dose: 650 mg Albuterol Sulfate (Ventolin Hfa Inhaler -) 2 puff IH Q6H PRN PRN Reason: SHORT OF BREATH/WHEEZING Alprazolam (Xanax -) 1 mg PO Q8H PRN PRN Reason: ANXIETY Last Admin: 10/06/18 03:05 Dose: 1 mg Chlorhexidine Gluconate (Hibiclens For Decolonization -) 1 applic TP HS [facility] Last Admin: 10/05/18 21:14 Dose: 1 applic Enoxaparin Sodium (Lovenox -) 120 mg SQ BID [facility] Last Admin: 10/06/18 09:27 Dose: 120 mg Levothyroxine Sodium (Synthroid -) 50 mcg PO DAILY@0700 [facility] Last Admin: 10/06/18 06:01 Dose: 50 mcg Methadone HCl (Dolophine -) 40 mg PO DAILY [facility] Last Admin: 10/06/18 09:26 Dose: 40 mg Mupirocin (Bactroban Ointment (For Decolonization) -) 1 applic NS BID [facility] Stop: 10/08/18 09:59 Last Admin: 10/06/18 09:25 Dose: 1 applic Topiramate (Topamax -) 50 mg PO BID [facility] Last Admin: 10/06/18 09:28 Dose: 50 mg - Objective Vital Signs: Vital Signs Temperature 98.2 F 10/06/18 06:00 Pulse Rate 68 10/06/18 06:00 Respiratory Rate 18 10/06/18 07:54 Blood Pressure 105/67 10/06/18 06:00 O2 Sat by Pulse Oximetry (%) 97 10/06/18 07:51 Constitutional: Yes: Obese Eyes: No: Sclera Icterus HENT: No: Nasal Congestion Cardiovascular: Yes: Regular Rate and Rhythm, S1, S2, Other (PMI non diplaced). No: Gallop, Murmur Respiratory: Yes: CTA Bilaterally. No: Accessory Muscle Use, Rales, Wheezes Gastrointestinal: Yes: Normal Bowel Sounds, Soft. No: Tenderness Musculoskeletal: Yes: Other (No kyphosis) Extremities: No: Cold, Cyanosis Edema: No Integumentary: No: Jaundice Neurological: Yes: Alert, Oriented (x3) Psychiatric: No: Agitated Labs: CBC, BMP 10/06/18 05:30 10/03/18 09:40 INR, PTT INR 1.05 (0.83-1.09) 10/02/18 18:41 Assessment/Plan cta chest: bl pe's, no chf le duplex: r dvt ecg: sinus tachy, new rbbb echo 09/2018: nl lv, mild-mod rve, mild-mod dec rv fcn, mild mr, mild tr, nl rvsp tele: NSR a/p: 38 f hx factor v leiden, seizures, hypothyroid, 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 sob, PE, dvt, factor v leiden: -pt with large bl pe's. she has evidence of right heart strain with +trops, new RBBB on ecg, and enlarged and hypokinetic RV on echo-->underwent catheter directed thrombolysis-->started on Lovenox -AC plan (short- and long-term) per heme -hemodynamically stable, no right-sided CHF -will need outpt cardio f/u to monitor RV fcn hypothyroid: -tsh wnl
--- NOTE | 2018-10-06 11:45 | PN ---
Progress Note, Physician Chief Complaint: patient seen and examined says she is much better just gets slightly SOB when she ambulates to bathroom - Current Medication List Current Medications: Active Medications Acetaminophen (Tylenol -) 650 mg PO Q4H PRN PRN Reason: MILD PAIN Last Admin: 10/06/18 09:00 Dose: 650 mg Albuterol Sulfate (Ventolin Hfa Inhaler -) 2 puff IH Q6H PRN PRN Reason: SHORT OF BREATH/WHEEZING Alprazolam (Xanax -) 1 mg PO Q8H PRN PRN Reason: ANXIETY Last Admin: 10/06/18 03:05 Dose: 1 mg Chlorhexidine Gluconate (Hibiclens For Decolonization -) 1 applic TP HS [facility] Last Admin: 10/05/18 21:14 Dose: 1 applic Enoxaparin Sodium (Lovenox -) 120 mg SQ BID [facility] Last Admin: 10/06/18 09:27 Dose: 120 mg Levothyroxine Sodium (Synthroid -) 50 mcg PO DAILY@0700 [facility] Last Admin: 10/06/18 06:01 Dose: 50 mcg Methadone HCl (Dolophine -) 40 mg PO DAILY [facility] Last Admin: 10/06/18 09:26 Dose: 40 mg Mupirocin (Bactroban Ointment (For Decolonization) -) 1 applic NS BID [facility] Stop: 10/08/18 09:59 Last Admin: 10/06/18 09:25 Dose: 1 applic Topiramate (Topamax -) 50 mg PO BID [facility] Last Admin: 10/06/18 09:28 Dose: 50 mg - Objective Vital Signs: Vital Signs Temperature 98.2 F 10/06/18 06:00 Pulse Rate 68 10/06/18 06:00 Respiratory Rate 18 10/06/18 07:54 Blood Pressure 105/67 10/06/18 06:00 O2 Sat by Pulse Oximetry (%) 97 10/06/18 07:51 Constitutional: Yes: Calm Cardiovascular: Yes: Regular Rate and Rhythm, S1, S2 Respiratory: Yes: CTA Bilaterally, Diminished (at bases) Gastrointestinal: Yes: Normal Bowel Sounds, Soft Neurological: Yes: Alert, Oriented Labs: CBC, BMP 10/06/18 05:30 10/03/18 09:40 INR, PTT INR 1.05 (0.83-1.09) 10/02/18 18:41 Problem List - Problems (1) Pulmonary emboli Assessment/Plan: s/p pulmonary thrombectomy icu monitiring s/p RIJ cathether removal , TPA completed lovenox bid heme opinion for AC postive troponins now trending down oob to chair Code(s): I26.99 - OTHER PULMONARY EMBOLISM WITHOUT ACUTE COR PULMONALE (2) Hypothyroid Assessment/Plan: synthroid Code(s): E03.9 - HYPOTHYROIDISM, UNSPECIFIED (3) Migraine Assessment/Plan: topimax Code(s): G43.909 - MIGRAINE, UNSP, NOT INTRACTABLE, WITHOUT STATUS MIGRAINOSUS Assessment/Plan on methadone -opioid dependence
--- NOTE | 2018-10-06 12:40 | PN ---
Teaching Attending Note Name of Resident: Giovanni Crews ATTENDING PHYSICIAN STATEMENT I saw and evaluated the patient. I reviewed the resident's note and discussed the case with the resident. I agree with the resident's findings and plan as documented. SUBJECTIVE: Patient seen and examined in the ICU. Awake and alert. Feels overall better. Some NEGRETE. No CP. Intake & Output 10/03/18 10/04/18 10/05/18 10/06/18 22:59 22:59 23:59 23:59 Intake Total 240 Balance 240 Weight 261 lb 4 oz Last Vital Signs Temp Pulse Resp BP Pulse Ox 98.2 F 68 18 105/67 97 10/06/18 06:00 10/06/18 06:00 10/06/18 07:54 10/06/18 06:00 10/06/18 07:51 Active Medications Acetaminophen (Tylenol -) 650 mg PO Q4H PRN PRN Reason: MILD PAIN Last Admin: 10/06/18 09:00 Dose: 650 mg Albuterol Sulfate (Ventolin Hfa Inhaler -) 2 puff IH Q6H PRN PRN Reason: SHORT OF BREATH/WHEEZING Alprazolam (Xanax -) 1 mg PO Q8H PRN PRN Reason: ANXIETY Last Admin: 10/06/18 12:11 Dose: 1 mg Chlorhexidine Gluconate (Hibiclens For Decolonization -) 1 applic TP HS [facility] Last Admin: 10/05/18 21:14 Dose: 1 applic Enoxaparin Sodium (Lovenox -) 120 mg SQ BID [facility] Last Admin: 10/06/18 09:27 Dose: 120 mg Levothyroxine Sodium (Synthroid -) 50 mcg PO DAILY@0700 [facility] Last Admin: 10/06/18 06:01 Dose: 50 mcg Methadone HCl (Dolophine -) 40 mg PO DAILY [facility] Last Admin: 10/06/18 09:26 Dose: 40 mg Mupirocin (Bactroban Ointment (For Decolonization) -) 1 applic NS BID [facility] Stop: 10/08/18 09:59 Last Admin: 10/06/18 09:25 Dose: 1 applic Topiramate (Topamax -) 50 mg PO BID [facility] Last Admin: 10/06/18 09:28 Dose: Not Given GENERAL: The patient is awake, alert, and fully oriented, NAD HEAD: Normal with no signs of trauma. EYES: PERRL, extraocular movements intact, sclera anicteric, conjunctiva clear. No ptosis. ENT: Ears normal, nares patent, oropharynx clear without exudates, moist mucous membranes. NECK: Trachea midline, full range of motion, supple. LUNGS: Clear HEART: Regular rate and rhythm, S1, S2 without murmur, rub or gallop. ABDOMEN: Soft, nontender, nondistended, normoactive bowel sounds, no guarding, no rebound, no hepatosplenomegaly, no masses. EXTREMITIES: 2+ pulses, warm, well-perfused, no edema. NEUROLOGICAL: Non-focal PSYCH: Normal mood, normal affect. SKIN: Warm, dry, normal turgor, no rashes or lesions noted Laboratory Results - last 24 hr 10/06/18 10/06/18 05:30 05:30 WBC 7.9 RBC 4.60 Hgb 12.7 Hct 38.2 MCV 83.1 MCH 27.7 MCHC 33.4 RDW 14.9 Plt Count 187 MPV 7.6 PTT (Actin FS) 36.2 ASSESSMENT/PLAN: S/P IR guided thrombectomy and thrombolysis Submassive Bilateral Pulmonary Embolism Acute hypoxic respiratory failure New RBBB Right mid superficial femoral and popliteal DVT History of Factor 5 Leiden deficiency Methadone maintenance Depression Anxiety Hypothyroidism Seizure D/O AC: Can likely to Coumadin with following of INR O2 as needed OOB to chair Ambulate as tolerated Floor Dr Middleton
[2018-10-06] MEDS ORDERED: WARFARIN NA 5 MG TABLET (UD) PO SCH (18:00)
[2018-10-06 18:04] LABS: INR 1.05 (0.83-1.09); PROTHROMBIN TIME (PATIENT) 12.4 SEC (9.7-13.0)
--- NOTE | 2018-10-06 19:48 | PN ---
Progress Note (short form) - Note Progress Note: Patient seen and examined Consult dictated Presented with an unprovoked submassive bilateral pulmonary emboli with right heart strain and new RBBB. Had mid superficial femoral and popliteal DVT. No recent trips or control. Has history of Factor V leyden deficiency [place] [address] 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 No prophylactic a/c previously. Underwent thrombectomy and thrombolysis on 10/03/18./ Had improvement iin dyspnea post procedure. Additional history of drug abuse on methadone maintenance, seizure disorder , depression, anxiety disorder Family history positive for father with colon ca . No family history of VTE. Daughter with FVL deficiency. General medical health- no PAP smears, mammography , colonoscopy in past. 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 In view of an unprovoked DVT and P.E. ( submassive bilateral) watermelon inspector anticoagulation is required . Coumadin or NOAC can be considered in this setting . Can bridge from lovenox. Not unreasonable to consider malignancy screening with PAP, mamography and colonoscopy in the future despite age. Would be helpful to do thrombophilia screen although this would not casino change attendant. This can be done as outpatient.
[2018-10-06] MEDS ORDERED: ALBUTEROL SO4 8 GM HFA INHALER IH PRN (20:01)
[2018-10-06] MEDS ORDERED: ACETAMINOPHEN 325 MG TABLET (FP) PO PRN (20:01)
[2018-10-07] MEDS: ALPRAZolam 2 MG TABLET PO PRN (06:17)
[2018-10-07] MEDS ORDERED: LEVOTHYROXINE NA 50 MCG TABLET (FP) PO SCH (07:00)
[2018-10-07 08:20] LABS: BASO % 1.7 % (0-2.0); EOS % 5.4 % (0-4.5); HEMATOCRIT 40.5 % (32.4-45.2); HEMOGLOBIN 13.8 GM/dL (10.7-15.3); LYMPH % 27.8 % (8-40); MCH 28.5 pg (25.7-33.7); MCHC 34.2 g/dl (32.0-36.0); MEAN CELL VOLUME 83.5 fl (80-96); MEAN PLT VOLUME 7.7 fl (7.5-11.1); MONO % 5.8 % (3.8-10.2); NEUT % 59.3 % (42.8-82.8); PLATELET COUNT 211 K/MM3 (134-434); RBC 4.85 M/mm3 (3.60-5.2); RDW 14.5 % (11.6-15.6); WHITE BLOOD COUNT 7.9 K/mm3 (4.0-10.0)
[2018-10-07 08:41] LABS: INR 1.13 (0.83-1.09); PROTHROMBIN TIME (PATIENT) 13.4 SEC (9.7-13.0)
[2018-10-07 08:43] LABS: ACTIVATED PTT 36.4 SECONDS (25.2-36.5)
[2018-10-07 08:57] LABS: ALBUMIN 3.4 g/dl (3.4-5.0); ALK PHOS 81 U/L (45-117); ANION GAP 7 MMOL/L (8-16); BILIRUBIN,TOTAL 0.3 mg/dL (0.2-1); BLOOD UREA NITROGEN 11 mg/dL (7-18); CALCIUM 8.2 mg/dL (8.5-10.1); CHLORIDE 107 mmol/L (98-107); CO2 26 mmol/L (21-32); GLUCOSE,RANDOM 91 mg/dL (74-106); POTASSIUM 3.9 mmol/L (3.5-5.1); SGOT/AST 17 U/L (15-37); SGPT/ALT 22 U/L (13-61); SODIUM 139 mmol/L (136-145); TOT PROT 6.8 g/dl (6.4-8.2)
[2018-10-07] MEDS ORDERED: PT OWN MED DRAWER 7, Y5N ONE (09:02)
[2018-10-07] MEDS: ENOXAPARIN NA (PORCINE) 120 MG/0.8 ML DISP.SYRIN SQ SCH (09:06)
[2018-10-07] MEDS: TOPIRAMATE 25 MG TABLET (FP) PO SCH (09:06)
[2018-10-07] MEDS ORDERED: METHADONE HCL 40 MG DISPERSABLE TABLET PO SCH (10:00)
[2018-10-07 10:20] VITALS: BP 111/62; PULSE 88; TEMP 98
--- NOTE | 2018-10-07 10:24 | PN ---
Progress Note (short form) - Note Progress Note: PULMONARY Breathing better but not at baseline. Still some dyspnea with exertion. Vital Signs Period Temp Pulse Resp BP Sys/Humphries Pulse Ox Last 24 Hr 98.0 F-98.3 F 70-88 11-20 100-117/60-79 96 Gen: NAD at rest Heart: RRR Lung: decreased breath sounds at the bases Abd: soft, nontender Ext: no edema CBC, BMP 10/07/18 07:53 10/07/18 07:53 Active Medications Acetaminophen (Tylenol -) 650 mg PO Q4H PRN PRN Reason: MILD PAIN Last Admin: 10/06/18 21:47 Dose: 650 mg Albuterol Sulfate (Ventolin Hfa Inhaler -) 2 puff IH Q6H PRN PRN Reason: SHORT OF BREATH/WHEEZING Alprazolam (Xanax -) 1 mg PO Q8H PRN PRN Reason: ANXIETY Last Admin: 10/07/18 06:17 Dose: 1 mg Enoxaparin Sodium (Lovenox -) 120 mg SQ BID [facility] Last Admin: 10/07/18 09:06 Dose: 120 mg Levothyroxine Sodium (Synthroid -) 50 mcg PO DAILY@0700 [facility] Last Admin: 10/07/18 06:08 Dose: 50 mcg Methadone HCl (Dolophine -) 40 mg PO DAILY [facility] Last Admin: 10/07/18 09:06 Dose: 40 mg Topiramate (Topamax -) 50 mg PO BID [facility] Last Admin: 10/07/18 09:06 Dose: Not Given Warfarin Sodium (Coumadin -) 5 mg PO DAILY@1800 [facility] Last Admin: 10/06/18 17:47 Dose: 5 mg A/P Submassive Pulmonary Emboli +Troponins RBBB s/p Catheter Directed Thrombolysis DVT Factor V Leiden Seizure Disorder Hypothyroidism Methadone Maintenance - continue anticoagulation - ?NOAC if insurance provides coverage - inhaled bronchodilators as needed - O2 to keep SpO2 >90%
[2018-10-07] MEDS ORDERED: APIXABAN 5 MG TABLET PO SCH ×2 (10:45→22:00)
--- NOTE | 2018-10-07 10:45 | DS ---
Physical Examination Vital Signs: Vital Signs Temperature 98.0 F 10/07/18 10:00 Pulse Rate 88 10/07/18 10:00 Respiratory Rate 20 10/07/18 10:00 Blood Pressure 111/62 10/07/18 10:00 O2 Sat by Pulse Oximetry (%) 94 L 10/07/18 09:00 Findings/Remarks: This is a 38 y/o woman with a PMHx of Seizure Disorder, Opiate Dependence (on Methadone), Depression, Hypothyroidism, MVP, Factor V Leiden Deficiency, Severe Obesity. Who presents to the ED with cough and worsening SOB x 3 days. Patient was seen and treated in [facility] 4 days ago for Bronchitis given Azithromycin with no improvement. Patient reports nausea, vomiting and diarrhea x 1 episode. Patient denies fever, dizziness, SNEED, CP, AP, constipation, dysuria. Patient reports URIs in the past. Denies recent travel In the ED the patient was hypoxic- 80s, after receiving 2 nebs prior to arrival. Patient could only speak in four word sentences with, Spo2 92-93%. Presented with an unprovoked submassive bilateral pulmonary emboli with right heart strain and new RBBB. Had mid superficial femoral and popliteal DVT. No recent trips or control. Has history of Factor V leyden deficiency [place] [address] 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 No prophylactic a/c previously. Underwent thrombectomy and thrombolysis on 10/03/18./ Had improvement iin dyspnea post procedure. Additional history of drug abuse on methadone maintenance, seizure disorder , depression, anxiety disorder Family history positive for father with colon ca . No family history of VTE. Daughter with FVL deficiency. General medical health- no PAP smears, mammography , colonoscopy in past. Constitutional: Yes: Well Nourished, No Distress, Calm Cardiovascular: Yes: Regular Rate and Rhythm Respiratory: Yes: Regular Gastrointestinal: Yes: Normal Bowel Sounds, Soft Musculoskeletal: Yes: WNL Extremities: Yes: WNL Edema: No Peripheral Pulses WNL: Yes Neurological: Yes: Alert, Oriented Psychiatric: Yes: Alert, Oriented Labs: CBC, BMP 10/07/18 07:53 10/07/18 07:53 Discharge Summary Reason For Visit: ACUTE RESPIRATORY FAILURE WITH HYPOXIA, Current Active Problems Acute respiratory failure with hypoxia (Acute) Elevated troponin (Acute) Hypothyroid (Acute) Pulmonary emboli (Acute) Hospital Course: Laboratory Last Values WBC 7.9 K/mm3 (4.0-10.0) 10/07/18 07:53 RBC 4.85 M/mm3 (3.60-5.2) 10/07/18 07:53 Hgb 13.8 GM/dL (10.7-15.3) 10/07/18 07:53 Hct 40.5 % (32.4-45.2) 10/07/18 07:53 MCV 83.5 fl (80-96) 10/07/18 07:53 MCH 28.5 pg (25.7-33.7) 10/07/18 07:53 MCHC 34.2 g/dl (32.0-36.0) 10/07/18 07:53 RDW 14.5 % (11.6-15.6) 10/07/18 07:53 Plt Count 211 K/MM3 (134-434) 10/07/18 07:53 MPV 7.7 fl (7.5-11.1) 10/07/18 07:53 Absolute Neuts (auto) 4.7 K/mm3 (1.5-8.0) 10/07/18 07:53 Neutrophils % 59.3 % (42.8-82.8) D 10/07/18 07:53 Lymphocytes % 27.8 % (8-40) D 10/07/18 07:53 Monocytes % 5.8 % (3.8-10.2) 10/07/18 07:53 Eosinophils % 5.4 % (0-4.5) H D 10/07/18 07:53 Basophils % 1.7 % (0-2.0) D 10/07/18 07:53 Nucleated RBC % 0 % (0-0) 10/07/18 07:53 PT with INR 13.40 SEC (9.7-13.0) H 10/07/18 07:53 INR 1.13 (0.83-1.09) H 10/07/18 07:53 PTT (Actin FS) 36.4 SECONDS (25.2-36.5) 10/07/18 07:53 Anticoagulation Therapy No Result Required. 10/03/18 09:30 Puncture Site Right radial 10/03/18 09:30 ABG pH 7.37 (7.35-7.45) 10/03/18 09:30 ABG pCO2 at Pt Temp 35.5 mmHg (35-45) 10/03/18 09:30 ABG pO2 at Pt Temp 263.0 mmHg (80-100) H* 10/03/18 09:30 ABG HCO3 20.0 meq/L (22-26) L 10/03/18 09:30 ABG O2 Sat (Measured) 99.5 % (90-98.9) H 10/03/18 09:30 ABG O2 Content 18.2 % vol (15-22) 10/03/18 09:30 ABG Base Excess -4.2 meq/l (-2-2) L 10/03/18 09:30 Ld Test Positive 10/03/18 09:30 VBG pH 7.34 (7.32-7.42) 10/02/18 19:00 POC VBG pCO2 44.8 mmHg (38-52) 10/02/18 19:00 POC VBG pO2 30.7 mmHg (28-48) D 10/02/18 19:00 VBG HCO3 23.7 % (90-98.9) L* 10/02/18 19:00 VBG O2 Sat (Trisha) 53.2 meq/L (19-25) H* 10/02/18 19:00 VBG Base Excess -1.7 meq/l (-2-2) 10/02/18 19:00 Carboxyhemoglobin 0.3 gm% (0.5-2.0) L 10/02/18 22:20 Methemoglobin 0.3 % (0.4-1.5) L 10/02/18 22:20 O2 Delivery Device No Result Required. 10/03/18 09:30 Oxygen Flow Rate Yes 10/03/18 09:30 Vent Mode No Result Required. 10/03/18 09:30 Vent Rate No Result Required. 10/03/18 09:30 Mechanical Rate No Result Required. 10/03/18 09:30 Pressure Support Vent No Result Required. 10/03/18 09:30 Sodium 139 mmol/L (136-145) 10/07/18 07:53 Potassium 3.9 mmol/L (3.5-5.1) 10/07/18 07:53 Chloride 107 mmol/L (98-107) 10/07/18 07:53 Carbon Dioxide 26 mmol/L (21-32) 10/07/18 07:53 Anion Gap 7 MMOL/L (8-16) L 10/07/18 07:53 BUN 11 mg/dL (7-18) 10/07/18 07:53 Creatinine 1.0 mg/dL (0.55-1.3) 10/07/18 07:53 Creat Clearance w eGFR > 60 (>60) 10/07/18 07:53 Random Glucose 91 mg/dL (74-106) 10/07/18 07:53 Lactic Acid 1.4 mmol/L (0.4-2.0) 10/02/18 18:40 Calcium 8.2 mg/dL (8.5-10.1) L 10/07/18 07:53 Magnesium 2.6 mg/dL (1.8-2.4) H 10/04/18 05:30 Total Bilirubin 0.3 mg/dL (0.2-1) 10/07/18 07:53 AST 17 U/L (15-37) 10/07/18 07:53 ALT 22 U/L (13-61) 10/07/18 07:53 Alkaline Phosphatase 81 U/L (45-117) 10/07/18 07:53 Creatine Kinase 32 U/L (26-192) 10/05/18 05:30 Troponin I 0.27 ng/ml (0.00-0.05) H 10/05/18 05:30 B-Natriuretic Peptide 1539.4 pg/ml (5-125) H 10/02/18 18:40 Total Protein 6.8 g/dl (6.4-8.2) 10/07/18 07:53 Albumin 3.4 g/dl (3.4-5.0) 10/07/18 07:53 TSH 1.15 uIU/ml (0.358-3.74) 10/02/18 18:40 Serum , Qual Negative 10/02/18 18:41 Urine Color Straw 10/03/18 01:00 Urine Appearance Clear 10/03/18 01:00 Urine pH 5.0 (5.0-8.0) 10/03/18 01:00 Ur Specific [place] 1.048 (1.010-1.035) H 10/03/18 01:00 Urine Protein Negative (NEGATIVE) 10/03/18 01:00 Urine Glucose (UA) Negative (NEGATIVE) 10/03/18 01:00 Urine Ketones Negative (NEGATIVE) 10/03/18 01:00 Urine Blood 1+ (NEGATIVE) H 10/03/18 01:00 Urine Nitrite Negative (NEGATIVE) 10/03/18 01:00 Urine Bilirubin Negative (<2.0 mg/dL) 10/03/18 01:00 Urine Urobilinogen Negative mg/dL (0.2-1.0) 10/03/18 01:00 Ur Leukocyte Esterase Negative (NEGATIVE) 10/03/18 01:00 Urine WBC (Auto) 1 /hpf (3-5) 10/03/18 01:00 Urine RBC (Auto) <1 /hpf (0-3) 10/03/18 01:00 Ur Epithelial Cells Rare /HPF (FEW) 10/03/18 01:00 Urine Mucus Rare 10/03/18 01:00 Stool Occult Blood Negative (NEGATIVE) 10/04/18 16:15 Microbiology 10/02/18 18:44 Blood - Peripheral Venous Blood Culture - Preliminary NO GROWTH OBTAINED AFTER 96 HOURS, INCUBATION TO CONTINUE FOR 1 DAYS. 10/02/18 18:44 Blood - Peripheral Venous Blood Culture - Preliminary NO GROWTH OBTAINED AFTER 96 HOURS, INCUBATION TO CONTINUE FOR 1 DAYS. 10/03/18 01:00 Urine - Urine Clean Catch Urine Culture - Final NO GROWTH OBTAINED 10/03/18 06:00 Urine For Antigen Detection Legionella Antigen - Final 10/03/18 06:00 Urine For Antigen Detection Streptococcus pneumoniae Antigen (M - Final Vital Signs Temp 98.0 F 10/07/18 10:00 Pulse 88 10/07/18 10:00 Resp 20 10/07/18 10:00 BP 111/62 10/07/18 10:00 Pulse Ox 94 L 10/07/18 09:00 Intake & Output 10/06/18 10/06/18 10/07/18 11:59 23:59 11:59 Intake Total 240 300 Balance 240 300 Weight 118.501 kg 120.344 kg Intake: Oral 240 300 Other: Voiding Method Toilet Toilet Toilet # Unmeasured Voids Void 1 3 Bowel Movement No Weight Measurement Method [facility] Condition: Stable - Instructions Referrals: Jeet Rawls MD [Staff Physician] - 2 Weeks (repeat echo) José Miguel Peter MD [Primary Care Provider] - Disposition: HOME - Home Medications Comprehensive Discharge Medication List: Ambulatory Orders Alprazolam [Xanax] 2 mg PO TID 01/05/16 Topiramate [Topamax -] 50 mg PO BID 12/13/17 Levothyroxine [Synthroid -] 50 mcg PO DAILY #30 tablet 12/16/17 Methadone [Dolophine -] 50 mg PO DAILY 12/16/17 Quetiapine Fumarate [Seroquel] 100 mg PO HS #30 tablet 12/17/17 Hydrocortisone Acetate [Hydrocortisone] 28 gm TP BID PRN #1 oint...g. 03/08/18 Albuterol Sulfate Inhaler - [Ventolin HFA Inhaler -] 1 - 2 inh PO QID #1 inhaler 06/05/18 Acetaminophen [Tylenol .Regular Strength -] 650 mg PO Q4H PRN tablet 10/07/18 Apixaban [Eliquis -] 5 mg PO BID #60 tablet 10/07/18
--- NOTE | 2018-10-07 11:57 | PN ---
Progress Note (short form) - Note Progress Note: [facility] *LIVE* Progress Note (SOAP) Patient Name: WENDY PLASCENCIA Date of : 82 Patient Status: Inpatient Attending Provider: José Miguel Peter Date: 10/06/18 10:28 Initialization Date: 10/06/18 10:28 Progress Note, Physician Chief Complaint: sob History of Present Illness: remains much improved [id number], but still a bit breathless sometimes, with activity especially. no cp, palpit, syncope no cigs - Current Medication List Current Medications: Active Medications Acetaminophen (Tylenol -) 650 mg PO Q4H PRN PRN Reason: MILD PAIN Last Admin: 10/06/18 09:00 Dose: 650 mg Albuterol Sulfate (Ventolin Hfa Inhaler -) 2 puff IH Q6H PRN PRN Reason: SHORT OF BREATH/WHEEZING Alprazolam (Xanax -) 1 mg PO Q8H PRN PRN Reason: ANXIETY Last Admin: 10/06/18 03:05 Dose: 1 mg Chlorhexidine Gluconate (Hibiclens For Decolonization -) 1 applic TP HS [facility] Last Admin: 10/05/18 21:14 Dose: 1 applic Enoxaparin Sodium (Lovenox -) 120 mg SQ BID [facility] Last Admin: 10/06/18 09:27 Dose: 120 mg Levothyroxine Sodium (Synthroid -) 50 mcg PO DAILY@0700 [facility] Last Admin: 10/06/18 06:01 Dose: 50 mcg Methadone HCl (Dolophine -) 40 mg PO DAILY [facility] Last Admin: 10/06/18 09:26 Dose: 40 mg Mupirocin (Bactroban Ointment (For Decolonization) -) 1 applic NS BID [facility] Stop: 10/08/18 09:59 Last Admin: 10/06/18 09:25 Dose: 1 applic Topiramate (Topamax -) 50 mg PO BID [facility] Last Admin: 10/06/18 09:28 Dose: 50 mg - Objective Vital Signs: Vital Signs Temperature 98.2 F 10/06/18 06:00 Pulse Rate 68 10/06/18 06:00 Respiratory Rate 18 10/06/18 07:54 Blood Pressure 105/67 10/06/18 06:00 O2 Sat by Pulse Oximetry (%) 97 10/06/18 07:51 Constitutional: Yes: Obese Eyes: No: Sclera Icterus HENT: No: Nasal Congestion Cardiovascular: Yes: Regular Rate and Rhythm, S1, S2, Other (PMI non diplaced). No: Gallop, Murmur Respiratory: Yes: CTA Bilaterally. No: Accessory Muscle Use, Rales, Wheezes Gastrointestinal: Yes: Normal Bowel Sounds, Soft. No: Tenderness Musculoskeletal: Yes: Other (No kyphosis) Extremities: No: Cold, Cyanosis Edema: No Integumentary: No: Jaundice Neurological: Yes: Alert, Oriented (x3) Psychiatric: No: Agitated Labs: CBC, BMP 10/06/18 05:30 10/03/18 09:40 INR, PTT INR 1.05 (0.83-1.09) 10/02/18 18:41 Assessment/Plan cta chest: bl pe's, no chf le duplex: r dvt ecg: sinus tachy, new rbbb echo 09/2018: nl lv, mild-mod rve, mild-mod dec rv fcn, mild mr, mild tr, nl rvsp a/p: 38 f hx factor v leiden, seizures, hypothyroid, 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 sob, PE, dvt, factor v leiden: -pt with large bl pe's. she has evidence of right heart strain with +trops, new RBBB on ecg, and enlarged and hypokinetic RV on echo-->underwent catheter directed thrombolysis-->started on Lovenox -AC plan (short- and long-term) per heme, now on eliquis -hemodynamically stable, no right-sided CHF -will need outpt cardio f/u to monitor RV fcn hypothyroid: -tsh wnl
--- NOTE | 2018-10-07 21:10 | CONS ---
DATE OF CONSULTATION: 10/06/2018 REQUESTING PHYSICIAN: Momo Plascencia MD This is a 38-year-old female who presented on October 02 with several days of shortness of breath and difficulty breathing. Evaluation revealed a chest CT scan with extensive pulmonary emboli in the main pulmonary artery as well as in the proximal and distal branches bilaterally. There was no saddle embolus detected. Patient underwent a vascular study which revealed a DVT in the right mid superficial femoral and popliteal veins. 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 The patient was found to have a submassive bilateral pulmonary embolism with new right bundle branch block with mild elevation of troponins secondary to the large PEs with right heart strain. The patient underwent a thrombectomy with thrombolysis by Interventional Radiology. Thrombectomy was October 03. Thrombolysis was October 03. The patient has a history of factor V Leiden deficiency which was detected [place] [address] 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 Patient had been previously on control pills prior to that and has been on no control pills since. The patient has had no recent long trips as well. SOCIAL HISTORY: The patient is on methadone maintenance, having been on drugs in the past. She denies IV heroin and cocaine, however. She denies significant alcohol. She said she smoked briefly in a younger age. 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 FAMILY HISTORY: Includes the father who had colon cancer; mother with diabetes, hypertension. There are 5 siblings without significant illnesses. ALLERGIES: PENICILLIN and SULFA. CURRENT MEDICATIONS: Include Tylenol, Bactroban, Lovenox, Coumadin just initiated, Topamax, Xanax, Ventolin, Hibiclens, methadone 40 daily, Synthroid 50 mcg daily. REVIEW OF SYSTEMS: Patient has had headaches. No diplopia or blurry vision. No epistaxis. No dysphagia. Some shortness of breath 3-4 days prior to admission. Some shortness of breath currently. The patient has been pretty much bed confined most recently. Patient has reflux and some chest pain. Patient never had a mammogram. Patient denies nausea, vomiting, diarrhea, constipation. The patient states she has menses twice per month, lasting 4-5 days. Patient denies significant back pain, bone pain, does have lower extremity edema. CURRENT PHYSICAL EXAMINATION: Vital Signs: BP 117/79, pulse 77, respiratory rate 18, afebrile. HEENT: MY. EOM intact. Oropharynx unremarkable. Lungs: Scattered rhonchi, wheezes. Cardiac: Regular rhythm. Breasts: Pendulous. No dominant masses. Abdomen: Soft. No masses, organomegaly. Extremities: Lower extremity 1+ edema. Skin: Patient has a nose ring. Patient has tattoos on her extremities. LABORATORY: WBC 7.9, hematocrit 38.2, platelets 187 with normal differential. Patient on Lovenox; INR 1.5. Coumadin just initiated. Chemistries: 140, 4.2, 111, 22. Electrolytes: BUN 11, creatinine 0.5. Random glucose 125, calcium 7.7, magnesium 2.6, AST 11, ALT 19, alkaline phosphatase 81. Troponin trending down, still elevated at 0.27. Protein 7, albumin 3.3. test negative. TSH 1.15. Chest CT angiogram: Bilateral extensive pulmonary emboli, vascular as afore mentioned. DVT right mid superficial femoral and popliteal veins. This patient has a factor V Leiden deficiency. Studies have demonstrated an increased risk of VTE individual with factor V Leiden mutations. Additional risks can be seen in people who are homozygous for factor V Leiden mutation as well as co-inheritance of other thrombophilias with factor V Leiden. and hormonal contraceptives also add to the additional potential VTE risk. Factor V Leiden heterozygotes can be treated similar to the general population. Ordinarily, they do not require prophylactic anticoagulants or antiplatelet agents unless there is a clinical indication. In the face of acute VTE, anticoagulation for at least 3-6 months is recommended. Should there be homozygotes or other compound heterozygotes for factor V Leiden or more than 1 inherited hemophilia or thrombophilia in addition to factor Leiden or additional risk factors such as a family history, then probably long-term anticoagulation is necessary. Indefinite anticoagulation should be considered in this particular setting with an unprovoked VTE or a life-threatening PE with extensive proximal DVT. Patient probably should have additional testing for age-related malignancy. Her father has a history of colon cancer recently operated on. The patient does not go for Pap smears, and despite her age of 37, she has not had a mammogram screening. It is probably not unreasonable to do these screening tests in view of the presentation. As far as treatment goes, a NOAC or Coumadin can be considered for therapy. Thanking you. KELECHI KUMAR M.D. MARIAH/[id number]
== END 2018-10-07 14:44 | disposition home or self-care (01) | DRG 950 ==
LOC: JER 18:17 → JERBED 20:33 → JICU 10-03 01:03 → J6S 10-06 15:41
PROVIDERS: ADMIT Family Medicine; ATTEND Family Medicine
PROC: 02CR3ZZ Extirpation of Matter from Left Pulmonary Artery, Percutaneous Approach (ICD-10-PCS; principal; 2018-10-03)
PROC: 02CQ3ZZ Extirpation of Matter from Right Pulmonary Artery, Percutaneous Approach (ICD-10-PCS; 2018-10-03)
PROC: B31TZZZ Fluoroscopy of Left Pulmonary Artery (ICD-10-PCS; 2018-10-03)
PROC: B31SZZZ Fluoroscopy of Right Pulmonary Artery (ICD-10-PCS; 2018-10-03)
DX: I26.99 Other pulmonary embolism without acute cor pulmonale (principal); J96.01 Acute respiratory failure with hypoxia; J96.02 Acute respiratory failure with hypercapnia; G40.909 Epilepsy, unspecified, not intractable, without status epilepticus; F11.20 Opioid dependence, uncomplicated; E03.9 Hypothyroidism, unspecified; F41.8 Other specified anxiety disorders; D68.2 Hereditary deficiency of other clotting factors; I34.1 Nonrheumatic mitral (valve) prolapse; G43.909 Migraine, unspecified, not intractable, without status migrainosus; G47.00 Insomnia, unspecified; K21.9 Gastro-esophageal reflux disease without esophagitis; I45.10 Unspecified right bundle-branch block; R00.0 Tachycardia, unspecified; R74.8 Abnormal levels of other serum enzymes; E66.01 Morbid (severe) obesity due to excess calories; Z68.41 Body mass index [BMI] 40.0-44.9, adult; I82.411 Acute embolism and thrombosis of right femoral vein; I82.431 Acute embolism and thrombosis of right popliteal vein; Z88.0 Allergy status to penicillin
CPT/HCPCS: 36415; 36600; 37187; 37212; 71045-TC-FY; 71275-TC; 80053; 81003; 81015; 82272; 82375; 82550; 82803; 83050; 83605; 83735; 83880; 84443; 84484; 84703; 85025; 85027; 85610; 85730; 87040; 87086; 87899; 93005; 93010; 93306-TC; 93970-TC; 94660; 97116-GP; 97161-GP; 99285-25; C1769; C1887; C1894; J0131; J1644; J2997; J7030

== ENCOUNTER 2020-06-21 23:44 | Inpatient (IN) | payer OTHER ==
[2020-06-22] MEDS ORDERED: ACETAMINOPHEN 1000 MG/100 ML VIAL (NON FORMULARY) IVPB ONE ×2 (01:00→07:18)
[2020-06-22] MEDS ORDERED: ACETAMINOPHEN 500 MG TABLET (FP) ONE (01:30)
[2020-06-22] MEDS ORDERED: SODIUM CHLORIDE 1,000 ML IV ONE (03:19)
[2020-06-22 04:29] LABS: POTASSIUM 3.5 mmol/L (3.5-5.1)
[2020-06-22 04:31] LABS: CALCIUM 9.4 mg/dL (8.5-10.1)
[2020-06-22 04:32] LABS: ALBUMIN 4.6 g/dl (3.4-5.0); BASO % 0.5 % (0-2.0); BLOOD UREA NITROGEN 11.4 mg/dL (7-18); HEMATOCRIT 41.8 % (32.4-45.2); HEMOGLOBIN 13.7 GM/dL (10.7-15.3); MCH 28.1 pg (25.7-33.7); MCHC 32.8 g/dl (32.0-36.0); MEAN CELL VOLUME 85.7 fl (80-96); MEAN PLT VOLUME 8.9 fl (7.5-11.1); MONO % 5.9 % (3.8-10.2); NEUT % 79.6 % (42.8-82.8); PLATELET COUNT 294 K/MM3 (134-434); RBC 4.88 M/mm3 (3.60-5.2); RDW 13.5 % (11.6-15.6); WHITE BLOOD COUNT 11.9 K/mm3 (4.0-10.0)
[2020-06-22 04:35] LABS: CREATININE 1.4 mg/dL (0.55-1.3)
[2020-06-22 04:36] LABS: BILIRUBIN,TOTAL 0.6 mg/dL (0.2-1)
[2020-06-22 05:44] LABS: URINE APPEARANCE CLOUDY; URINE BILIRUBIN NEGATIVE (NEGATIVE); URINE COLOR YELLOW; URINE GLUCOSE (UA) NEGATIVE (NEGATIVE); URINE KETONE NEGATIVE (NEGATIVE); URINE LEUK ESTERASE NEGATIVE (NEGATIVE); URINE NITRITE NEGATIVE (NEGATIVE); URINE PROTEIN NEGATIVE (NEGATIVE); URINE UROBILINOGEN 0.2 mg/dL (0.2-1.0)
[2020-06-22 05:46] LABS: HCG,QUALITATIVE URINE Negative
[2020-06-22 05:47] LABS: URINE BARBITURATES NEGATIVE ng/ml (CUTOFF=200)
[2020-06-22 05:48] LABS: METHADONE, UR NEGATIVE ng/ml (CUTOFF=300); OPIATES, URI NEGATIVE ng/ml (CUTOFF=300); PHENCYCLIDINE,URINE NEGATIVE ng/ml (CUTOFF=25)
[2020-06-22 05:49] LABS: COCAINE, UR NEGATIVE ng/ml (CUTOFF=300)
[2020-06-22 05:54] LABS: URINE AMPHETAMINES POSITIVE ng/ml (CUTOFF=500); URINE BENZODIAZEPINES POSITIVE ng/ml (CUTOFF=200)
[2020-06-22] MEDS ORDERED: levETIRAcetam 500 MG/5 ML INJECTION VIAL IVPB ONE ×2 (06:03→06:25)
[2020-06-22] MEDS ORDERED: ACETAMINOPHEN INJECTION 100 ML IVPB ONE (07:16)
[2020-06-22] MEDS ORDERED: KETOROLAC TROMETHAMINE 15 MG/ML VIAL IVPUSH ONE (08:32)
[2020-06-22] MEDS ORDERED: KETOROLAC TROMETHAMINE 30 MG/1 ML VIAL ONE (08:32)
[2020-06-22 10:06] VITALS: BMI 37.7
[2020-06-22] MEDS: levETIRAcetam 500 MG TABLET (FP) PO SCH ×2 (12:13→21:22)
[2020-06-22] MEDS: TOPIRAMATE 100 MG TABLET PO SCH ×2 (14:25→21:22)
[2020-06-22] MEDS: APIXABAN 5 MG TABLET PO SCH ×2 (14:25→21:22)
[2020-06-22] MEDS: GABAPENTIN 300 MG CAPSULE PO SCH ×2 (14:25→21:22)
[2020-06-22] MEDS: ALPRAZolam 1 MG TABLET PO SCH ×2 (14:26→21:22)
[2020-06-22] MEDS ORDERED: HEPARIN NA (PORCINE) 5,000 UNITS/ML 1ML VIAL SQ SCH (18:00)
[2020-06-23] MEDS: GABAPENTIN 300 MG CAPSULE PO SCH ×2 (06:16→13:24)
[2020-06-23] MEDS: ALPRAZolam 1 MG TABLET PO SCH ×2 (06:16→13:24)
[2020-06-23 09:04] LABS: BASO % 1.6 % (0-2.0); EOS % 2.4 % (0-4.5); HEMATOCRIT 37.7 % (32.4-45.2); HEMOGLOBIN 11.9 GM/dl (10.7-15.3); LYMPH % 27.9 % (8-40); MCH 27.7 pg (25.7-33.7); MCHC 31.6 g/dl (32.0-36.0); MEAN CELL VOLUME 87.6 fl (80-96); MEAN PLT VOLUME 8.9 fl (7.5-11.1); MONO % 6.2 % (3.8-10.2); NEUT % 61.9 % (42.8-82.8); PLATELET COUNT 243 K/MM3 (134-434); RDW 13.1 % (11.6-15.6); WHITE BLOOD COUNT 5.7 K/mm3 (4.0-10.8)
[2020-06-23 09:09] LABS: BILIRUBIN,TOTAL 0.5 mg/dl (0.2-1); CALCIUM 8.7 mg/dl (8.5-10); CREATININE 0.9 mg/dl (0.55-1.3); MAGNESIUM 2.5 mg/dL (1.8-2.4); POTASSIUM 3.6 mmol/L (3.5-5.1); TOT PROT 6.6 g/dl (6.4-8.2)
[2020-06-23] MEDS: levETIRAcetam 500 MG TABLET (FP) PO SCH (09:59)
[2020-06-23] MEDS: TOPIRAMATE 100 MG TABLET PO SCH (09:59)
[2020-06-23] MEDS: APIXABAN 5 MG TABLET PO SCH (09:59)
[2020-06-23 14:31] VITALS: BP 104/69; PULSE 89; TEMP 98.4
== END 2020-06-23 14:30 | disposition home or self-care (01) | DRG 53 ==
LOC: FER 23:44 → FM/S 06-22 08:26
PROVIDERS: ADMIT Internal Medicine; ATTEND Nurse Practitioner Acute Care
DX: G40.909 Epilepsy, unspecified, not intractable, without status epilepticus (principal); D68.2 Hereditary deficiency of other clotting factors; E03.9 Hypothyroidism, unspecified; F41.8 Other specified anxiety disorders; K21.9 Gastro-esophageal reflux disease without esophagitis; I34.1 Nonrheumatic mitral (valve) prolapse; F19.10 Other psychoactive substance abuse, uncomplicated
CPT/HCPCS: 36415; 70450-TC; 71045-TC-FY; 80053; 80307; 81003; 83735; 84703; 85025; 93005; 99285-25; C9803; J0131; U0003

== ENCOUNTER 2020-11-29 12:56 | Emergency (ER) | payer OTHER ==
[2020-11-29 13:09] VITALS: BP 124/86; PULSE 100; TEMP 98.6; BMI 31.6
== END 2020-11-29 13:57 | disposition home or self-care (01) ==
LOC: JERFT 12:56
PROC: 0H9FXZZ Drainage of Right Hand Skin, External Approach (ICD-10-PCS; principal; 2020-11-29)
DX: L02.511 Cutaneous abscess of right hand (principal)
CPT/HCPCS: 10060; 99283-25

== ENCOUNTER 2021-02-10 22:49 | Emergency (ER) | payer OTHER ==
[2021-02-10 23:23] VITALS: BP 106/69; PULSE 73; TEMP 98.3; BMI 34.1
== END 2021-02-11 01:05 | disposition left against medical advice (07) ==
LOC: JER 22:49
DX: R22.43 Localized swelling, mass and lump, lower limb, bilateral (principal); R60.0 Localized edema
CPT/HCPCS: 99281-25

== ENCOUNTER 2021-02-11 13:35 | Emergency (ER) | payer OTHER ==
[2021-02-11 13:52] VITALS: BMI 34.1
[2021-02-11] MEDS ORDERED: ACETAMINOPHEN 500 MG TABLET (FP) PO ONE (14:51)
[2021-02-11] MEDS ORDERED: ACETAMINOPHEN 325 MG TABLET (FP) ONE (14:57)
[2021-02-11 15:13] LABS: BASO % 1.4 % (0-2.0); EOS % 6.5 % (0-4.5); HEMATOCRIT 38.1 % (32.4-45.2); HEMOGLOBIN 12.3 GM/dL (10.7-15.3); LYMPH % 17.1 % (8-40); MCH 28.4 pg (25.7-33.7); MCHC 32.3 g/dl (32.0-36.0); MEAN CELL VOLUME 88.1 fl (80-96); MEAN PLT VOLUME 7.9 fl (7.5-11.1); MONO % 4.4 % (3.8-10.2); NEUT % 70.6 % (42.8-82.8); PLATELET COUNT 269 10^3/uL (134-434); RBC 4.32 M/mm3 (3.60-5.2); RDW 15.5 % (11.6-15.6); WHITE BLOOD COUNT 6.2 K/mm3 (4.0-10.0)
[2021-02-11 15:17] LABS: INR 1.21 (0.83-1.09); PROTHROMBIN TIME (PATIENT) 14.6 SEC (9.7-13.0)
[2021-02-11 15:20] LABS: ACTIVATED PTT 36.4 SECONDS (25.2-36.5)
[2021-02-11 15:30] LABS: CHLORIDE 115 mmol/L (98-107); SODIUM 142 mmol/L (136-145)
[2021-02-11 15:33] LABS: ALBUMIN 3.6 g/dl (3.4-5.0); ANION GAP 7 MMOL/L (8-16); BLOOD UREA NITROGEN 11.3 mg/dL (7-18); CO2 20 mmol/L (21-32); GLUCOSE,RANDOM 86 mg/dL (74-106)
[2021-02-11 15:36] LABS: CREATININE 0.9 mg/dL (0.55-1.3); SGOT/AST 13 U/L (15-37); SGPT/ALT 12 U/L (13-61)
[2021-02-11 15:38] LABS: BILIRUBIN,TOTAL 0.3 mg/dL (0.2-1); TOT PROT 6.6 g/dl (6.4-8.2)
[2021-02-11 15:39] LABS: ALK PHOS 69 U/L (45-117)
[2021-02-11 15:41] LABS: N-TERMINAL BNP 363.6 pg/ml (5-125)
[2021-02-11 18:38] VITALS: BP 101/42; PULSE 54; TEMP 97
== END 2021-02-11 21:20 | disposition home or self-care (01) ==
LOC: JER 13:35
DX: R60.0 Localized edema (principal)
CPT/HCPCS: 36415; 80053; 82550; 83880; 84484; 85025; 85610; 85730; 93970-TC; 99284-25

== ENCOUNTER 2021-11-19 18:33 | Emergency (ER) | payer OTHER ==
[2021-11-19 18:41] VITALS: BMI 33.3
[2021-11-19] MEDS ORDERED: METOCLOPRAMIDE HCL INJECTION 10 MG/2 ML VIAL IVPUSH ONE (19:49)
[2021-11-19] MEDS ORDERED: ACETAMINOPHEN 1000 MG/100 ML BAG IVPB ONE (19:49)
[2021-11-19] MEDS ORDERED: SODIUM CHLORIDE 0.9% 500 ML INFUS.BAG IV ONE (19:49)
[2021-11-19] MEDS ORDERED: METOCLOPRAMIDE HCL INJECTION 10 MG/2 ML VIAL ONE (19:58)
[2021-11-19] MEDS ORDERED: ACETAMINOPHEN INJECTION 100 ML IVPB ONE (19:59)
[2021-11-19 20:35] LABS: BASO % 1.2 % (0-2.0); EOS % 4.6 % (0-4.5); HEMATOCRIT 40.7 % (32.4-45.2); HEMOGLOBIN 13.7 GM/dL (10.7-15.3); LYMPH % 36.6 % (8-40); MCHC 33.7 g/dl (32.0-36.0); MEAN CELL VOLUME 89.2 fl (80-96); MONO % 4.8 % (3.8-10.2); NEUT % 52.8 % (42.8-82.8); PLATELET COUNT 263 10^3/uL (134-434); RBC 4.56 M/mm3 (3.60-5.2); RDW 14.5 % (11.6-15.6)
[2021-11-19 20:56] LABS: BLOOD UREA NITROGEN 10.3 mg/dL (7-18); CALCIUM 8.5 mg/dL (8.5-10.1)
[2021-11-19 21:01] LABS: BILIRUBIN,TOTAL 0.4 mg/dL (0.2-1); TOT PROT 7.1 g/dl (6.4-8.2)
[2021-11-19] MEDS ORDERED: traMADol HCL 50 MG TABLET PO ONE (22:53)
[2021-11-19] MEDS ORDERED: traMADol HCL 50 MG TABLET ONE (22:54)
[2021-11-20 01:10] VITALS: BP 133/76; PULSE 64; TEMP 97.8
== END 2021-11-20 01:33 | disposition home or self-care (01) ==
LOC: JER 18:33
PROC: 3E033GC Introduction of Other Therapeutic Substance into Peripheral Vein, Percutaneous Approach (ICD-10-PCS; principal; 2021-11-19)
DX: R51.9 Headache, unspecified (principal); H53.8 Other visual disturbances
CPT/HCPCS: 36415; 70450-TC; 70486-TC; 80053; 85025; 96374; 96375; 99285-25

== ENCOUNTER 2022-05-23 17:50 | Emergency (ER) | payer OTHER ==
[2022-05-23 17:56] VITALS: BP 99/68; PULSE 84; RESP 18; TEMP 98; BMI 34.1
== END 2022-05-23 23:14 | disposition home or self-care (01) ==
LOC: JERFT 17:50
DX: M25.562 Pain in left knee (principal); M79.642 Pain in left hand; V49.40XA Driver injured in collision with unspecified motor vehicles in traffic accident, initial encounter
CPT/HCPCS: 73130-TC-LT-FY; 73562-TC-LT-FY; 99284-25

== ENCOUNTER 2022-10-09 00:05 | Emergency (ER) | payer OTHER ==
[2022-10-09 00:30] VITALS: BP 104/55; PULSE 96; RESP 18; TEMP 98.6; BMI 35.7
[2022-10-09 02:44] LABS: BASO % 0.3 % (0-2.0); EOS % 0.5 % (0-4.5); HEMATOCRIT 40.2 % (32.4-45.2); HEMOGLOBIN 13.3 GM/dL (10.7-15.3); LYMPH % 12.8 % (8-40); MCH 29.1 pg (25.7-33.7); MCHC 33.1 g/dl (32.0-36.0); MEAN PLT VOLUME 8.7 fl (7.5-11.1); MONO % 5.5 % (3.8-10.2); NEUT % 80.9 % (42.8-82.8); PLATELET COUNT 232 10^3/uL (134-434); RBC 4.57 M/mm3 (3.60-5.2); RDW 13.3 % (11.6-15.6); WHITE BLOOD COUNT 10.4 K/mm3 (4.0-10.0)
[2022-10-09 02:53] LABS: CHLORIDE 107 mmol/L (98-107); SODIUM 138 mmol/L (136-145)
[2022-10-09 02:54] LABS: INR 1.14 (0.83-1.09); PROTHROMBIN TIME (PATIENT) 13.2 SEC (9.7-13.0)
[2022-10-09 02:55] LABS: CALCIUM 8.9 mg/dL (8.5-10.1)
[2022-10-09 02:56] LABS: ACTIVATED PTT 33.8 SECONDS (25.2-36.5); ALBUMIN 4.1 g/dl (3.4-5.0); ANION GAP 4 MMOL/L (8-16); CO2 27 mmol/L (21-32); GLUCOSE,RANDOM 86 mg/dL (74-106)
[2022-10-09 02:59] LABS: CREATININE 1.1 mg/dL (0.55-1.3); SGOT/AST 31 U/L (15-37); SGPT/ALT 16 U/L (13-61)
[2022-10-09 03:00] LABS: TOT PROT 7.5 g/dl (6.4-8.2)
[2022-10-09 03:01] LABS: BILIRUBIN,TOTAL 0.3 mg/dL (0.2-1)
[2022-10-09 03:02] LABS: ALK PHOS 86 U/L (45-117)
[2022-10-09] MEDS ORDERED: BACITRACIN 0.9 GM PACKET TP ONE (03:02)
[2022-10-09] MEDS ORDERED: BACITRACIN 0.9 GM PACKET ONE (03:05)
== END 2022-10-09 04:18 | disposition home or self-care (01) ==
LOC: JER 00:05
DX: R41.82 Altered mental status, unspecified (principal); T22.212A Burn of second degree of left forearm, initial encounter; X08.8XXA Exposure to other specified smoke, fire and flames, initial encounter
CPT/HCPCS: 36415; 70450-TC; 72125-TC; 80053; 80307; 83605; 84484; 85025; 85610; 85730; 93005; 93010; 99285-25

== ENCOUNTER 2022-12-31 21:16 | Emergency (ER) | payer OTHER ==
[2022-12-31 21:47] VITALS: BP 118/74; PULSE 85; RESP 16; TEMP 97.6; BMI 36.6
== END 2022-12-31 22:18 | disposition home or self-care (01) ==
LOC: JER 21:16
DX: Z00.00 Encounter for general adult medical examination without abnormal findings (principal)
CPT/HCPCS: 82962; 99282-25